=== PATIENT | female | born 1935 | race Caucasian/White ===

== ENCOUNTER 2016-10-04 10:51 | Inpatient (IN) | payer MEDICARE, OTHER ==
--- NOTE | 2016-10-04 11:23 | ED ---
General Adult HPI - General Chief complaint: Abdominal Pain Stated complaint: Abdominal pain Time Seen by Provider: 10/04/16 11:10 Source: patient, RN/MD, EMS, RN notes reviewed Mode of arrival: EMS Limitations: no limitations - History of Present Illness Initial comments: Patient is a pleasant 81-year-old female presenting from [facility] transfer with concern for abdominal free air on computed tomography scan. Patient states she did have hip replacement done just over a week ago. Patient has chronic abdominal pain which has been worse the past 3 days. Patient admits also to having some chest pain and shortness of breath which she also believes may be somewhat chronic. Patient states discomfort is severe at this time. Patient is a poor historian. Patient relates her abdominal discomfort to irritable bowel syndrome however states nobody will tell her why she has this. - Related Data Home Medications Medication Instructions Recorded Confirmed Carvedilol [Coreg] 6.25 mg PO BID 04/11/14 05/17/14 Hydrochlorothiazide [Hydrodiuril] 12.5 mg PO DAILY 04/11/14 05/17/14 Losartan Potassium [Cozaar] 50 mg PO DAILY 04/11/14 05/17/14 Pioglitazone HCl [Actos] 45 mg PO DAILY 04/11/14 05/17/14 glipiZIDE [Glucotrol] 5 mg PO DAILY 04/11/14 05/17/14 metFORMIN HCL [metFORMIN HCL ER] 1,000 mg PO BID 04/11/14 05/17/14 Previous Rx's Medication Instructions Recorded Cephalexin [Keflex] 500 mg PO Q8HR #30 cap 04/11/14 traMADol HCl [Ultram] 50 mg PO Q6H PRN #20 tab 04/11/14 Dicyclomine [Bentyl] 20 mg PO QID #30 tablet 05/17/14 Hydrocodone/Acetaminophen [[place] 1 - 2 each PO Q6HR PRN #5 tab 05/17/14 5-325] Allergies Allergy/AdvReac Type Severity Reaction Status Date / Time ciprofloxacin [From Cipro] AdvReac Nausea & Verified 10/04/16 12:05 Vomiting & Diarrhea levofloxacin [From Levaquin] AdvReac Nausea & Verified 10/04/16 12:05 Vomiting & Diarrhea Review of Systems ROS Statement: Those systems with pertinent positive or pertinent negative responses have been documented in the HPI. ROS Other: All systems not noted in ROS Statement are negative. Constitutional: Denies: fever Eyes: Denies: eye pain ENT: Denies: ear pain Respiratory: Reports: dyspnea. Denies: cough Cardiovascular: Reports: chest pain Endocrine: Reports: fatigue Gastrointestinal: Reports: abdominal pain, nausea Genitourinary: Denies: dysuria Musculoskeletal: Denies: back pain Skin: Denies: rash Neurological: Denies: weakness Past Medical History Past Medical History: Coronary Artery Disease (CAD), Diabetes Mellitus, Hypertension History of Any Multi-Drug Resistant Organisms: None Reported Past Surgical History: Coronary Bypass/CABG, Heart Catheterization With Stent, Orthopedic Surgery Past Psychological History: No Psychological Hx Reported Smoking Status: Never smoker Past Alcohol Use History: None Reported Past Drug Use History: None Reported General Exam Limitations: no limitations General appearance: alert, in no apparent distress, other (Patient is resting comfortably in bed and does not appear in any distress.) Head exam: Present: atraumatic Eye exam: Present: normal appearance, PERRL ENT exam: Present: normal oropharynx Neck exam: Present: normal inspection Respiratory exam: Present: normal lung sounds bilaterally. Absent: chest wall tenderness Cardiovascular Exam: Present: regular rate, normal rhythm Expanded Peripheral pulses: 2+: Dorsalis Pedis (R), Dorsalis Pedis (L) GI/Abdominal exam: Present: soft, tenderness (Mild tenderness lower abdomen), normal bowel sounds. Absent: distended, guarding, rebound, rigid Extremities exam: Present: normal inspection Neurological exam: Present: alert Psychiatric exam: Present: normal affect, normal mood Skin exam: Present: normal color Course Vital Signs 10/04/16 11:09 Temperature 97.8 F Pulse Rate 97 Respiratory 18 Rate Blood Pressure 138/117 O2 Sat by Pulse 99 Oximetry - Reevaluation(s) Reevaluation #1: 10/04/16 11:23 Surgeon has been paged 10/04/16 11:26 Dr. Ann was notified who is currently in the OR. EKG Findings - EKG Comments: EKG Findings:: Normal sinus rhythm 91. CT 172. QRS 80. QT 362. QTC 445. Normal axis. Normal QRS. Normal ST-T. Medical Decision Making - Medical Decision Making Dr. Ann did come evaluate the patient and will admit to ICU. He will also do a vaginal exam. Consult with medicine and cardiology. Hold Plavix. Consult with Dr. Kaur from pulmonary. Zosyn alone. - Radiology Data Radiology results: report reviewed (Computed tomography scan of the abdomen pelvis does show intraperitoneal free air. Concern for colonic vaginal fistula. ) Disposition Clinical Impression: Free intraperitoneal air Disposition: ADMITTED IP TO THIS HOSP Referrals: Dewayne Spears MD [Primary Care Provider] - 1-2 days Time of Disposition: 13:08
[2016-10-04] MEDS ORDERED: SODIUM CHLORIDE 0.9% 1,000 ML IV STA (11:26)
--- NOTE | 2016-10-04 12:38 | CT ---
EXAMINATION TYPE: CT abdomen pelvis wo con DATE OF EXAM: 10/04/2016 COMPARISON: 04/11/[address] chest same day. HISTORY: 81-year-old female abdominal pain. Free air and UTI CT DLP: 916 mGycm. Automated exposure control for dose reduction was used. TECHNIQUE: Contiguous axial scanning of the abdomen and pelvis without IV contrast. Coronal and sagit clifford reconstructions performed. FINDINGS: Heart is normal size without pericardial effusion. Coronary vessel calcifications are remarkable for coronary artery disease. There is a moderate to large hiatal hernia with a free air seen dissecting up along with the hiatal h ernia. Lung bases clear without pleural effusion. There is mild free intraperitoneal air nondependently located collecting under the hemidiaphragms and hepatorenal recess and a small focus in the juan hepatis as well. 1.8 cm cyst left hepatic lobe. Noncontrast appearance of the liver, adrenal glands, spleen with exten sive splenic artery calcifications, and atrophic pancreas show no gross abnormality by noncontrast te chnique. Large 4.1 cm cyst upper pole right kidney and a couple hypodense lesions on both sides measuring up t o 1.4 cm on the right too small for accurate CT characterization, probable cysts. Moderate apical scarring calcifications throughout the abdominal aorta and iliac arteries. No dilated small bowel, free fluid, or free air. No mesenteric or retroperitoneal lymphadenopathy. There is mild presacral edema but no significant free fluid seen in the abdomen. There is left hemicolonic diverticulosis. No pericolonic inflammatory change. IV contrast from the patient's outside CT chest exam collecting within the bladder. There is prominent air distending the uterine cavity. Air within the rectum, axial image 72 closely c ontacts air within the vaginal canal. No abnormal fluid collection in the pelvis. There appears to be relatively recent fixation of a left intertrochanteric fracture which can be everett elated clinically. There is a 4.8 cm focal area of soft tissue density along the left lateral hip lat eral to the greater trochanter that could represent a small postoperative hematoma or seroma. Degener ative changes throughout the lumbar spine. IMPRESSION: 1. Free intraperitoneal air. There is colonic diverticulosis without clear evidence for acute divert iculitis. 2. There is additional prominent air distending the uterine cavity and air within the rectum in clos e apposition to air within the vaginal canal (axial image 72). Correlate to exclude the possibility o f a fistula. Otherwise, no evident source of the free air is identified. 3. Moderate to large hiatal hernia. 4. Clinical correlation is recommended. There are inflammatory changes associated with intertrochant alison fracture of the left hip with fixation hardware present. Findings suggest recent internal fixati on. There is a 4.8 cm adjacent soft tissue hematoma or seroma.
[2016-10-04] MEDS ORDERED: NALOXONE 0.4 MG/ML 1 ML VIAL IV PRN (13:09)
[2016-10-04 13:12] LABS: Appearance,Urine Cloudy (Clear); Bilirubin,Urine Negative (Negative); Glucose,Urine (UA) Negative (Negative); Ketones,Urine Negative (Negative); Leukocyte Esterase,Urine Large (Negative); Nitrite,Urine Negative (Negative); Particle Count 9505; Protein,Urine Trace (Negative); RBC,Urine 13 /hpf (0-5); Specific Gravity,Urine 1.021 (1.001-1.035); Squamous Epithelial Cell,Urine 1 /hpf (0-4); UA Billing (MACRO vs. MICRO) MICRO; Urobilinogen,Urine <2.0 mg/dL (<2.0); WBC,Urine >182 /hpf (0-5)
[2016-10-04] MEDS ORDERED: PIPERACILLIN-TAZOBACTAM 3.375 GM in DEXTROSE/WATER 1 50ML.BAG IVPB ONE (13:30)
[2016-10-04] MEDS: ONDANSETRON 4 MG/2 ML VIAL IVP PRN ×2 (13:55→21:00)
[2016-10-04] MEDS: MORPHINE SULFATE 4 MG/ML SYRINGE IV PRN ×2 (13:57→19:54)
[2016-10-04 13:58] LABS: Basophils # (A) 0.1 k/uL (0-0.2); Basophils % (A) 1 %; CH 26.4; CHCM 29.4; Eosinophils # (A) 1.6 k/uL (0-0.7); Eosinophils % (A) 16 %; HCT 39.5 % (34.0-46.0); HDW 2.56; Hypochromasia Marked; Luc # (Auto) 0.29; Luc % (Auto) 3; Lymphocytes # (A) 3.8 k/uL (1.0-4.8); Lymphocytes % (A) 37 %; MCH 27.3 pg (25.0-35.0); MCHC 30.3 g/dL (31.0-37.0); Mean Platelet Volume 6.7; Monocytes # (A) 0.8 k/uL (0-1.0); Monocytes % (A) 8 %; Neutrophils # (A) 3.6 k/uL (1.3-7.7); Neutrophils % (A) 36 %; RDW 15.5 % (11.5-15.5); WBC 10.2 k/uL (3.8-10.6); WBC (Perox) 10.48
[2016-10-04 14:14] LABS: INR 1.1 (<1.1); Partial Thromboplastin Time 24.1 sec (22.0-30.0); Prothrombin Time 11.1 sec (9.0-12.0)
[2016-10-04 14:16] LABS: Glucose,Whole Blood 122 mg/dL (75-99)
[2016-10-04 14:30] LABS: ALT 32 U/L (9-52); AST 48 U/L (14-36); Alkaline Phosphatase 109 U/L (38-126); Amylase 51 U/L (30-110); Anion Gap 12 mmol/L; Blood Urea Nitrogen 11 mg/dL (7-17); Calcium 9.8 mg/dL (8.4-10.2); Carbon Dioxide 21 mmol/L (22-30); Chloride 103 mmol/L (98-107); Glucose 131 mg/dL (74-99); Non-African American GFR(MDRD) >60 (>60 ml/min/1.73 sqM); Sodium 136 mmol/L (137-145); Total Bilirubin 0.8 mg/dL (0.2-1.3); Total Protein 7.7 g/dL (6.3-8.2)
[2016-10-04 14:32] LABS: Potassium 5.2 mmol/L (3.5-5.1)
--- NOTE | 2016-10-04 15:17 | P.GSHP ---
History of Present Illness H&P Date: 10/04/16 Chief Complaint: Lower abdominal pain The patient is a very pleasant 81-year-old lady who has a known history of irritable bowel syndrome. She presents with 2-4 weeks of abdominal pain primarily localized in the lower abdomen which is progressively gotten worse. The patient had her hip replaced on August [address] Scanlon at [facility] and was then sent to rehab. Over the rehab she had initially significant problems with constipation and bowel movements and was given MiraLAX and had started moving bowels. Over this pain has worsened becoming an 8-9 out of 10. The pain is well localized in the lower part of the abdomen seems to radiate up towards the epigastrium there is no associated nausea and vomiting she's tolerating liquid diet does have bowel movements is not aware whether she is passing any stool from her vagina. She is not aware if she is passing any flatus from her vagina. She is not able to urinate properly and therefore has a Cole catheter in place she is having regular bowel movements and sometimes has some incontinence. She is unable to say with the stool comes from. There is no history of fever or chills there's some history of weight loss is some limitation of ambulation. She is overall has a complex medical history with significant cardiac problems including last cardiac bypass, couple of stents, diabetes mellitus. She is not complaining of any distention or bloating. She's not complaining of any bleeding per rectum. - Constitutional Constitutional: Reports anorexia, Reports chills, Denies chronic headaches, Denies chronic pain, Denies daytime sleepiness, Denies fatigue, Denies fever - EENT Eyes: denies blurred vision, denies pain Ears, nose, mouth and throat: Denies headache, Denies sore throat - Cardiovascular Cardiovascular: Reports dyspnea on exertion, Denies chest pain - Respiratory Respiratory: Denies cough, Denies 7 - Gastrointestinal Gastrointestinal: Reports as per HPI, Reports abdominal pain - Genitourinary (Female) Comment: indwelling cole Genitourinary: Denies dysuria, Denies hematuria - Musculoskeletal Musculoskeletal: Denies myalgias Past Medical History Past Medical History: Coronary Artery Disease (CAD), Chest Pain / Angina, Diabetes Mellitus, Hyperlipidemia, Hypertension, Myocardial Infarction (AK), Renal Disease Additional Past Medical History / Comment(s): Abdominal pain chronic for past 3 yrs, IBS, diverticular dx, colon spasms, [place] 05/04/16, "leaky heart valve", NIDDM type II, peripheral neuropathy bilateral feet and alittle in bilateral hands, nephrolithiasis, insomnia, UTIs, arthritis R knee, bilateral cataracts with L eye worse. Last Myocardial Infarction Date:: 05/04/16 History of Any Multi-Drug Resistant Organisms: None Reported Past Surgical History: Coronary Bypass/CABG, Heart Catheterization With Stent, Orthopedic Surgery Additional Past Surgical History / Comment(s): 1999 CABG 3 vessel, PCI with stent 2012 and PCI with stent 05/04/16 at [facility], colonoscopies/egd's Past Anesthesia/Blood Transfusion Reactions: No Reported Reaction Date of Last Stent Placement:: 05/04/16 Past Psychological History: Anxiety Additional Psychological History / Comment(s): Pt currently resides at [facility] where she is undergoing rehab. She is mostly still in a wheelchair but has walked with walker a couple times. Smoking Status: Never smoker Past Alcohol Use History: None Reported Past Drug Use History: None Reported - Past Family History Father Family Medical History: Cancer Additional Family Medical History / Comment(s): Father of lung cancer at the age of 68yrs. He was a smoker. Mother Family Medical History: No Reported History Additional Family Medical History / Comment(s): Mother was healthy and at the age of 87yrs. Medications and Allergies Home Medications Medication Instructions Recorded Confirmed Type Carvedilol [Coreg] 6.25 mg PO BID 04/11/14 05/17/14 History Hydrochlorothiazide [Hydrodiuril] 12.5 mg PO DAILY 04/11/14 05/17/14 History Losartan Potassium [Cozaar] 50 mg PO DAILY 04/11/14 05/17/14 History Pioglitazone HCl [Actos] 45 mg PO DAILY 04/11/14 05/17/14 History glipiZIDE [Glucotrol] 5 mg PO DAILY 04/11/14 05/17/14 History metFORMIN HCL [metFORMIN HCL ER] 1,000 mg PO BID 04/11/14 05/17/14 History Allergies Allergy/AdvReac Type Severity Reaction Status Date / Time ciprofloxacin [From Cipro] AdvReac Nausea & Verified 10/04/16 12:05 Vomiting & Diarrhea levofloxacin [From Levaquin] AdvReac Nausea & Verified 10/04/16 12:05 Vomiting & Diarrhea Surgical - Exam Vital Signs Temp Pulse Resp BP Pulse Ox 97.8 F 97 18 138/117 99 10/04/16 11:09 10/04/16 11:09 10/04/16 11:09 10/04/16 11:10/04/16 11:09 - General well developed, well nourished, moderate distress - Eyes PERRL, normal ocular movement, no pale, no icteric, no deviation - ENT normal pinna, normal nares, normal mucosa, no no hearing loss - Neck no masses, trachea midline - Respiratory normal expansion, normal respiratory effort - Cardiovascular Rhythm: regular - Abdomen Patient has a absolutely scaphoid soft abdomen without any peritoneal signs or distention. Abdomen: soft, tender, no organomegaly, no masses, no guarding, no rebound, no distended - Genitourinary Vaginal exam was performed and was normal - Rectum Rectal examination was performed with normal tone no him appreciated hemorrhoids questionable induration anteriorly 6 cm from the anal verge. There was no stool in the rectal vault. The mucosa was otherwise normal - Integumentary Left hip scar no rash, no growths - Neurologic no disoriented, no combative - Musculoskeletal normal posture - Psychiatric oriented to time, oriented to person, oriented to place, speech is normal, memory intact Results - Labs 10/04/16 13:33 10/04/16 13:33 Abnormal Lab Results - Last 24 Hours (Table) 10/04/16 10/04/16 10/04/16 Range/Units 12:30 13:33 13:33 MCHC 30.3 L (31.0-37.0) g/dL Eosinophils # 1.6 H (0-0.7) k/uL Sodium 136 L (137-145) mmol/L Potassium 5.2 H (3.5-5.1) mmol/L Carbon Dioxide 21 L (22-30) mmol/L Creatinine 0.41 L (0.52-1.04) mg/dL Glucose 131 H (74-99) mg/dL POC Glucose (mg/dL) (75-99) mg/dL AST 48 H (14-36) U/L Urine Appearance Cloudy H (Clear) Urine Protein Trace H (Negative) Urine Blood Trace H (Negative) Ur Leukocyte Esterase Large H (Negative) Urine RBC 13 H (0-5) /hpf Urine WBC >182 H (0-5) /hpf Urine WBC Clumps Few H (None) /hpf 10/04/16 Range/Units 14:14 MCHC (31.0-37.0) g/dL Eosinophils # (0-0.7) k/uL Sodium (137-145) mmol/L Potassium (3.5-5.1) mmol/L Carbon Dioxide (22-30) mmol/L Creatinine (0.52-1.04) mg/dL Glucose (74-99) mg/dL POC Glucose (mg/dL) 122 H (75-99) mg/dL AST (14-36) U/L Urine Appearance (Clear) Urine Protein (Negative) Urine Blood (Negative) Ur Leukocyte Esterase (Negative) Urine RBC (0-5) /hpf Urine WBC (0-5) /hpf Urine WBC Clumps (None) /hpf Diabetes panel 10/04/16 Range/Units 13:33 Sodium 136 L (137-145) mmol/L Potassium 5.2 H (3.5-5.1) mmol/L Chloride 103 (98-107) mmol/L Carbon Dioxide 21 L (22-30) mmol/L BUN 11 (7-17) mg/dL Creatinine 0.41 L (0.52-1.04) mg/dL Glucose 131 H (74-99) mg/dL Calcium 9.8 (8.4-10.2) mg/dL AST 48 H (14-36) U/L ALT 32 (9-52) U/L Alkaline Phosphatase 109 (38-126) U/L Total Protein 7.7 (6.3-8.2) g/dL Albumin 3.6 (3.5-5.0) g/dL Calcium panel 10/04/16 Range/Units 13:33 Calcium 9.8 (8.4-10.2) mg/dL Albumin 3.6 (3.5-5.0) g/dL Pituitary panel 10/04/16 Range/Units 13:33 Sodium 136 L (137-145) mmol/L Potassium 5.2 H (3.5-5.1) mmol/L Chloride 103 (98-107) mmol/L Carbon Dioxide 21 L (22-30) mmol/L BUN 11 (7-17) mg/dL Creatinine 0.41 L (0.52-1.04) mg/dL Glucose 131 H (74-99) mg/dL Calcium 9.8 (8.4-10.2) mg/dL Adrenal panel 10/04/16 Range/Units 13:33 Sodium 136 L (137-145) mmol/L Potassium 5.2 H (3.5-5.1) mmol/L Chloride 103 (98-107) mmol/L Carbon Dioxide 21 L (22-30) mmol/L BUN 11 (7-17) mg/dL Creatinine 0.41 L (0.52-1.04) mg/dL Glucose 131 H (74-99) mg/dL Calcium 9.8 (8.4-10.2) mg/dL Total Bilirubin 0.8 (0.2-1.3) mg/dL AST 48 H (14-36) U/L ALT 32 (9-52) U/L Alkaline Phosphatase 109 (38-126) U/L Total Protein 7.7 (6.3-8.2) g/dL Albumin 3.6 (3.5-5.0) g/dL Assessment and Plan (1) Diabetes mellitus Status: Acute (2) History of coronary artery stent placement Status: Acute (3) Free intraperitoneal air Status: Acute Plan: Patient is an 81-year-old female who had chronic constipation status post hip replacement. She is a previous history of diverticulosis and irritable bowel syndrome with irregular bowel movements. There is no history of fever or chills. She was taking significant amount of narcotic status post a hip replacement. She was on MiraLAX for bowel movements which started the bowel movements and she has been known to have significant constipation. On exam the abdomen and subcutis E soft without any guarding or rebound. Computed tomography scan of the abdomen pelvis reveals some air with air within the uterus. There is an area of inflammation between the rectum and the uterus. There is suspected to be a fistula there. The patient does not give any history of stool from her vagina. On exam there was no stool in her vagina. On her exam abdomen is absolutely soft. Her white count is to 10.3 without any left shift. At this time although there is a finding of free air in the abdomen due to the above-mentioned features have elected to observe this patient in the ICU. This is because the patient is high risk from the cardiac standpoint. She is currently on Plavix and is also at high risk for bleeding if surgery were to be done. Because of her age and multiple comorbidities prognosis remains guarded and she is in serious condition. I have recommended using Zosyn every 6 hours, she will be evaluated again at intervals and only if she continues to worsen or her exam changes then we will attempt possible Ronel's procedure. Other detailed discussion with the family that this is a major abdominal surgery with possible complications they understand and agree with the current conservative treatment with the possibility of needing to go to the operating room emergently.
--- NOTE | 2016-10-04 18:10 | P.CNPUL ---
History of Present Illness Consult date: 10/04/16 Requesting physician: Jose Ann Reason for consult: other (Critical care management) Chief complaint: Abdominal pain History of present illness: This is a very pleasant 81-year-old female patient who follows with Dr. Spears as her primary care physician. She has a history of diabetes mellitus, hypertension, coronary artery disease with previous coronary artery bypass grafting. Most recently she had some cardiac stent placements in April 2016 at [facility]. She had been in inpatient rehabilitation where she fell and broke her hip a few weeks ago and remained in an extended care facility in [place]. 2-3 days ago she developed abdominal discomfort and presented to [facility] today for the same. A computed tomography scan revealed abdominal free air and she was transferred here to our emergency room. 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 She had been seen and evaluated by Dr. Ann for possible surgical repair however after his discussion with the patient and family who continue with conservative treatment. The patient remains on Plavix for her stent placement in April 2016. Computed tomography scan of the abdomen here does reveal free intraperitoneal air with colonic diverticulosis without clear evidence of acute diverticulitis. There is additional prominent air distending the uterine cavity and air within the rectum and close apposition to air within the vaginal canal. Suspect fistula. There is moderate to large hiatal hernia. She is seen currently in the intensive care unit. She is awake and alert in no acute distress. She does continue with abdominal discomfort but is not guarding or complaining of significant pain. No other complaints. No chest pain, no shortness of breath. No fever chills or night sweats. She does have fatigue. She has no leukocytosis. Hemoglobin stable at 12.0. Sodium 136 potassium 5.2 carbon dioxide 21 creatinine 0.41. Urinalysis has large amount of leukocytes, greater than 182 WBCs. She is maintaining good O2 saturations in the high 90s on 2 L/m per nasal cannula. She's been afebrile. Hemodynamically stable. Review of Systems 14 point review of system was conducted. All negative other than as mentioned in the HPI. Past Medical History Past Medical History: Coronary Artery Disease (CAD), Chest Pain / Angina, Diabetes Mellitus, Hyperlipidemia, Hypertension, Myocardial Infarction (ME), Renal Disease Additional Past Medical History / Comment(s): Abdominal pain chronic for past 3 yrs, IBS, diverticular dx, colon spasms, ME 05/04/16, "leaky heart valve", NIDDM type II, peripheral neuropathy bilateral feet and alittle in bilateral hands, nephrolithiasis, insomnia, UTIs, arthritis R knee, bilateral cataracts with L eye worse. Last Myocardial Infarction Date:: 05/04/16 History of Any Multi-Drug Resistant Organisms: None Reported Past Surgical History: Coronary Bypass/CABG, Heart Catheterization With Stent, Orthopedic Surgery Additional Past Surgical History / Comment(s): 1999 CABG 3 vessel, PCI with stent 2012 and PCI with stent 05/04/16 at [facility], colonoscopies/egd's Past Anesthesia/Blood Transfusion Reactions: No Reported Reaction Date of Last Stent Placement:: 05/04/16 Past Psychological History: Anxiety Additional Psychological History / Comment(s): Pt currently resides at [facility] where she is undergoing rehab. She is mostly still in a wheelchair but has walked with walker a couple times. Smoking Status: Never smoker Past Alcohol Use History: None Reported Past Drug Use History: None Reported - Past Family History Father Family Medical History: Cancer Additional Family Medical History / Comment(s): Father of lung cancer at the age of 68yrs. He was a smoker. Mother Family Medical History: No Reported History Additional Family Medical History / Comment(s): Mother was healthy and at the age of 87yrs. Medications and Allergies Home Medications Medication Instructions Recorded Confirmed Type Hydrochlorothiazide [Hydrodiuril] 12.5 mg PO DAILY 04/11/14 10/04/16 History glipiZIDE [Glucotrol] 5 mg PO DAILY 04/11/14 10/04/16 History metFORMIN HCL [metFORMIN HCL ER] 1,000 mg PO BID 04/11/14 10/04/16 History Acetaminophen [Tylenol] 1,000 mg PO Q6HR PRN 10/04/16 10/04/16 History Amitriptyline HCl 50 mg PO HS 10/04/16 10/04/16 History Aspirin [Adult Low Dose Aspirin EC] 81 mg PO DAILY 10/04/16 10/04/16 History Atorvastatin [Lipitor] 40 mg PO HS 10/04/16 10/04/16 History Carvedilol [Coreg] 3.125 mg PO BID 10/04/16 10/04/16 History Cetirizine HCl [Zyrtec] 10 mg PO DAILY 10/04/16 10/04/16 History Cholecalciferol (Vitamin D3) 2,000 unit PO DAILY 10/04/16 10/04/16 History [Vitamin D3] Citalopram Hydrobromide [CeleXA] 20 mg PO DAILY 10/04/16 10/04/16 History Clopidogrel Bisulfate [Plavix] 75 mg PO DAILY 10/04/16 10/04/16 History Esomeprazole Magnesium [NexIUM] 40 mg PO DAILY 10/04/16 10/04/16 History Isosorbide Mononitrate ER [Imdur] 30 mg PO DAILY 10/04/16 10/04/16 History LORazepam [Ativan] 1 mg PO HS PRN 10/04/16 10/04/16 History Losartan Potassium [Cozaar] 25 mg PO DAILY 10/04/16 10/04/16 History Multivit-Min/Iron/Folic/Lutein 1 tab PO DAILY 10/04/16 10/04/16 History [Centrum Silver Women Tablet] Nitroglycerin Sl Tabs [Nitrostat] 0.4 mg SUBLINGUAL Q5M PRN 10/04/16 10/04/16 History Triamcinolone 0.1% Cream [Kenalog] 1 applicatio TOPICAL BID 10/04/16 10/04/16 History Allergies Allergy/AdvReac Type Severity Reaction Status Date / Time ciprofloxacin [From Cipro] AdvReac Nausea & Verified 10/04/16 15:11 Vomiting & Diarrhea levofloxacin [From Levaquin] AdvReac Nausea & Verified 10/04/16 15:11 Vomiting & Diarrhea Physical Exam Vitals: Vital Signs Temp Pulse Resp BP Pulse Ox 10/04/16 17:15 79 28 H 145/77 94 L 10/04/16 17:00 78 15 145/77 100 10/04/16 16:45 79 12 170/79 99 10/04/16 16:30 98 21 170/79 91 L 10/04/16 16:15 90 12 170/76 98 10/04/16 16:00 72 11 L 170/76 100 10/04/16 15:45 75 16 150/68 98 10/04/16 15:30 72 16 150/68 97 10/04/16 15:15 84 16 158/78 100 10/04/16 15:00 86 20 158/78 99 10/04/16 14:45 79 20 181/83 90 L 10/04/16 14:30 97.8 F 77 18 181/83 100 10/04/16 14:14 77 13 10/04/16 13:52 97.7 F 68 18 160/81 100 10/04/16 11:09 97.8 F 97 18 138/117 99 Intake and Output 10/04/16 10/04/16 10/04/16 06:59 14:59 22:59 Intake Total 400 Balance 400 Intake: IV 350 Piperacillin-Tazobactam 3 50 .375 gm In Dextrose/Water 1 50ml.bag @ 12.5 mls/hr IVPB ONCE ONE Rx#: [id number] Sodium Chloride 0.9% 1, 300 000 ml @ 100 mls/hr IV . Q10H STA Rx#:[id number] Intake, IV Titration 50 Amount Piperacillin-Tazobactam 3 50 .375 gm In Dextrose/Water 1 50ml.bag @ 12.5 mls/hr IVPB ONCE ONE Rx#: [id number] Other: # Voids 1 Weight 69.4 kg Patient Weight 10/05/16 06:59 Weight 69.4 kg GENERAL EXAM: Alert, fairly comfortable in no apparent distress. HEAD: Normocephalic. EYES: Normal reaction of pupils, equal size. NOSE: Clear with pink turbinates. THROAT: No erythema or exudates. NECK: No masses, no JVD. CHEST: No chest wall deformity. LUNGS: Equal air entry with no crackles, wheeze, rhonchi or dullness. CVS: S1 and S2 normal with no audible murmurs, regular rhythm. ABDOMEN: Soft, tender to palpation, normal bowel sounds, no guarding or rigidity. SPINE: No scoliosis or deformity SKIN: No rashes CENTRAL NERVOUS SYSTEM: No focal deficits, tone is normal in all 4 extremities. Extremities: There is no significant peripheral edema. No clubbing, no cyanosis. Peripheral pulses are intact. Results - Laboratory Findings CBC and BMP: 10/04/16 13:33 10/04/16 13:33 PT/INR, D-dimer PT 11.1 sec (9.0-12.0) 10/04/16 13:33 INR 1.1 (<1.1) 10/04/16 13:33 Abnormal lab findings: Abnormal Labs 10/04/16 10/04/16 10/04/16 12:30 13:33 13:33 MCHC 30.3 L Eosinophils # 1.6 H Sodium 136 L Potassium 5.2 H Carbon Dioxide 21 L Creatinine 0.41 L Glucose 131 H POC Glucose (mg/dL) AST 48 H Urine Appearance Cloudy H Urine Protein Trace H Urine Blood Trace H Ur Leukocyte Esterase Large H Urine RBC 13 H Urine WBC >182 H Urine WBC Clumps Few H 10/04/16 14:14 MCHC Eosinophils # Sodium Potassium Carbon Dioxide Creatinine Glucose POC Glucose (mg/dL) 122 H AST Urine Appearance Urine Protein Urine Blood Ur Leukocyte Esterase Urine RBC Urine WBC Urine WBC Clumps Assessment and Plan Plan: Impression: #1 Abdominal pain secondary to free air in the abdomen and pelvis. There is colonic diverticulosis without clear evidence of acute diverticulitis. The ears descending into the uterine cavity and within the rectum and close apposition to air within the vaginal canal. 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 Based on the patient's cardiac history and currently on Plavix for recent stent placement and her age and other comorbidities there is no plans for surgical intervention at this time. If her condition worsens surgical services plans to attempt possible Wang's procedure. #2 Recent fall with left intracranial canter hip fracture status post repair recovering in extended care facility. #3 Coronary artery disease with previous coronary artery bypass grafting and most recently stent placement in April 2016 at [facility]. Currently on Plavix and aspirin. #4 Hypertension. #5 Diabetes mellitus #6 History of irritable bowel syndrome along with history of chronic constipation following hip repair. Plan: The patient was seen and evaluated by Dr. Kaur. She is currently stable from the pulmonary and critical care standpoint. We will observe her here closely in the intensive care unit another 24 hours. Again, the plan is for observation and no plans for surgical correction unless the patient's condition deteriorates. She remains on IV Zosyn. We'll continue with her home medications. She'll be on Lovenox for DVT prophylaxis, Protonix for GI prophylaxis. We will continue to follow and make further recommendations based on her clinical status. Time with Patient: Greater than 30
[2016-10-04] MEDS ORDERED: NITROGLYCERIN SL TABS 0.4 MG TAB SUBLINGUAL PRN (20:19)
[2016-10-04] MEDS ORDERED: LORazepam 1 MG TAB PO PRN (20:19)
[2016-10-04] MEDS: AMITRIPTYLINE HCL 50 MG TAB PO SCH (21:00)
[2016-10-04] MEDS: ASPIRIN 81 MG CHEW PO SCH (21:00)
[2016-10-04] MEDS: TRIAMCINOLONE 0.1% CREAM 80 GM TUBE TOPICAL SCH (21:00)
[2016-10-04] MEDS: CARVEDILOL 3.125 MG TAB PO SCH (21:00)
[2016-10-04] MEDS: ATORVASTATIN 40 MG TAB PO SCH (21:00)
[2016-10-04] MEDS: SODIUM CHLORIDE 0.9% 1,000 ML IV SCH (21:02)
[2016-10-05] MEDS: PIPERACILLIN-TAZOBACTAM 3.375 GM in DEXTROSE/WATER 1 50ML.BAG IVPB SCH ×4 (00:16→23:20)
[2016-10-05] MEDS: SODIUM CHLORIDE 0.9% 1,000 ML IV SCH ×3 (00:16→18:20)
[2016-10-05 04:44] LABS: CH 26.5; CHCM 29.6; HCT 37.7 % (34.0-46.0); HDW 2.52; HGB 11.3 gm/dL (11.4-16.0); Hypochromasia Marked; MCH 26.9 pg (25.0-35.0); MCHC 29.9 g/dL (31.0-37.0); MCV 89.8 fL (80.0-100.0); Mean Platelet Volume 6.8; RDW 15.5 % (11.5-15.5); WBC (Perox) 8.36
[2016-10-05 04:56] LABS: Anion Gap 7 mmol/L; Blood Urea Nitrogen 10 mg/dL (7-17); Calcium 9.2 mg/dL (8.4-10.2); Carbon Dioxide 25 mmol/L (22-30); Chloride 104 mmol/L (98-107); Glucose 132 mg/dL (74-99); Magnesium 1.6 mg/dL (1.6-2.3); Non-African American GFR(MDRD) >60 (>60 ml/min/1.73 sqM); Phosphorous 3.9 mg/dL (2.5-4.5); Potassium 4.2 mmol/L (3.5-5.1); Sodium 136 mmol/L (137-145)
[2016-10-05 05:15] LABS: Add Differential Manual Differential
[2016-10-05 05:17] LABS: Manual Review Performed; Nucleated Red Blood Cells 0 /100 WBC (0-0); Total Cells Counted 100
[2016-10-05] MEDS ORDERED: Magnesium Replacement Protocol 1 EACH MISC MISCELLANE PRN (05:25)
[2016-10-05] MEDS: MAGNESIUM SULFATE-D5W PMX 1 GM in DEXTROSE/WATER 1 100ML.BAG IVPB SCH ×2 (05:50→09:01)
[2016-10-05] MEDS ORDERED: CLOPIDOGREL 75 MG TAB PO SCH (09:00)
[2016-10-05] MEDS: PANTOPRAZOLE 40 MG/10 ML VIAL IV SCH (09:01)
[2016-10-05] MEDS: ISOSORBIDE MONONITRATE ER 30 MG TAB.ER.24H PO SCH (09:06)
[2016-10-05] MEDS: CARVEDILOL 3.125 MG TAB PO SCH ×2 (09:07→17:39)
[2016-10-05] MEDS: ENOXAPARIN 40 MG/0.4 ML SYRINGE SQ SCH (09:07)
[2016-10-05] MEDS: LOSARTAN 25 MG TAB PO SCH (09:07)
[2016-10-05] MEDS: ASPIRIN 81 MG CHEW PO SCH (09:07)
[2016-10-05] MEDS: CITALOPRAM HYDROBROMIDE 20 MG TAB PO SCH (09:07)
[2016-10-05] MEDS: TRIAMCINOLONE 0.1% CREAM 80 GM TUBE TOPICAL SCH ×2 (09:08→19:47)
[2016-10-05] MEDS: ONDANSETRON 4 MG/2 ML VIAL IVP PRN (09:19)
[2016-10-05] MEDS: MORPHINE SULFATE 4 MG/ML SYRINGE IV PRN ×3 (09:19→19:41)
--- NOTE | 2016-10-05 10:22 | CONS ---
DATE OF CONSULTATION: 10/04/2016 REASON FOR CONSULTATION: Medical management requested by Dr. Ann. CONSULTATION: This is a pleasant 81-year-old patient with rather extensive medical history. Patient is a resident of [facility], recently had a hip done at [facility] by Dr. Scanlon. Post procedure, patient had a catheter for some time. Patient's chronic stable medical conditions include coronary artery disease, diabetes, hypertension, hyperlipidemia, chronic kidney disease, irritable bowel syndrome, diverticulosis, peripheral neuropathy, kidney stones, insomnia, osteoarthritis. The patient states that she has had abdominal pain on and off for about 3 years. For last 3 or 4 days, the pain became more severe, lower abdomen, going to the center of the abdomen. No nausea. Patient's appetite has gone down. Patient did have a CT scan done at [facility], showed some free air and patient was transferred down here. Repeat CT scan did confirm a free air and possibly a colovaginal fistula. The patient denies any stool or flatus being passed through the vagina. Patient is not a very detailed historian. Currently lying in bed, made n.p.o. except for ice chips. Patient's pain is rather significant. REVIEW OF SYSTEMS: CONSTITUTIONAL: Decreased appetite, weak, tired. HEENT: Decreased hearing. RESPIRATORY: None. CARDIOVASCULAR: None. GASTROINTESTINAL: As above. GENITOURINARY: Urinary incontinence. MUSCULOSKELETAL: Arthritic pain in multiple joints. DERMATOLOGICAL: None. HEMATOLOGICAL: None. LYMPHATICS: None. PSYCHIATRY: Slightly forgetful. NEUROLOGICAL: None. Past history of coronary artery disease with CABG, diabetes, hyperlipidemia, hypertension, chronic kidney disease, irritable bowel syndrome, diverticulosis, peripheral neuropathy, kidney stones, insomnia, osteoarthritis. PAST SURGICAL HISTORY: Coronary artery bypass, cardiac cath with stent, 3-vessel bypass in 1999, stent in 2012 and PTCA with stent at [facility] in April of this year. SOCIAL HISTORY: Resident of [facility]. No smoking or alcohol. Patient is pretty much using a wheelchair, but has used a walker a couple of times. Father had lung cancer, at the age of 68. HOME MEDICATIONS: 1. Multivitamin 1 tablet p.o. daily. 2. Cozaar 25 mg p.o. daily. 3. Plavix 75 mg p.o. daily. 4. Coreg 3.125 p.o. b.i.d. 5. Nitrostat 0.4 sublingual q.5 p.r.n. 6. Nexium 40 mg p.o. daily. 7. Imdur ER 30 mg p.o. daily. 8. Lipitor 40 mg p.o. q.h.s. 9. Tylenol 1000 mg every 6 hours p.r.n. 10. Kenalog topical b.i.d. 11. Zyrtec 10 mg p.o. daily. 12. Aspirin 81 mg p.o. daily. 13. Ativan 1 mg p.o. q.h.s. p.r.n. 14. Celexa 20 mg p.o. daily. 15. Vitamin D3, 2000 units p.o. daily. 16. Amitriptyline 50 mg p.o. q.h.s. 17. Metformin 1000 mg p.o. b.i.d. 18. Glucotrol 5 mg p.o. daily. 19. Hydrochlorothiazide 12.5 p.o. daily. ALLERGIES: CIPRO AND LEVAQUIN. On examination, temperature 97.8, pulse 77, respiration 18, blood pressure 118/83, pulse 100% on 2L. GENERAL APPEARANCE: Average build, lying in bed, not in distress. EYES: Pupils equal. Conjunctivae normal. HEENT: Oral cavity normal. NECK: JVD not raised. Mass not palpable. RESPIRATORY: Effort normal. Lungs are clear. CARDIOVASCULAR: First and second sounds normal. No edema. ABDOMEN: Some lower abdominal tenderness. No guarding or rigidity. Liver and spleen not palpable. LYMPHATIC: No lymph node palpable in neck or axillae. PSYCHIATRY: Able to answer simple questions. Mood and affect normal. MUSCULOSKELETAL: Evidence of osteoarthritis, especially in the hands and knees. INVESTIGATIONS: White count 10.2, hemoglobin 12.0. Potassium 5.2, BUN 11, creatinine 0.41. UA positive for leuko esterase and WBC. CT scan of the abdomen shows free intraperitoneal air and colonic diverticulosis noted. There is some suggestion of a colovaginal fistula, moderate to large hiatal hernia. ASSESSMENT: 1. The patient presented with acute abdomen for the last 3 to 4 days and central abdominal pain present chronically. CT scan of the abdomen is showing some free air with colovaginal fascia. 2. Colonic diverticulosis. 3. Moderate to large hiatal hernia. 4. Primary osteoarthritis of multiple joints, bilateral. 5. Coronary artery disease with history of coronary artery bypass grafting and last stent on 05/04/2016 at [facility]. 6. Diabetes mellitus type 2 on oral hypoglycemics. 7. Hyperlipidemia. 8. Hypertensive urgency, present on admission. 9. Irritable bowel syndrome. 10. Peripheral neuropathy from diabetes. 11. Kidney stones, asymptomatic. 12. Chronic insomnia. 13. Medical debility. Patient uses a wheelchair and a walker currently. PLAN: Patient is being made n.p.o. except for ice chips. Patient is on IV Zosyn. If patient has to have surgery, in that case, Plavix may have to be held, but given that patient has a stent 6 months ago, that is somewhat borderline for dual-antiplatelet agents for a stent. Will have Cardiology decide the same or Dr. Ann about if he can put the patient back on aspirin and Plavix. Patient on Lovenox for DVT prophylaxis. Will keep an eye on patient's blood pressure medications. Patient is currently in the ICU for close monitoring. Thank you, Dr. Ann. Care was discussed in detail with the patient.
[2016-10-05 11:05] VITALS: BMI 24.1
--- NOTE | 2016-10-05 12:01 | CONS ---
CHIEF COMPLAINT: Preop cardiac evaluation. Yane is an 81-year-old lady with history of coronary artery disease, status post CABG, status post angioplasty who is admitted to hospital with free air in the abdomen thought to be secondary to a rectovesical fistula. Cardiology had been consulted for preop cardiac evaluation. She is currently free of chest pain, difficulty in breathing, palpitations or syncope. She has some abdominal discomfort. Her abdominal pain had been going on for the last 2 to 4 weeks. PAST MEDICAL HISTORY : Significant for coronary artery disease, status post CABG, status post prior angioplasty, hypertension, dyslipidemia, [id number] diabetes. Medications include: 1. Cozaar 25 daily. 2. Plavix 75 mg daily. 3. Coreg 3.125 b.i.d. 4. Nexium 40 daily. 5. Imdur 30 daily. 6. Lipitor 40 daily. 7. Kenalog. 8. Zyrtec. 9. Aspirin. 10. Ativan. 11. Celexa. 12. Vitamin D. 13. Metformin. 14. Glucotrol and 15. HydroDIURIL. ALLERGIC TO CIPRO AND LEVAQUIN. FAMILY HISTORY: Negative for premature coronary artery disease. SOCIAL HISTORY: Negative for current smoking, EtOH abuse or drug abuse. REVIEW OF SYSTEMS: HEENT: Unremarkable. CARDIAC: As described above. RESPIRATORY: Negative. GENITOURINARY: Negative. ALLERGY/IMMUNOLOGY: Negative. MUSCULOSKELETAL: Negative. DERMATOLOGY: Negative. CONSTITUTIONAL: Negative. ONCOLOGICAL: Negative. MARKETING SERVICES REP: Negative. GI: Significant for abdominal pain. Rest of the system review is not relevant. On exam, comfortable at rest. Vital signs are stable. There is jugular venous distention. Carotid upstroke is normal. There is no bruit. Chest reveals good air entry bilaterally. Heart reveals first and second heart sounds, has a systolic murmur at the apex. Abdomen is soft. Extremities did not reveal edema. Peripheral pulses are felt. MARKETING SERVICES REP did not reveal focal neurological deficits. Labs show hemoglobin of 11.9, platelet count is 319. Creatinine is 0.5. Potassium is 4.2. ASSESSMENT: Preoperative cardiac evaluation. 1. 2. Coronary artery disease, status post coronary artery bypass grafting , status post angioplasty within the last 6 months. 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 3. Hypertension. 4. 5. [id number] diabetes. PLAN: From cardiac standpoint, there are no contraindications for surgery under anesthesia as patient is chest pain free and is currently not in overt heart failure. She is on Plavix. We can stop the Plavix prior to surgery, understanding that there is a risk of stent thrombosis, but if surgery needs to be done, it needs to be done. I explained these issues at length to the patient. She understands and is in agreement with the plans.
--- NOTE | 2016-10-05 12:48 | P.PN ---
Subjective This is a very pleasant 81-year-old female patient who follows with Dr. Spears as her primary care physician. She has a history of diabetes mellitus, hypertension, coronary artery disease with previous coronary artery bypass grafting. Most recently she had some cardiac stent placements in April 2016 at [facility]. She had been in inpatient rehabilitation where she fell and broke her hip a few weeks ago and remained in an extended care facility in [place]. 2-3 days ago she developed abdominal discomfort and presented to [facility] today for the same. A computed tomography scan revealed abdominal free air and she was transferred here to our emergency room. 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 She had been seen and evaluated by Dr. Ann for possible surgical repair however after his discussion with the patient and family who continue with conservative treatment. The patient remains on Plavix for her stent placement in April 2016. Computed tomography scan of the abdomen here does reveal free intraperitoneal air with colonic diverticulosis without clear evidence of acute diverticulitis. There is additional prominent air distending the uterine cavity and air within the rectum and close apposition to air within the vaginal canal. Suspect fistula. There is moderate to large hiatal hernia. She is seen currently in the intensive care unit. She is awake and alert in no acute distress. She does continue with abdominal discomfort but is not guarding or complaining of significant pain. No other complaints. No chest pain, no shortness of breath. No fever chills or night sweats. She does have fatigue. She has no leukocytosis. Hemoglobin stable at 12.0. Sodium 136 potassium 5.2 carbon dioxide 21 creatinine 0.41. Urinalysis has large amount of leukocytes, greater than 182 WBCs. She is maintaining good O2 saturations in the high 90s on 2 L/m per nasal cannula. She's been afebrile. Hemodynamically stable. The patient is seen again today 10/05/2016 in follow-up in the intensive care unit. She remains awake and alert in no acute distress. She does have ongoing complaints of abdominal discomfort. She remains afebrile. No leukocytosis. She is maintaining good O2 saturations in the 90s on 2 L/m per nasal cannula. She denies any shortness of breath, cough or congestion. Hemoglobin stable. Hemodynamically stable. Objective - Vital Signs Vital signs: Vital Signs Temp 98 F 10/05/16 08:00 Pulse 89 10/05/16 10:00 Resp 16 10/05/16 10:00 BP 144/72 10/05/16 10:00 Pulse Ox 100 10/05/16 10:00 Intake & Output 10/04/16 10/05/16 10/05/16 18:59 06:59 18:59 Intake Total 500 1400.0 330 Output Total 600 1125 390 Balance -100 275.0 -60 Weight 69.4 kg 70 kg 70 kg Intake: IV 450 1400.0 330 Piperacillin-Tazobactam 3 50 50.0 .375 gm In Dextrose/Water 1 50ml.bag @ 12.5 mls/hr IVPB ONCE ONE Rx#: [id number] Sodium Chloride 0.9% 1, 400 400 000 ml @ 100 mls/hr IV . Q10H STA Rx#:[id number] Sodium Chloride 0.9% 1, 950 330 000 ml @ 110 mls/hr IV . Q9H6M GEE Rx#:[id number] Intake, IV Titration 50 Amount Piperacillin-Tazobactam 3 50 .375 gm In Dextrose/Water 1 50ml.bag @ 12.5 mls/hr IVPB ONCE ONE Rx#: [id number] Output: Urine 600 1125 390 Other: Voiding Method Diaper Indwelling Catheter Indwelling Catheter Indwelling Catheter # Voids 1 1 - Exam GENERAL EXAM: Alert, fairly comfortable in no apparent distress. HEAD: Normocephalic. EYES: Normal reaction of pupils, equal size. NOSE: Clear with pink turbinates. THROAT: No erythema or exudates. NECK: No masses, no JVD. CHEST: No chest wall deformity. LUNGS: Equal air entry with no crackles, wheeze, rhonchi or dullness. CVS: S1 and S2 normal with no audible murmurs, regular rhythm. ABDOMEN: No hepatosplenomegaly, normal bowel sounds, no guarding or rigidity. SPINE: No scoliosis or deformity SKIN: No rashes CENTRAL NERVOUS SYSTEM: No focal deficits, tone is normal in all 4 extremities. Extremities: There is no significant peripheral edema. No clubbing, no cyanosis. Peripheral pulses are intact. - Labs CBC & Chem 7: 10/05/16 04:23 10/05/16 04:23 Labs: Abnormal Lab Results - Last 24 Hours (Table) 10/04/16 10/04/1610/04/17 Range/Units 12:30 13:33 13:33 Hgb (11.4-16.0) gm/dL MCHC 30.3 L (31.0-37.0) g/dL Eosinophils # 1.6 H (0-0.7) k/uL Eosinophils # (Manual) (0-0.7) k/uL Sodium 136 L (137-145) mmol/L Potassium 5.2 H (3.5-5.1) mmol/L Carbon Dioxide 21 L (22-30) mmol/L Creatinine 0.41 L (0.52-1.04) mg/dL Glucose 131 H (74-99) mg/dL POC Glucose (mg/dL) (75-99) mg/dL AST 48 H (14-36) U/L Urine Appearance Cloudy H (Clear) Urine Protein Trace H (Negative) Urine Blood Trace H (Negative) Ur Leukocyte Esterase Large H (Negative) Urine RBC 13 H (0-5) /hpf Urine WBC >182 H (0-5) /hpf Urine WBC Clumps Few H (None) /hpf 10/04/16 10/05/16 10/05/16 Range/Units 14:14 04:23 04:23 Hgb 11.3 L (11.4-16.0) gm/dL MCHC 29.9 L (31.0-37.0) g/dL Eosinophils # (0-0.7) k/uL Eosinophils # (Manual) 1.6 H (0-0.7) k/uL Sodium 136 L (137-145) mmol/L Potassium (3.5-5.1) mmol/L Carbon Dioxide (22-30) mmol/L Creatinine 0.50 L (0.52-1.04) mg/dL Glucose 132 H (74-99) mg/dL POC Glucose (mg/dL) 122 H (75-99) mg/dL AST (14-36) U/L Urine Appearance (Clear) Urine Protein (Negative) Urine Blood (Negative) Ur Leukocyte Esterase (Negative) Urine RBC (0-5) /hpf Urine WBC (0-5) /hpf Urine WBC Clumps (None) /hpf Microbiology - Last 24 Hours (Table) 10/04/16 18:50 Urine Culture - Preliminary Urine,Catheterized Assessment and Plan Plan: Impression: #1 Abdominal pain secondary to free air in the abdomen and pelvis. There is colonic diverticulosis without clear evidence of acute diverticulitis. The ears descending into the uterine cavity and within the rectum and close apposition to air within the vaginal canal. 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 Based on the patient's cardiac history and currently on Plavix for recent stent placement and her age and other comorbidities there is no plans for surgical intervention at this time. If her condition worsens surgical services plans to attempt possible Wang's procedure. #2 Recent fall with left intracranial canter hip fracture status post repair recovering in extended care facility. #3 Coronary artery disease with previous coronary artery bypass grafting and most recently stent placement in April 2016 at [facility]. Currently on Plavix and aspirin. #4 Hypertension. #5 Diabetes mellitus #6 History of irritable bowel syndrome along with history of chronic constipation following hip repair. Plan: The patient was seen and evaluated by Dr. Kaur. She is currently stable from the pulmonary and critical care standpoint. She could be transferred out of the intensive care unit later today. The plan is for observation and no plans for surgical correction unless the patient's condition deteriorates. She remains on IV Zosyn. We'll continue with her home medications. She'll be on Lovenox for DVT prophylaxis, Protonix for GI prophylaxis. We will continue to follow and make further recommendations based on her clinical status.
--- NOTE | 2016-10-05 14:09 | P.PN ---
<Alysha Moran Radha - Last Filed: 10/05/16 13:53> Subjective 81-year-old female being seen in the intensive care unit sitting up in bed. Currently is taking ice chips tolerating. Daughter at bedside. Questions answered. Patient stating "hungry " continues to report having abdominal discomfort. Patient has not had a stool is not passing gas rectally. Patient currently is on a nasal cannula 2 L keeping a sat greater than 90. Patient currently is denying any nausea or vomiting patient is denying any shortness of breath denying any chest pain when questioning Patient's being followed by surgical service after patient was transferred from [facility] on October 04 for abdominal pain. CAT scan showed abdominal free air at [facility]. Was a concern about a colon Vaginal fistula. Patient has a known history of coronary artery disease with coronary stent placed in April 2016 has been on Plavix. Patient did have a CAT scan of the abdomen on the at [facility] which did show free intraperitoneal air with: Diverticulosis with no evidence of diverticulitis. Objective - Vital Signs Vital signs: Vital Signs Temp 98.5 F 10/05/16 12:00 Pulse 76 10/05/16 12:30 Resp 11 L 10/05/16 12:30 BP 112/59 10/05/16 12:30 Pulse Ox 95 10/05/16 12:30 Intake & Output 10/04/16 10/05/16 10/05/16 18:59 06:59 18:59 Intake Total 500 1400.0 660 Output Total 600 1125 550 Balance -100 275.0 110 Weight 69.4 kg 70 kg 70 kg Intake: IV 450 1400.0 660 Piperacillin-Tazobactam 3 50 50.0 .375 gm In Dextrose/Water 1 50ml.bag @ 12.5 mls/hr IVPB ONCE ONE Rx#: [id number] Sodium Chloride 0.9% 1, 400 400 000 ml @ 100 mls/hr IV . Q10H STA Rx#:[id number] Sodium Chloride 0.9% 1, 950 660 000 ml @ 110 mls/hr IV . Q9H6M EGE Rx#:[id number] Intake, IV Titration 50 Amount Piperacillin-Tazobactam 3 50 .375 gm In Dextrose/Water 1 50ml.bag @ 12.5 mls/hr IVPB ONCE ONE Rx#: [id number] Output: Urine 600 1125 550 Other: Voiding Method Diaper Indwelling Catheter Indwelling Catheter Indwelling Catheter # Voids 1 1 - Exam Physical exam 81-year-old female sitting up in bed pleasant cooperative oriented 3 states still has abdominal discomfort Lungs essentially clear with adequate air movement no wheezing rail rhonchi no crackles no cough noted Heart S1-S2 audible and regular monitor sinus denying chest pain Abdomen soft no palpable organomegaly. Bowel tones present no stool indwelling Millan catheter in place tolerating ice chips adequate urine output Extremities no edema noted - Labs CBC & Chem 7: 10/05/16 04:23 10/05/16 04:23 Labs: Abnormal Lab Results - Last 24 Hours (Table) 10/04/16 10/04/16 10/04/16 Range/Units 13:33 13:33 14:14 Hgb (11.4-16.0) gm/dL MCHC 30.3 L (31.0-37.0) g/dL Eosinophils # 1.6 H (0-0.7) k/uL Eosinophils # (Manual) (0-0.7) k/uL Sodium 136 L (137-145) mmol/L Potassium 5.2 H (3.5-5.1) mmol/L Carbon Dioxide 21 L (22-30) mmol/L Creatinine 0.41 L (0.52-1.04) mg/dL Glucose 131 H (74-99) mg/dL POC Glucose (mg/dL) 122 H (75-99) mg/dL AST 48 H (14-36) U/L 10/05/16 10/05/16 Range/Units 04:23 04:23 Hgb 11.3 L (11.4-16.0) gm/dL MCHC 29.9 L (31.0-37.0) g/dL Eosinophils # (0-0.7) k/uL Eosinophils # (Manual) 1.6 H (0-0.7) k/uL Sodium 136 L (137-145) mmol/L Potassium (3.5-5.1) mmol/L Carbon Dioxide (22-30) mmol/L Creatinine 0.50 L (0.52-1.04) mg/dL Glucose 132 H (74-99) mg/dL POC Glucose (mg/dL) (75-99) mg/dL AST (14-36) U/L Microbiology - Last 24 Hours (Table) 10/04/16 18:50 Urine Culture - Preliminary Urine,Catheterized Assessment and Plan Plan: Impression Present on admission persistent abdominal pain due to free air in the abdomen and pelvis CAT scan of the abdomen and pelvis this admission shows: Diverticulosis without evidence of acute diverticulitis with air within the uterus suspect fistula A recent fall resulting in the left hip fracture status post repair recuperating in an extended care facility History of coronary artery disease with prior coronary artery bypass grafting with a recent coronary stent placed in April 2016 at [facility] History of irritable bowel syndrome History of chronic constipation Hypertension Plan Pain control Continue with the IV antibiotics Zosyn as ordered IV fluids as ordered DVT and GI prophylaxis Continue with the ICU management per the recycling worker Patient continues to be at a high risk for bleeding if surgery were needed patient has been on Plavix Will continue conservative treatment and monitor's closely The above dictated assessment and findings were discussed with dr sexton Impression and the plan of care have been dictated as directed. Alysha Moran nurse practitioner acting as a scribe for dr sexton <Jose Sexton W - Last Filed: 10/05/16 17:27> Objective - Vital Signs Vital signs: Vital Signs Temp 98.5 F 10/05/16 16:00 Pulse 77 10/05/16 16:00 Resp 17 10/05/16 16:00 BP 143/70 10/05/16 16:00 Pulse Ox 94 L 10/05/16 16:00 Intake & Output 10/04/16 10/05/16 10/05/16 18:59 06:59 18:59 Intake Total 500 1400.0 770 Output Total 600 1125 700 Balance -100 275.0 70 Weight 69.4 kg 70 kg 70 kg Intake: IV 450 1400.0 770 Piperacillin-Tazobactam 3 50 50.0 .375 gm In Dextrose/Water 1 50ml.bag @ 12.5 mls/hr IVPB ONCE ONE Rx#: [id number] Sodium Chloride 0.9% 1, 400 400 000 ml @ 100 mls/hr IV . Q10H STA Rx#:[id number] Sodium Chloride 0.9% 1, 950 770 000 ml @ 110 mls/hr IV . Q9H6M GEE Rx#:[id number] Intake, IV Titration 50 Amount Piperacillin-Tazobactam 3 50 .375 gm In Dextrose/Water 1 50ml.bag @ 12.5 mls/hr IVPB ONCE ONE Rx#: [id number] Output: Urine 600 1125 700 Other: Voiding Method Diaper Indwelling Catheter Indwelling Catheter Indwelling Catheter # Voids 1 1 - Labs CBC & Chem 7: 10/05/16 04:23 10/05/16 04:23 Labs: Abnormal Lab Results - Last 24 Hours (Table) 10/05/16 10/05/16 Range/Units 04:23 04:23 Hgb 11.3 L (11.4-16.0) gm/dL MCHC 29.9 L (31.0-37.0) g/dL Eosinophils # (Manual) 1.6 H (0-0.7) k/uL Sodium 136 L (137-145) mmol/L Creatinine 0.50 L (0.52-1.04) mg/dL Glucose 132 H (74-99) mg/dL Microbiology - Last 24 Hours (Table) 10/04/16 18:50 Urine Culture - Preliminary Urine,Catheterized Assessment and Plan (1) Diabetes mellitus Status: Acute (2) History of coronary artery stent placement Status: Acute (3) Free intraperitoneal air Status: Acute Plan: Patient is clinically stable abdomen remained soft. White count remains normal. Abdominal x-ray that was repeated did not show any free air. At this time I will continue to treat this patient conservatively. Will start diet in 24 - 48 hours . Ok to transfer out of the ICU. LAURA
--- NOTE | 2016-10-05 14:58 | XR ---
EXAMINATION TYPE: XR abdomen acute w cxr DATE OF EXAM ORDERED: 10/05/2016 HISTORY: free intraperitoneal air. COMPARISON: None. FINDINGS: There has been a midline sternotomy. The heart is mildly prominent. There is scarring or a telectasis in the left midlung. Pleural spaces are clear. Within the abdomen, there is extensive calcification of the splenic artery. There are phleboliths in the pelvis. There is mild gaseous distention of the small bowel and to a lesser extent the large lisa l. There is no evidence of free air. There is evidence of a dynamic hip pinning in the left femur. IMPRESSION: 1. MILD CARDIOMEGALY. 2. NONSPECIFIC ABDOMINAL PICTURE. FOLLOW UP CLINICALLY INDICATED WOULD BE SUGGESTED. 3. POSTSURGICAL CHANGE.
--- NOTE | 2016-10-05 17:18 | P.PN ---
Progress Note - Text DATE OF SERVICE: 10/05/2016 PRESENTING COMPLAINT: Acute abdominal pain INTERVAL HISTORY: Presented with acute abdominal pain concerns for possible perforation/free air. Today, has complaints of abdominal pain however not as intense as previously. Patient remains nothing by mouth family at the bedside, patient appears ill. REVIEW OF SYSTEMS: Done for constitutional ,cardiovascular, GI, pulmonary with relevant findings as above. CURRENT MEDICATIONS , aspirin, Lipitor, Coreg, Lovenox PHYSICAL EXAM: VITAL SIGNS: Temperature 98.0, pulse 77 respiratory rate 16 blood pressure 158/ 72 oxygen 100% 2 L GENERAL APPEARANCE: Lying in bed, not in distress. EYES: Pupils equal. Conjunctiva normal. NECK: JVD not raised. Mass not palpable. RESPIRATORY: Respiratory effort normal. Lungs clear to auscultation. CARDIOVASCULAR: First and second sounds normal. No edema. ABDOMEN: Soft. tender to palpation Liver and spleen not palpable. No mass palpable. PSYCHIATRY: Alert and oriented x3. Mood and affect anxious appearing. INVESTIGATIONS: Acute abdominal series: Nonspecific abdomen Hemoglobin 11.3, sodium 136, BUN 10 creatinine 0.50 ASSESSMENT: 1.Acute abdominal pain, computed tomography scan shows some free air., Colovaginal physical fistula 2.Colonic diverticulosis 3.Moderate large hiatal hernia 4.Primary osteo-arthritis of multiple joints bilateral 5.Coronary artery disease with history of coronary artery bypass grafting last stent on 05/04/2016 at [facility] 6.Diabetes mellitus type 2 on oral hypoglycemics. 7.Hyperlipidemia. 8.Hypertensive urgency present on admission. 9.Irritable bowel syndrome 10.Peripheral neuropathy from diabetes 11.Kidney stones asymptomatic 12.Chronic insomnia 13.Medical debility patient uses a wheelchair and walker currently PLAN: Patient remains nothing by mouth except for ice chips. IV Zosyn continues, currently no plans for surgical intervention unless patient becomes acutely decompensated. We'll continue to follow closely. [employer] statement: Patient was seen and examined by nurse practitioner Letty Culver in all elements of the case discussed with attending is Dr. Wong
[2016-10-05] MEDS: ATORVASTATIN 40 MG TAB PO SCH (19:47)
[2016-10-05] MEDS: AMITRIPTYLINE HCL 50 MG TAB PO SCH (19:47)
[2016-10-06] MEDS: SODIUM CHLORIDE 0.9% 1,000 ML IV SCH ×3 (06:47→17:08)
[2016-10-06 07:35] LABS: Anion Gap 9 mmol/L; Blood Urea Nitrogen 11 mg/dL (7-17); Carbon Dioxide 24 mmol/L (22-30); Chloride 105 mmol/L (98-107); Glucose 80 mg/dL (74-99); Magnesium 1.7 mg/dL (1.6-2.3); Non-African American GFR(MDRD) >60 (>60 ml/min/1.73 sqM); Phosphorous 3.4 mg/dL (2.5-4.5); Potassium 3.6 mmol/L (3.5-5.1); Sodium 138 mmol/L (137-145)
--- NOTE | 2016-10-06 07:35 | ECHOF ---
Referral Reason:chf MEASUREMENTS -------- HEIGHT: 170.2 cm WEIGHT: 69.9 kg BP: 140/66 RVIDd: 3.0 cm (< 3.3) IVSd: 1.3 cm (0.6 - 1.1) LVIDd: 3.9 cm (3.9 - 5.3) LVPWd: 1.2 cm (0.6 - 1.1) IVSs: 1.9 cm LVIDs: 3.5 cm LVPWs: 1.6 cm LA Diam: 3.5 cm (2.7 - 3.8) LAESV Index (A-L): 32.12 ml/m Ao Diam: 3.2 cm (2.0 - 3.7) AV Cusp: 2.1 cm (1.5 - 2.6) MV EXCURSION: 13.015 mm (> 18.000) MV EF SLOPE: 55 mm/s (70 - 150) EPSS: 0.7 cm MV E Romario: 0.51 m/s MV DecT: 430 ms MV A Romario: 0.79 m/s MV E/A Ratio: 0.64 AR PHT: 552 ms RAP: 5.00 mmHg RVSP: 21.01 mmHg FINDINGS -------- Sinus rhythm. This was a technically adequate study. The left ventricular size is normal. There is borderline concentric left ventricular hypertrophy. Overall left ventricular systolic function is low-normal with, an EF between 50 - 55 %. The right ventricle is normal in size and function. LA is midly dilated 29-33ml/m2. The right atrium is normal in size. Mobile interatrial septum. There is mild aortic valve sclerosis. There is mild aortic regurgitation. Mild mitral annular calcification present. Mild mitral regurgitation is present. Mild tricuspid regurgitation present. Right ventricular systolic pressure is normal at < 35 mmHg. Trace/mild (physiologic) pulmonic regurgitation. The aortic root size is normal. IVC Not well visulized. The pericardium is normal. CONCLUSIONS -------- 1. Sinus rhythm. 2. There is mild aortic valve sclerosis. 3. There is mild aortic regurgitation. 4. Mild mitral annular calcification present. 5. Mild mitral regurgitation is present. 6. Mild tricuspid regurgitation present. 7. Right ventricular systolic pressure is normal at < 35 mmHg. 8. Trace/mild (physiologic) pulmonic regurgitation. 9. The aortic root size is normal. 10. IVC Not well visulized. 11. The pericardium is normal. 12. This was a technically adequate study. 13. The left ventricular size is normal. 14. There is borderline concentric left ventricular hypertrophy. 15. Overall left ventricular systolic function is low-normal with, an EF between 50 - 55 %. 16. The right ventricle is normal in size and function. 17. LA is midly dilated 29-33ml/m2. 18. The right atrium is normal in size. 19. Mobile interatrial septum. ROTARY CUTTER OPERATOR: Mayra Preciado RDCS
[2016-10-06] MEDS: ENOXAPARIN 40 MG/0.4 ML SYRINGE SQ SCH (07:54)
[2016-10-06] MEDS: TRIAMCINOLONE 0.1% CREAM 80 GM TUBE TOPICAL SCH ×2 (07:55→20:44)
[2016-10-06] MEDS: PANTOPRAZOLE 40 MG/10 ML VIAL IV SCH (07:55)
[2016-10-06] MEDS: ONDANSETRON 4 MG/2 ML VIAL IVP PRN (07:55)
[2016-10-06] MEDS: ASPIRIN 81 MG CHEW PO SCH ×2 (07:56→12:26)
[2016-10-06] MEDS: CARVEDILOL 3.125 MG TAB PO SCH ×2 (07:56→17:18)
[2016-10-06] MEDS: ISOSORBIDE MONONITRATE ER 30 MG TAB.ER.24H PO SCH (07:56)
[2016-10-06] MEDS: CITALOPRAM HYDROBROMIDE 20 MG TAB PO SCH (07:56)
[2016-10-06] MEDS: LOSARTAN 25 MG TAB PO SCH (07:57)
[2016-10-06] MEDS: PIPERACILLIN-TAZOBACTAM 3.375 GM in DEXTROSE/WATER 1 50ML.BAG IVPB SCH ×2 (08:38→17:09)
[2016-10-06 08:47] LABS: Basophils # (A) 0.1 k/uL (0-0.2); Basophils % (A) 1 %; CH 26.5; CHCM 30.2; Eosinophils # (A) 2.6 k/uL (0-0.7); Eosinophils % (A) 28 %; HCT 34.6 % (34.0-46.0); HDW 2.74; HGB 10.9 gm/dL (11.4-16.0); Hypochromasia Marked; Luc % (Auto) 2; Lymphocytes # (A) 3.3 k/uL (1.0-4.8); Lymphocytes % (A) 36 %; MCH 27.7 pg (25.0-35.0); MCHC 31.6 g/dL (31.0-37.0); MCV 87.7 fL (80.0-100.0); Monocytes # (A) 0.6 k/uL (0-1.0); Monocytes % (A) 6 %; Neutrophils # (A) 2.5 k/uL (1.3-7.7); Neutrophils % (A) 27 %; RBC 3.94 m/uL (3.80-5.40); RDW 15.3 % (11.5-15.5); WBC 9.2 k/uL (3.8-10.6); WBC (Perox) 8.61
--- NOTE | 2016-10-06 09:11 | XR ---
EXAMINATION TYPE: XR abdomen acute w cxr DATE OF EXAM: 10/06/2016 CLINICAL HISTORY: Abdominal pain, history of irritable bowel syndrome. TECHNIQUE: Single frontal view of chest is obtained. Supine and upright views of the abdomen are acq uired. COMPARISON: Chest x-ray with acute abdominal series from yesterday. Outside CT from 2 days earlier. FINDINGS: There is chronic parenchymal change without suspicious focal airspace opacity, pleural effu hayden, or pneumothorax seen bilaterally. Sternal wires are redemonstrated. Cardiac silhouette size re pelon within normal limits with ectatic and atherosclerotic thoracic aorta. High riding right humeral head suggests chronic rotator cuff tear. Slightly elevated left hemidiaphragm is redemonstrated. Gas is noted in nondistended small bowel loops. Gas and fecal material is seen in nondistended colon . Vascular calcification and phleboliths overlie the pelvis. Additional bulge vascular calcification of the aortobiiliac branches is present in the lower abdomen. Multilevel spurring in the spine. There is disc space narrowing and vacuum disc phenomenon in lower lumbar levels. Cholecystectomy clips are present. There is partial visualization of surgical change left proximal femur. IMPRESSION: 1. No acute pulmonary process. 2. Overall nonspecific but likely nonobstructive bowel gas pattern. No significant change from prior study.
[2016-10-06 09:51] LABS: Polychromasia Present
--- NOTE | 2016-10-06 10:55 | P.PN ---
Subjective Principal diagnosis: Free air under the diaphragm Overall the patient is feeling well she is complaining of minimal amount of pelvic pain. There is no nausea no vomiting. The patient is feeling hungry. She's not had a bowel movement and is not sure about passing gas. Her pain is improved since her admission. Objective - Vital Signs Vital signs: Vital Signs Temp 97.8 F 10/05/16 20:40 Pulse 78 10/06/16 00:00 Resp 16 10/06/16 00:00 BP 140/69 10/05/16 20:40 Pulse Ox 97 10/05/16 20:40 Intake & Output 10/05/16 10/06/16 10/06/16 18:59 06:59 18:59 Intake Total 770 400 Output Total 700 Balance 70 400 Weight 70 kg Intake: IV 770 400 Sodium Chloride 0.9% 1, 770 400 000 ml @ 110 mls/hr IV . Q9H6M [facility] Rx#:[id number] Output: Urine 700 Other: Voiding Method Indwelling Catheter # Voids 1 - Constitutional General appearance: Present: average body habitus, cooperative - EENT Eyes: Present: PERRLA - Gastrointestinal Gastrointestinal Comment(s): Patient's abdomen is completely soft nontender nondistended without any peritoneal signs or guarding. On distraction deep palpation is not painful General gastrointestinal: Present: scaphoid, soft - Labs CBC & Chem 7: 10/06/16 07:02 10/06/16 07:02 Labs: Abnormal Lab Results - Last 24 Hours (Table) 10/06/16 10/06/16 Range/Units 07:02 07:02 Hgb 10.9 L (11.4-16.0) gm/dL Eosinophils # 2.6 H (0-0.7) k/uL Creatinine 0.49 L (0.52-1.04) mg/dL Assessment and Plan (1) Diabetes mellitus Status: Acute (2) History of coronary artery stent placement Status: Acute (3) Free intraperitoneal air Status: Acute Plan: From my standpoint the patient is doing very well and will continue to be may manage the patient conservatively. I will treat as like a microperforation which has sealed off by itself. We'll continue IV antibiotics. I will start her off on clear liquids today. Further recommendations to follow no x-rays will be done tomorrow unless the patient's symptoms change no labs she'll be repeated since the patient has been stable for the past 48 hours.
[2016-10-06] MEDS: MORPHINE SULFATE 4 MG/ML SYRINGE IV PRN ×2 (12:27→20:53)
--- NOTE | 2016-10-06 13:18 | P.PN ---
Subjective This is a very pleasant 81-year-old female patient who follows with Dr. Spears as her primary care physician. She has a history of diabetes mellitus, hypertension, coronary artery disease with previous coronary artery bypass grafting. Most recently she had some cardiac stent placements in April 2016 at [facility]. She had been in inpatient rehabilitation where she fell and broke her hip a few weeks ago and remained in an extended care facility in [place]. 2-3 days ago she developed abdominal discomfort and presented to [facility] today for the same. A computed tomography scan revealed abdominal free air and she was transferred here to our emergency room. 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 She had been seen and evaluated by Dr. Ann for possible surgical repair however after his discussion with the patient and family who continue with conservative treatment. The patient remains on Plavix for her stent placement in April 2016. Computed tomography scan of the abdomen here does reveal free intraperitoneal air with colonic diverticulosis without clear evidence of acute diverticulitis. There is additional prominent air distending the uterine cavity and air within the rectum and close apposition to air within the vaginal canal. Suspect fistula. There is moderate to large hiatal hernia. She is seen currently in the intensive care unit. She is awake and alert in no acute distress. She does continue with abdominal discomfort but is not guarding or complaining of significant pain. No other complaints. No chest pain, no shortness of breath. No fever chills or night sweats. She does have fatigue. She has no leukocytosis. Hemoglobin stable at 12.0. Sodium 136 potassium 5.2 carbon dioxide 21 creatinine 0.41. Urinalysis has large amount of leukocytes, greater than 182 WBCs. She is maintaining good O2 saturations in the high 90s on 2 L/m per nasal cannula. She's been afebrile. Hemodynamically stable. The patient is seen again today 10/05/2016 in follow-up in the intensive care unit. She remains awake and alert in no acute distress. She does have ongoing complaints of abdominal discomfort. She remains afebrile. No leukocytosis. She is maintaining good O2 saturations in the 90s on 2 L/m per nasal cannula. She denies any shortness of breath, cough or congestion. Hemoglobin stable. Hemodynamically stable. The patient is seen again today 10/06/2016 on the regular medical floor. She remains awake and alert in no acute distress. She is not having many complaints of abdominal discomfort. She is seen by surgical services who feels there was a micro-perforation that has self sealed and there are no plans for intervention at this time. She remains on Zosyn. She is maintaining good O2 saturations in the 90s on room air. She somewhat hypertensive. Afebrile. Objective - Vital Signs Vital signs: Vital Signs Temp 97.6 F 10/06/16 07:00 Pulse 84 10/06/16 07:00 Resp 16 10/06/16 07:00 BP 176/79 10/06/16 07:00 Pulse Ox 93 L 10/06/16 07:00 Intake & Output 10/05/16 10/06/16 10/06/16 18:59 06:59 18:59 Intake Total 770 400 Output Total 700 Balance 70 400 Weight 70 kg Intake: IV 770 400 Sodium Chloride 0.9% 1, 770 400 000 ml @ 110 mls/hr IV . Q9H6M [facility] Rx#:[id number] Output: Urine 700 Other: Voiding Method Indwelling Catheter # Voids 1 - Exam GENERAL EXAM: Alert, fairly comfortable in no apparent distress. HEAD: Normocephalic. EYES: Normal reaction of pupils, equal size. NOSE: Clear with pink turbinates. THROAT: No erythema or exudates. NECK: No masses, no JVD. CHEST: No chest wall deformity. LUNGS: Equal air entry with no crackles, wheeze, rhonchi or dullness. CVS: S1 and S2 normal with no audible murmurs, regular rhythm. ABDOMEN: No hepatosplenomegaly, normal bowel sounds, no guarding or rigidity. SPINE: No scoliosis or deformity SKIN: No rashes CENTRAL NERVOUS SYSTEM: No focal deficits, tone is normal in all 4 extremities. Extremities: There is no significant peripheral edema. No clubbing, no cyanosis. Peripheral pulses are intact. - Labs CBC & Chem 7: 10/06/16 07:02 10/06/16 07:02 Labs: Abnormal Lab Results - Last 24 Hours (Table) 10/06/16 10/06/16 Range/Units 07:02 07:02 Hgb 10.9 L (11.4-16.0) gm/dL Eosinophils # 2.6 H (0-0.7) k/uL Creatinine 0.49 L (0.52-1.04) mg/dL Assessment and Plan Plan: Impression: #1 Abdominal pain secondary to free air in the abdomen and pelvis. There is colonic diverticulosis without clear evidence of acute diverticulitis. The ears descending into the uterine cavity and within the rectum and close apposition to air within the vaginal canal. 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 Based on the patient's cardiac history and currently on Plavix for recent stent placement and her age and other comorbidities there is no plans for surgical intervention at this time. If her condition worsens surgical services plans to attempt possible Wang's procedure. #2 Recent fall with left hip fracture status post repair recovering in extended care facility. #3 Coronary artery disease with previous coronary artery bypass grafting and most recently stent placement in April 2016 at [facility]. Currently on Plavix and aspirin. #4 Hypertension. #5 Diabetes mellitus #6 History of irritable bowel syndrome along with history of chronic constipation following hip repair. Plan: The patient was seen and evaluated by Dr. Kaur. There are no plans for surgical intervention. Surgical services feels this is a microperforation that has self sealed. She remains stable. She'll be on Lovenox for DVT prophylaxis, Protonix for GI prophylaxis. We will continue to follow and make further recommendations based on her clinical status.
--- NOTE | 2016-10-06 17:42 | PN ---
DATE OF SERVICE: 10/05/2016 ATTENDING NOTE: This patient was seen and examined by me on 10/05/16. I reviewed the note of my nurse practitioner, Ms. Culver. Discussed. Additional findings below. This is a patient who presents with what appears to be a colovaginal fistula, per Surgery to be managed conservatively. Occasionally getting abdominal pain. Patient is on ice chips. Daughter is at the bedside. Otherwise patient appears to be comfortable. On examination, lying in bed. ABDOMEN: Soft. Minimal tenderness. Bowel sounds are present. PSYCH: Awake. Answering simple questions. CARDIOVASCULAR: First and second sounds normal. ASSESSMENT: Possible colovaginal fistula, currently being managed conservatively with antibiotics per Surgery. PLAN: Care was discussed with the daughter and the patient. Did say they will follow with Surgery. Prognosis guarded.
--- NOTE | 2016-10-06 18:55 | P.PN ---
Progress Note - Text DATE OF SERVICE: 10/06/2016 PRESENTING COMPLAINT: Acute abdominal pain INTERVAL HISTORY: Presented with acute abdominal pain concerns for possible perforation/free air. Today, has complaints of abdominal pain however not as intense as previously. Diet advanced to liquids, patient tolerates this well. No nausea, vomiting. Looks better today. REVIEW OF SYSTEMS: Done for constitutional ,cardiovascular, GI, pulmonary with relevant findings as above. CURRENT MEDICATIONS Ativan, aspirin, Lipitor, Coreg, Lovenox, Zosyn PHYSICAL EXAM: VITAL SIGNS: Temperature 97.6, pulse 84, respirations 18, blood pressure 176/79, oxygen saturation 93% on room air. GENERAL APPEARANCE: Sitting in bed, comfortable. EYES: Pupils equal. Conjunctiva normal. NECK: JVD unable to assess. Mass not palpable. RESPIRATORY: Respiratory effort normal. Lungs clear to auscultation. CARDIOVASCULAR: First and second sounds normal. No edema. ABDOMEN: Soft. minimally tender to palpation Liver and spleen not palpable. No mass palpable. PSYCHIATRY: Alert and oriented x3. Mood and affect anxious appearing. INVESTIGATIONS: Hemoglobin 10.9, sodium 138 potassium 3.6 creatinine 0.49 Acute abdominal series: Nonspecific abdomen. ASSESSMENT: 1.Acute abdominal pain, computed tomography scan shows some free air, possible colovaginal fistula versus microperforation. 2.Colonic diverticulosis without evidence for acute diverticulitis 3.Moderate large hiatal hernia, stable. 4.Primary osteo-arthritis of multiple joints bilateral 5.Coronary artery disease with history of coronary artery bypass grafting [facility] stent on 05/04/[facility] 6.Diabetes mellitus type 2 on oral hypoglycemics, chronically. 7.Hyperlipidemia. 8.Hypertensive urgency present on admission, uncontrolled 9.Irritable bowel syndrome, controlled 10.Peripheral neuropathy from diabetes 11.Kidney stones asymptomatic 12.Chronic insomnia 13.Medical debility patient uses a wheelchair and walker currently 14. Depression/anxiety not otherwise specified. PLAN: Diet advanced by surgery today, continue IV Zosyn. Dr. Ann we'll treat this as a microperforation which is sealed off by itself, and continue with conservative surgical management. We'll continue to follow closely. EGG SMELLER statement: Patient was seen and examined by nurse practitioner Letty Culver in all elements of the case discussed with attending is Dr. Wong
[2016-10-06] MEDS: AMITRIPTYLINE HCL 50 MG TAB PO SCH (20:44)
[2016-10-06] MEDS: ATORVASTATIN 40 MG TAB PO SCH (20:44)
[2016-10-07] MEDS: PIPERACILLIN-TAZOBACTAM 3.375 GM in DEXTROSE/WATER 1 50ML.BAG IVPB SCH ×2 (01:09→07:36)
[2016-10-07] MEDS: MORPHINE SULFATE 4 MG/ML SYRINGE IV PRN ×2 (05:19→20:17)
[2016-10-07] MEDS: SODIUM CHLORIDE 0.9% 1,000 ML IV SCH ×4 (07:32→22:19)
[2016-10-07] MEDS: ENOXAPARIN 40 MG/0.4 ML SYRINGE SQ SCH (07:41)
[2016-10-07] MEDS: CITALOPRAM HYDROBROMIDE 20 MG TAB PO SCH (07:41)
[2016-10-07] MEDS: LOSARTAN 25 MG TAB PO SCH (07:41)
[2016-10-07] MEDS: CARVEDILOL 3.125 MG TAB PO SCH ×2 (07:41→17:41)
[2016-10-07] MEDS: ISOSORBIDE MONONITRATE ER 30 MG TAB.ER.24H PO SCH (07:41)
[2016-10-07] MEDS: ASPIRIN 81 MG CHEW PO SCH (07:42)
[2016-10-07] MEDS: PANTOPRAZOLE 40 MG/10 ML VIAL IV SCH (07:42)
[2016-10-07] MEDS: TRIAMCINOLONE 0.1% CREAM 80 GM TUBE TOPICAL SCH ×2 (07:52→20:18)
[2016-10-07 08:12] LABS: Anion Gap 6 mmol/L; Blood Urea Nitrogen 6 mg/dL (7-17); Calcium 8.7 mg/dL (8.4-10.2); Carbon Dioxide 26 mmol/L (22-30); Chloride 106 mmol/L (98-107); Glucose 139 mg/dL (74-99); Magnesium 1.4 mg/dL (1.6-2.3); Non-African American GFR(MDRD) >60 (>60 ml/min/1.73 sqM); Phosphorous 2.6 mg/dL (2.5-4.5); Potassium 3.1 mmol/L (3.5-5.1); Sodium 138 mmol/L (137-145)
[2016-10-07] MEDS: DAPTOmycin 500 MG in SODIUM CHLORIDE 0.9% 50 ML IV SCH (11:08)
--- NOTE | 2016-10-07 11:32 | PN ---
DATE OF SERVICE: 10/06/2016 ATTENDING NOTE: This patient was seen and examined by me earlier today. Reviewed the note of my nurse practitioner, Ms. Culver. Additional findings below. This patient with abdominal pain. Reddick to have either a colovaginal fistula or a localized perforation as per Dr. Ann. Abdominal pain is better. IV pain medication has been taken out. Patient diet has been advanced. Patient did get up to the chair. As per the nursing, did take a few steps. On examination: ABDOMEN: Minimal tenderness. Soft. CARDIOVASCULAR: First and second sounds normal. ASSESSMENT: Acute abdominal pain on presentation, likely from colovaginal fistula versus microperforation per surgery. PLAN: I told the nurse to get the patient out more. Continue the IV antibiotics. Diet will be advanced per surgery. Care was discussed with the patient.
[2016-10-07] MEDS ORDERED: POTASSIUM CHLORIDE ER 20 MEQ TAB.ER PO STA (13:00)
--- NOTE | 2016-10-07 13:20 | P.PN ---
Subjective Principal diagnosis: Free air under the diaphragm Overall the patient is feeling well she is complaining of minimal amount of pelvic pain. There is no nausea no vomiting. The patient is feeling hungry. She's not had a bowel movement and has started passing gas. Objective - Vital Signs Vital signs: Vital Signs Temp 98 F 10/07/16 07:00 Pulse 77 10/07/16 07:00 Resp 16 10/07/16 07:00 BP 156/73 10/07/16 07:00 Pulse Ox 97 10/07/16 09:28 Intake & Output 10/06/16 10/07/16 10/07/16 18:59 06:59 18:59 Intake Total 890 930 Balance 890 930 Intake: IV 840 880 Sodium Chloride 0.9% 1, 840 880 000 ml @ 110 mls/hr IV . Q9H6M [facility] Rx#:[id number] Intake, IV Titration 50 50 Amount Piperacillin-Tazobactam 3 50 50 .375 gm In Dextrose/Water 1 50ml.bag @ 12.5 mls/hr IVPB Q8HR [facility] Rx#: [id number] Other: Voiding Method Bedside Commode Bedside Commode Toilet # Voids 4 1 - Constitutional General appearance: Present: cooperative - EENT Eyes: Present: PERRLA - Gastrointestinal Gastrointestinal Comment(s): Abdomen remained soft and nontender without any peritoneal signs. There is minimal amount of tenderness on very deep palpation - Labs CBC & Chem 7: 10/06/16 07:02 10/07/16 06:59 Labs: Abnormal Lab Results - Last 24 Hours (Table) 10/07/16 Range/Units 06:59 Potassium 3.1 L (3.5-5.1) mmol/L BUN 6 L (7-17) mg/dL Creatinine 0.40 L (0.52-1.04) mg/dL Glucose 139 H (74-99) mg/dL Magnesium 1.4 L (1.6-2.3) mg/dL Microbiology - Last 24 Hours (Table) 10/04/16 18:50 Urine Culture - Final Urine,Catheterized Enterococcus faecium VRE Assessment and Plan (1) Diabetes mellitus Status: Acute (2) History of coronary artery stent placement Status: Acute (3) Free intraperitoneal air Status: Acute Plan: From my standpoint the patient is doing very well and will continue to be may manage the patient conservatively. Patient that he be advanced today. As long as she tolerates a diet she will be discharged within the next 24-48 hours to follow-up as an outpatient for colonoscopy
--- NOTE | 2016-10-07 16:35 | P.PN ---
Progress Note - Text DATE OF SERVICE: 10/07/2016 PRESENTING COMPLAINT: Acute abdominal pain INTERVAL HISTORY: Presented with acute abdominal pain concerns for possible perforation/free air. Today, has fewer complaints of abdominal pain however not as intense as before. Diet advanced to liquids, patient tolerates this well. No nausea, vomiting. Had a BM today. Looks better today. States "I just want to feel better." REVIEW OF SYSTEMS: Done for constitutional ,cardiovascular, GI, pulmonary with relevant findings as above. CURRENT MEDICATIONS Ativan, aspirin, Lipitor, Coreg, Lovenox, Zosyn PHYSICAL EXAM: VITAL SIGNS: Temperature 98.0, pulse 77, respiratory rate 18, blood pressure 156/73, oxygen saturation 97% on room air GENERAL APPEARANCE: Sitting in bed, anxious appearing. EYES: Pupils equal. Conjunctiva normal. NECK: JVD unable to assess. Mass not palpable. RESPIRATORY: Respiratory effort normal. Lungs clear to auscultation. CARDIOVASCULAR: First and second sounds normal. No edema. ABDOMEN: Soft. minimally tender to palpation Liver and spleen not palpable. No mass palpable. PSYCHIATRY: Alert and oriented x3. Mood and affect anxious appearing. INVESTIGATIONS: Potassium 3.1 BUN 6, creatinine 0.40. Urine culture positive for enterococcus faecium VRE, ASSESSMENT: 1.Acute abdominal pain, computed tomography scan shows some free air, possible colovaginal fistula versus microperforation. 2.Colonic diverticulosis without evidence for acute diverticulitis 3.Moderate large hiatal hernia, stable. 4.Primary osteo-arthritis of multiple joints bilateral 5.Coronary artery disease with history of coronary artery bypass grafting last stent on 05/04/2016 at [facility] 6.Diabetes mellitus type 2 on oral hypoglycemics, chronically. 7.Hyperlipidemia. 8.Hypertensive urgency present on admission, uncontrolled 9.Irritable bowel syndrome, controlled 10.Peripheral neuropathy from diabetes 11.Kidney stones asymptomatic 12.Chronic insomnia 13.Medical debility patient uses a wheelchair and walker currently 14. Depression/anxiety not otherwise specified. 15. Acute Urinary tract infection, organism enterococcus faecium VRE, started on daptomycin. PLAN: Diet advanced to soft by surgery today, continue IV Zosyn and daptomycin for UTI. Dr. Ann is treating this as a microperforation which is sealed off by itself, and continue with conservative surgical management. We'll continue to follow closely. SEBD TEACHER statement: Patient was seen and examined by nurse practitioner Letty Culver in all elements of the case discussed with attending is Dr. Wong
[2016-10-07] MEDS: ATORVASTATIN 40 MG TAB PO SCH (20:17)
[2016-10-07] MEDS: AMITRIPTYLINE HCL 50 MG TAB PO SCH (20:17)
[2016-10-08] MEDS: SODIUM CHLORIDE 0.9% 1,000 ML IV SCH ×2 (06:52→18:00)
[2016-10-08 08:00] LABS: Basophils # (A) 0.1 k/uL (0-0.2); Basophils % (A) 1 %; CH 26.8; CHCM 29.9; Eosinophils # (A) 2.2 k/uL (0-0.7); Eosinophils % (A) 23 %; HCT 38.7 % (34.0-46.0); HDW 2.69; HGB 11.7 gm/dL (11.4-16.0); Hypochromasia Marked; Luc # (Auto) 0.14; Luc % (Auto) 2; Lymphocytes # (A) 3.2 k/uL (1.0-4.8); Lymphocytes % (A) 34 %; MCH 27.2 pg (25.0-35.0); MCHC 30.3 g/dL (31.0-37.0); MCV 89.6 fL (80.0-100.0); Mean Platelet Volume 6.6; Monocytes # (A) 0.5 k/uL (0-1.0); Monocytes % (A) 6 %; Neutrophils # (A) 3.3 k/uL (1.3-7.7); Neutrophils % (A) 35 %; RBC 4.32 m/uL (3.80-5.40); RDW 15.4 % (11.5-15.5); WBC 9.3 k/uL (3.8-10.6); WBC (Perox) 9.93
[2016-10-08 08:17] LABS: Anion Gap 8 mmol/L; Blood Urea Nitrogen <2 mg/dL (7-17); Calcium 8.7 mg/dL (8.4-10.2); Carbon Dioxide 25 mmol/L (22-30); Chloride 106 mmol/L (98-107); Glucose 156 mg/dL (74-99); Non-African American GFR(MDRD) >60 (>60 ml/min/1.73 sqM); Potassium 3.1 mmol/L (3.5-5.1); Sodium 139 mmol/L (137-145)
[2016-10-08] MEDS: CARVEDILOL 3.125 MG TAB PO SCH ×2 (08:32→17:47)
[2016-10-08] MEDS: ASPIRIN 81 MG CHEW PO SCH (08:33)
[2016-10-08] MEDS: CITALOPRAM HYDROBROMIDE 20 MG TAB PO SCH (08:33)
[2016-10-08] MEDS: ENOXAPARIN 40 MG/0.4 ML SYRINGE SQ SCH (08:33)
[2016-10-08] MEDS: LOSARTAN 25 MG TAB PO SCH (08:35)
[2016-10-08] MEDS: PANTOPRAZOLE 40 MG/10 ML VIAL IV SCH (08:35)
[2016-10-08] MEDS: TRIAMCINOLONE 0.1% CREAM 80 GM TUBE TOPICAL SCH ×2 (08:36→20:19)
[2016-10-08] MEDS: MORPHINE SULFATE 4 MG/ML SYRINGE IV PRN ×2 (08:36→21:27)
[2016-10-08] MEDS ORDERED: RX INFO: IV CONTRAST WAS GIVEN 1 EACH MISC MISCELLANE PRN (09:02)
[2016-10-08 09:06] LABS: Manual Review Performed
[2016-10-08] MEDS: IOHEXOL 350 MG/ML 25 ML BOTTLE (ORAL USE) PO PRN ×2 (09:26→10:19)
[2016-10-08] MEDS: ISOSORBIDE MONONITRATE ER 30 MG TAB.ER.24H PO SCH (09:27)
[2016-10-08] MEDS: POTASSIUM CHLORIDE ER 20 MEQ TAB.ER PO SCH ×2 (09:28→11:34)
--- NOTE | 2016-10-08 11:19 | PN ---
DATE OF SERVICE: 10/07/2016 ATTENDING NOTE: This patient was seen and examined by me. Admitted with possibly microperforation. Not for surgery per surgeon. Tolerating some diet. Had a bowel movement. On examination, afebrile. ABDOMEN: Minimal tenderness. Soft, positive bowel sounds. PSYCH: Awake, answering questions. ASSESSMENT: 1. Acute abdominal pain from microperforation on antibiotics. 2. Acute urinary tract infection with vancomycin-resistant enterococcus on daptomycin. PLAN: Continue current medication and treatment plan. Diet has been advanced per Surgery. Antibiotics to continue. Care was discussed with the patient.
[2016-10-08] MEDS ORDERED: POTASSIUM CHLORIDE ORAL LIQUID 40 MEQ/30 ML CUP PO ONE (11:30)
--- NOTE | 2016-10-08 11:35 | P.PN ---
Subjective 81-year-old female seen and examined reportedly experiencing abdominal pain which according to the patient has persist there's been no change "" patient states that she has had a bowel movement. Patient reports of nausea no vomiting patients being followed by surgical service for free intra-peritoneal air noted on a CAT scan of the abdomen and pelvis. Patient currently is resting in bed does not appear in any acute distress. Nursing reports this been no document stooling Objective - Vital Signs Vital signs: Vital Signs Temp 98.4 F 10/08/16 07:00 Pulse 97 10/08/16 08:00 Resp 18 10/08/16 08:00 BP 164/84 10/08/16 07:00 Pulse Ox 97 10/08/16 07:00 Intake & Output 10/07/16 10/08/16 10/08/16 18:59 06:59 18:59 Intake Total 1005 1600 Balance 1005 1600 Intake: IV 880 1240 Sodium Chloride 0.9% 1, 880 1240 000 ml @ 110 mls/hr IV . Q9H6M [facility] Rx#:[id number] Intake, IV Titration 125 Amount DAPTOmycin 500 mg In 100 Sodium Chloride 0.9% 50 ml @ 100 mls/hr IV Q24H [facility] Rx#:[id number] Piperacillin-Tazobactam 3 25 .375 gm In Dextrose/Water 1 50ml.bag @ 12.5 mls/hr IVPB Q8HR [facility] Rx#: [id number] Oral 360 Other: Voiding Method Toilet Toilet Toilet # Voids 3 1 - Exam Physical exam 81-year-old female resting in bed does not appear in any acute distress oriented 3 Lungs essentially clear adequate air movement no cough noted no shortness of breath at rest or conversation Heart S1-S2 audible regular no murmur Abdomen soft not able to elicit any facial grimacing with palpitation to the abdominal wall bowel tones present no palpable organomegaly patient states had a bowel movement this morning patient states tolerating a diet the patient continues to report "the abdominal pain feels the same as it did when he came into the hospital no improvement Extremities no edema noted - Labs CBC & Chem 7: 10/08/16 07:45 10/08/16 07:45 Labs: Abnormal Lab Results - Last 24 Hours (Table) 10/08/16 10/08/16 Range/Units 07:45 07:45 MCHC 30.3 L (31.0-37.0) g/dL Eosinophils # 2.2 H (0-0.7) k/uL Potassium 3.1 L (3.5-5.1) mmol/L BUN <2 L (7-17) mg/dL Creatinine 0.34 L (0.52-1.04) mg/dL Glucose 156 H (74-99) mg/dL Assessment and Plan Plan: Impression Present on admission persistent abdominal pain due to free air in the abdomen and pelvis CAT scan of the abdomen and pelvis this admission shows: Diverticulosis without evidence of acute diverticulitis with air within the uterus suspect fistula A recent fall resulting in the left hip fracture status post repair recuperating in an extended care facility History of coronary artery disease with prior coronary artery bypass grafting with a recent coronary stent placed in April 2016 at [facility] History of irritable bowel syndrome History of chronic constipation Hypertension Type 2 diabetes on oral hypoglycemic controlled Chronic diverticulosis as evident on a CAT scan of the abdomen pelvis with no evidence of acute diverticulitis Hyperlipidemia History of irritable bowel syndrome controlled Depressive anxiety disorder nonspecified Present on admission a urinary tract infection urine culture VRE, enteroccus Plan Pain control Continue with the IV antibiotics daptomycin IV fluids as ordered DVT and GI prophylaxis Repeat CAT scan abdomen and pelvis with contrast follow up on results Patient continues to be at a high risk for bleeding if surgery were needed patient has been on Plavix Will continue conservative treatment and monitor's closely The above dictated assessment and findings were discussed with dr sexton Impression and the plan of care have been dictated as directed. Alysha Moran nurse practitioner acting as a scribe for dr sexton
[2016-10-08] MEDS: DAPTOmycin 500 MG in SODIUM CHLORIDE 0.9% 50 ML IV SCH (12:02)
--- NOTE | 2016-10-08 12:11 | CT ---
EXAMINATION TYPE: CT abdomen pelvis wo/w con DATE OF EXAM: 10/08/2016 COMPARISON: 10/04/2016 INDICATION: Patient complains of generalized abdominal pain, nausea, and constipation. DLP: 2199 mGycm, Automated exposure control for dose reduction was used. CONTRAST: 100 mL of Omnipaque 300. Study performed with Oral Contrast TECHNIQUE: Axial images were obtained from above the diaphragm to the pubic rami in the axial plane a t 5 mm thick sections. Reconstructed images are reviewed on the computer in the coronal plane. FINDINGS: Limited CT sections are obtained the lung bases. Small right and minimal left pleural effusions are present. A moderate size hiatal hernia is present.. CT ABDOMEN: Free air is within the abdomen. This was present on the 10/04/2016 exam. This is probably w ithin the epigastric region adjacent to the liver. This may be slightly increasing from comparison. Liver: Normal Spleen: Calcified granuloma are present. Splenic artery aneurysms at the splenic hilum may be present . Pancreas: Normal Adrenal glands: The adrenal glands are normal. Gallbladder: Surgically absent Kidneys: No masses are evident. No hydronephrosis is present. There is an exophytic cyst measuring 3.2 cm and 3 Hounsfield units on the posterior superior pole right kidney calcification may be within the posterior lateral mid right kidney. This was present previously Aorta: Vascular calcification is within the aorta. Inferior vena cava: Normal. CT PELVIS: Loops of bowel within the abdomen and pelvis are normal. There are loops of bowel which are incom pletely distended or lack oral contrast limiting their evaluation. Oral contrast extends to the dista l small bowel loops in the left lower quadrant. Appendix: Not clearly identified. No suspicious inflammatory changes are evident. Urinary bladder: Normal. Genitourinary structures: Uterus appears to contain a large air-filled endometrial canal. Perirectal air is not identified on the current exam. Osseous structures: There appear to be changes of the fracture at the left intertrochanteric region. Hip pin and medullary kristy are evident. Facet changes are within the lower lumbar spine. Spondylosis i s present. IMPRESSIONS: 1. Intra-abdominal free air within the upper abdomen may be slightly increasing in volume over the i nterval 10/04/2016. 2. Hiatal hernia. 3. Small bilateral pleural effusions. 4. Right renal cysts and calcification. 5. Appears to be air within the endometrial canal of the uterus.
[2016-10-08] MEDS ORDERED: POLYETHYLENE GLYCOL 3350 17 GM POWD.PACK PO STA (13:07)
--- NOTE | 2016-10-08 19:03 | P.PN ---
Progress Note - Text DATE OF SERVICE: 10/08/2016 PRESENTING COMPLAINT: Acute abdominal pain INTERVAL HISTORY: Presented with acute abdominal pain concerns for possible perforation/free air. Today, has more complaints of abdominal pain surgery in order a computed tomography scan Diet changed to nothing by mouth, l. No nausea, vomiting. Had a BM today. Looks anxious today. REVIEW OF SYSTEMS: Done for constitutional ,cardiovascular, GI, pulmonary with relevant findings as above. CURRENT MEDICATIONS Ativan, aspirin, Lipitor, Coreg, Lovenox, Zosyn PHYSICAL EXAM: VITAL SIGNS: Temperature 98.4 pulse 97 respiratory rate 18 blood pressure 164/84 oxygen saturation 97% on room air GENERAL APPEARANCE: Sitting in bed, anxious appearing. EYES: Pupils equal. Conjunctiva normal. NECK: JVD unable to assess. Mass not palpable. RESPIRATORY: Respiratory effort normal. Lungs clear to auscultation. CARDIOVASCULAR: First and second sounds normal. No edema. ABDOMEN: Soft. tender to palpation Liver and spleen not palpable. No mass palpable. PSYCHIATRY: Alert and oriented x3. Mood and affect anxious appearing. INVESTIGATIONS: White blood cell count 9.3, hemoglobin 11.7, platelet count 338, potassium 3.1 Computed tomography scan of abdomen: Slight increase in volume of intra- abdominal free air in the upper abdomen when compared with 10/04/2016, appears to be within the endometrial canal the uterus ASSESSMENT: 1.Acute abdominal pain, computed tomography scan shows some free air, possible colovaginal fistula versus microperforation. 2.Colonic diverticulosis without evidence for acute diverticulitis 3.Moderate large hiatal hernia, stable. 4.Primary osteo-arthritis of multiple joints bilateral 5.Coronary artery disease with history of coronary artery bypass grafting last stent on 05/04/2016 at [facility] 6.Diabetes mellitus type 2 on oral hypoglycemics, chronically. 7.Hyperlipidemia. 8.Hypertensive urgency present on admission, uncontrolled 9.Irritable bowel syndrome, controlled 10.Peripheral neuropathy from diabetes 11.Kidney stones asymptomatic 12.Chronic insomnia 13.Medical debility patient uses a wheelchair and walker currently 14. Depression/anxiety not otherwise specified. 15. Acute Urinary tract infection, organism enterococcus faecium VRE, started on daptomycin. 16. Hypokalemia likely due to poor nutritional intake, supplemented PLAN: Diet nothing by mouth by surgery today, await further recommendations. Continue current medication and treatment plan We'll continue to follow closely. INSPECTOR FLOOR [employer]SEMBLY statement: Patient was seen and examined by nurse practitioner Letty Culver in all elements of the case discussed with attending is Dr. Wong
[2016-10-08] MEDS: AMITRIPTYLINE HCL 50 MG TAB PO SCH (20:18)
[2016-10-08] MEDS: ATORVASTATIN 40 MG TAB PO SCH (20:18)
[2016-10-09] MEDS: SODIUM CHLORIDE 0.9% 1,000 ML IV SCH ×2 (01:07→14:27)
[2016-10-09] MEDS: MORPHINE SULFATE 4 MG/ML SYRINGE IV PRN ×2 (06:13→09:59)
[2016-10-09 07:54] LABS: ALT 28 U/L (9-52); AST 24 U/L (14-36); Alkaline Phosphatase 87 U/L (38-126); Anion Gap 9 mmol/L; Blood Urea Nitrogen 3 mg/dL (7-17); Calcium 8.7 mg/dL (8.4-10.2); Carbon Dioxide 24 mmol/L (22-30); Chloride 106 mmol/L (98-107); Glucose 202 mg/dL (74-99); Non-African American GFR(MDRD) >60 (>60 ml/min/1.73 sqM); Potassium 3.5 mmol/L (3.5-5.1); Sodium 139 mmol/L (137-145); Total Bilirubin 0.5 mg/dL (0.2-1.3); Total Protein 6.5 g/dL (6.3-8.2)
--- NOTE | 2016-10-09 07:57 | PN ---
DATE OF SERVICE: 10/08/2016 ATTENDING NOTE: This patient was seen and examined by me earlier today. I reviewed the note of my nurse practitioner, Ms. Culver. Discussed additional findings below. This is a patient who presented with what is suspected to be colovaginal fistula or microperforation. Patient complaining of more bloating and abdominal pain. The CT scan was done that is showing ( ) increase in air. On examination, lower abdominal tenderness. No guarding or rigidity. PSYCH: Answering some more questions. ASSESSMENT: Possibly colovaginal fistula or a microperforation with slight increase in free air. Patient's white count otherwise normal. PLAN: At this point, follow with Surgery. Antibiotics to continue. Patient is on IV daptomycin.
[2016-10-09 08:04] LABS: Basophils % (A) 1 %; CH 26.8; CHCM 31.2; Eosinophils # (A) 1.8 k/uL (0-0.7); Eosinophils % (A) 22 %; HCT 36.2 % (34.0-46.0); HDW 2.82; HGB 11.4 gm/dL (11.4-16.0); Hypochromasia Slight; Luc # (Auto) 0.13; Luc % (Auto) 2; Lymphocytes # (A) 2.6 k/uL (1.0-4.8); Lymphocytes % (A) 31 %; MCHC 31.4 g/dL (31.0-37.0); MCV 86.2 fL (80.0-100.0); Mean Platelet Volume 6.6; Monocytes # (A) 0.5 k/uL (0-1.0); Monocytes % (A) 6 %; Neutrophils # (A) 3.2 k/uL (1.3-7.7); Neutrophils % (A) 39 %; RDW 15.4 % (11.5-15.5); WBC 8.2 k/uL (3.8-10.6); WBC (Perox) 8.34
[2016-10-09] MEDS: DAPTOmycin 500 MG in SODIUM CHLORIDE 0.9% 50 ML IV SCH (09:24)
[2016-10-09] MEDS: ASPIRIN 81 MG CHEW PO SCH (09:25)
[2016-10-09] MEDS: CARVEDILOL 3.125 MG TAB PO SCH ×2 (09:25→17:57)
[2016-10-09] MEDS: ENOXAPARIN 40 MG/0.4 ML SYRINGE SQ SCH (09:25)
[2016-10-09] MEDS: LOSARTAN 25 MG TAB PO SCH (09:26)
[2016-10-09] MEDS: CITALOPRAM HYDROBROMIDE 20 MG TAB PO SCH (09:26)
[2016-10-09] MEDS: ISOSORBIDE MONONITRATE ER 30 MG TAB.ER.24H PO SCH (09:26)
[2016-10-09] MEDS: PANTOPRAZOLE 40 MG TABLET PO SCH (09:26)
[2016-10-09] MEDS: TRIAMCINOLONE 0.1% CREAM 80 GM TUBE TOPICAL SCH ×2 (09:27→21:41)
--- NOTE | 2016-10-09 13:24 | P.PN ---
Subjective 81-year-old female seen and evaluated this morning currently sitting up in bed. Nursing reports patient was incontinent of stool last evening. Dr. Sexton did discuss with the patient and the patient's son at the bedside plan of care. If There are no new medical issues within the next 24 hours anticipate the patient to be able to transferred back to the [facility] facility in [place] with the plan the patient will return in the next 3-[address] Sexton for possible colonoscopy which will be arranged in the outpatient setting at this time there is no surgical intervention indicated at this time. Patient states her abdomen is less tender and clinically patient has improved remained afebrile with a white count down to 8.2 Objective - Vital Signs Vital signs: Vital Signs Temp 98.4 F 10/09/16 07:00 Pulse 83 10/09/16 07:00 Resp 18 10/09/16 07:00 BP 158/79 10/09/16 07:00 Pulse Ox 96 10/09/16 07:00 Intake & Output 10/08/16 10/09/16 10/09/16 18:59 06:59 18:59 Intake Total 2120 Balance 2120 Weight 70 kg Intake: IV 880 Sodium Chloride 0.9% 1, 880 000 ml @ 110 mls/hr IV . Q9H6M [facility] Rx#:[id number] Oral 1240 Other: Voiding Method Toilet Toilet Toilet Bedside Commode # Voids 1 2 1 # Bowel Movements 1 1 - Exam Physical exam 81-year-old female resting in bed does not appear in any acute distress oriented 3 talkative tolerating a soft diet Lungs essentially clear adequate air movement no cough noted no shortness of breath at rest or conversation Heart S1-S2 audible regular no murmur denying chest Abdomen soft not distended nontender bowel tones present urinating no difficulty Extremities no edema noted - Labs CBC & Chem 7: 10/09/16 07:20 10/09/16 07:20 Labs: Abnormal Lab Results - Last 24 Hours (Table) 10/09/16 10/09/16 Range/Units 07:20 07:20 Eosinophils # 1.8 H (0-0.7) k/uL BUN 3 L (7-17) mg/dL Creatinine 0.40 L (0.52-1.04) mg/dL Glucose 202 H (74-99) mg/dL Albumin 2.9 L (3.5-5.0) g/dL Assessment and Plan Plan: Impression Present on admission persistent abdominal pain due to free air in the abdomen and pelvis CAT scan of the abdomen and pelvis this admission shows: Diverticulosis without evidence of acute diverticulitis with air within the uterus suspect fistula A recent fall resulting in the left hip fracture status post repair recuperating in an extended care facility History of coronary artery disease with prior coronary artery bypass grafting with a recent coronary stent placed in April 2016 at [facility] History of irritable bowel syndrome History of chronic constipation Hypertension Type 2 diabetes on oral hypoglycemic controlled Chronic diverticulosis as evident on a CAT scan of the abdomen pelvis with no evidence of acute diverticulitis Hyperlipidemia History of irritable bowel syndrome controlled Depressive anxiety disorder nonspecified Present on admission a urinary tract infection urine culture VRE, enteroccus Plan Pain control Stop the IV antibiotics daptomycin IV fluids as ordered DVT and GI prophylaxis Increase activity Start Zyvox 600 mg by mouth twice a day for 2 weeks for treatment of the UTI with urine culture positive for VRE Plan on discharging to the [facility] facility tomorrow if no new medical issues Will continue conservative treatment and monitor's closely Patient will be followed in the next 3-4 weeks for an outpatient colonoscopy with Dr. Sexton this will be set up an outpatient setting The above dictated assessment and findings were discussed with dr sexton Impression and the plan of care have been dictated as directed. Alysha Moran nurse practitioner acting as a scribe for dr sexton
[2016-10-09] MEDS ORDERED: POTASSIUM CHLORIDE ER 20 MEQ TAB.ER PO STA (13:27)
[2016-10-09] MEDS: LINEZOLID 600 MG TAB PO SCH ×2 (14:17→21:41)
--- NOTE | 2016-10-09 17:32 | P.PN ---
Progress Note - Text DATE OF SERVICE: 10/09/2016 PRESENTING COMPLAINT: Acute abdominal pain INTERVAL HISTORY: Presented with acute abdominal pain concerns for possible perforation/free air. Today, has continued complaints of abdominal pain. Diet changed soft advance as tolerated l. No nausea, vomiting. Had a BM today. Patient has not been out of bed today. Looks anxious. REVIEW OF SYSTEMS: Done for constitutional ,cardiovascular, GI, pulmonary with relevant findings as above. CURRENT MEDICATIONS Ativan, aspirin, Lipitor, Coreg, Lovenox, Zyvox, Bentyl PHYSICAL EXAM: VITAL SIGNS: Temperature 98.4, pulse 97 respirations 18, blood pressure 164/84, oxygen saturation 97% on room air. GENERAL APPEARANCE: Lying in bed, anxious appearing. EYES: Pupils equal. Conjunctiva normal. NECK: JVD unable to assess. Mass not palpable. RESPIRATORY: Respiratory effort normal. Lungs clear to auscultation. CARDIOVASCULAR: First and second sounds normal. No edema. ABDOMEN: Soft. tender to palpation Liver and spleen not palpable. No mass palpable. PSYCHIATRY: Alert and oriented x3. Mood and affect anxious appearing. INVESTIGATIONS: Labs within normal limits. Computed tomography scan of abdomen: Slight increase in volume of intra- abdominal free air in the upper abdomen when compared with 10/04/2016, appears to be within the endometrial canal the uterus ASSESSMENT: 1.Acute abdominal pain, computed tomography scan shows some free air, possible colovaginal fistula versus microperforation, slow to respond. 2.Colonic diverticulosis without evidence for acute diverticulitis 3.Moderate large hiatal hernia, stable. 4.Primary osteo-arthritis of multiple joints bilateral 5.Coronary artery disease with history of coronary artery bypass grafting last stent on 05/04/2016 at [facility] 6.Diabetes mellitus type 2 on oral hypoglycemics, chronically. 7.Hyperlipidemia. 8.Hypertensive urgency present on admission, uncontrolled 9.Irritable bowel syndrome, uncontrolled 10.Peripheral neuropathy from diabetes 11.Kidney stones asymptomatic 12.Chronic insomnia 13.Medical debility patient uses a wheelchair and walker currently 14. Depression/anxiety not otherwise specified. 15. Acute Urinary tract infection, organism enterococcus faecium VRE, change by surgery to Zyvox. 16. Hypokalemia likely due to poor nutritional intake, resolved PLAN: No plans for surgery at this time. Discussion had with patient and to family members regarding her current pain, has had chronic abdominal pain for at least 3 years per family. Added Bentyl to the current medication and treatment plan We'll continue to follow closely. TEST PULLER statement: Patient was seen and examined by nurse practitioner Letty Culver in all elements of the case discussed with attending is Dr. Wong
[2016-10-09] MEDS: DICYCLOMINE 10 MG CAP PO PRN (17:56)
[2016-10-09] MEDS: ATORVASTATIN 40 MG TAB PO SCH (21:41)
[2016-10-09] MEDS: AMITRIPTYLINE HCL 50 MG TAB PO SCH (21:41)
[2016-10-09] MEDS: HYDROcodone/APAP 5-325MG 1 EACH TAB PO PRN (21:41)
--- NOTE | 2016-10-09 22:16 | PN ---
DATE OF SERVICE: 10/09/2016 ATTENDING NOTE: This patient was seen and examined by me earlier today. I reviewed the note of my nurse practitioner, Ms. Culver; reviewed, discussed initial findings below. This patient presented with abdominal pain felt to be possible perforation and free air localized. Per Surgery, no further intervention to be done. Continue with antibiotics. Patient's diet has been advanced. Patient still complains of some pain. Patient's family is at the bedside. On examination, mild lower abdominal tenderness. No guarding or rigidity. Patient is afebrile. ASSESSMENT: Acute on chronic abdominal pain, possible colovaginal fistula versus microperforation. Patient's family did state that patient has had pain for about 3 years, so some of this could be irritable bowel syndrome that she been told. PLAN: At this point, will go ahead and add Bentyl. Antibiotics are to continue. Follow.
[2016-10-10 07:58] VITALS: BP 147/70; PULSE 82; RESP 16; TEMP 98.1
[2016-10-10] MEDS: ONDANSETRON 4 MG/2 ML VIAL IVP PRN (07:58)
[2016-10-10 08:02] LABS: Basophils # (A) 0.1 k/uL (0-0.2); Basophils % (A) 1 %; CH 26.7; CHCM 31.2; Eosinophils # (A) 2.1 k/uL (0-0.7); Eosinophils % (A) 24 %; HDW 2.77; HGB 11.1 gm/dL (11.4-16.0); Hypochromasia Slight; Luc # (Auto) 0.19; Luc % (Auto) 2; Lymphocytes # (A) 3.2 k/uL (1.0-4.8); Lymphocytes % (A) 36 %; MCH 26.4 pg (25.0-35.0); MCHC 30.8 g/dL (31.0-37.0); MCV 85.8 fL (80.0-100.0); Monocytes # (A) 0.5 k/uL (0-1.0); Monocytes % (A) 6 %; Neutrophils # (A) 2.9 k/uL (1.3-7.7); Neutrophils % (A) 32 %; RBC 4.19 m/uL (3.80-5.40); RDW 15.5 % (11.5-15.5); WBC (Perox) 8.96
[2016-10-10 08:16] LABS: ALT 27 U/L (9-52); AST 21 U/L (14-36); Alkaline Phosphatase 86 U/L (38-126); Anion Gap 7 mmol/L; Blood Urea Nitrogen 4 mg/dL (7-17); Calcium 9.1 mg/dL (8.4-10.2); Carbon Dioxide 26 mmol/L (22-30); Chloride 102 mmol/L (98-107); Glucose 198 mg/dL (74-99); Non-African American GFR(MDRD) >60 (>60 ml/min/1.73 sqM); Sodium 135 mmol/L (137-145); Total Bilirubin 0.5 mg/dL (0.2-1.3); Total Protein 6.5 g/dL (6.3-8.2)
[2016-10-10 08:29] LABS: Polychromasia Present
[2016-10-10] MEDS: ENOXAPARIN 40 MG/0.4 ML SYRINGE SQ SCH (08:34)
[2016-10-10] MEDS: LINEZOLID 600 MG TAB PO SCH (08:35)
[2016-10-10] MEDS: CARVEDILOL 3.125 MG TAB PO SCH (08:35)
[2016-10-10] MEDS: ISOSORBIDE MONONITRATE ER 30 MG TAB.ER.24H PO SCH (08:35)
[2016-10-10] MEDS: PANTOPRAZOLE 40 MG TABLET PO SCH (08:35)
[2016-10-10] MEDS: CITALOPRAM HYDROBROMIDE 20 MG TAB PO SCH (08:35)
[2016-10-10] MEDS: LOSARTAN 25 MG TAB PO SCH (08:36)
[2016-10-10] MEDS: ASPIRIN 81 MG CHEW PO SCH (08:36)
[2016-10-10] MEDS: TRIAMCINOLONE 0.1% CREAM 80 GM TUBE TOPICAL SCH (08:37)
[2016-10-10] MEDS: HYDROcodone/APAP 5-325MG 1 EACH TAB PO PRN (08:41)
[2016-10-10] MEDS: DICYCLOMINE 10 MG CAP PO PRN (08:55)
--- NOTE | 2016-10-10 14:12 | P.DS ---
Providers Date of admission: 10/04/16 13:09 Expected date of discharge: 10/10/16 Attending physician: Jose Sexton Consults: 10/04/16 13:09 Consult Physician Stat Consulting Provider: Isela Kaur Consult Reason/Comments: critical care Do you want consulting provider notified?: Already Contacted 10/04/16 13:10 Consult Physician Urgent Consulting Provider: Gm Warner Consult Reason/Comments: cardiac clearance Do you want consulting provider notified?: Yes Consult Physician Urgent Consulting Provider: Jose Alberto Wong Consult Reason/Comments: medical care Do you want consulting provider notified?: Already Contacted Primary care physician: Dewayne Spears [facility] Course: This is a very pleasant 81-year-old female patient who follows with Dr. Spears as her primary care physician. She has a history of diabetes mellitus, hypertension, coronary artery disease with previous coronary artery bypass grafting. Most recently she had some cardiac stent placements in April 2016 at [facility]. She had been in inpatient rehabilitation where she fell and broke her hip a few weeks ago and remained in an extended care facility in [place]. 2-3 days ago she developed abdominal discomfort and presented to [facility] today for the same. A computed tomography scan revealed abdominal free air and she was transferred here to our emergency room. 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 She had been seen and evaluated by Dr. Sexton for possible surgical repair however after his discussion with the patient and family who indicated they wished to continue with conservative treatment. The patient remains on Plavix for her stent placement in April 2016. Computed tomography scan of the abdomen here does reveal free intraperitoneal air with colonic diverticulosis without clear evidence of acute diverticulitis. There is additional prominent air distending the uterine cavity and air within the rectum and close apposition to air within the vaginal canal. Suspect fistula. There is moderate to large hiatal hernia. Initially was admitted to the intensive care unit. Patient was able to be stabilized and transferred out of the intensive care unit to a stepdown unit and monitored closely She does continue with abdominal discomfort but is not guarding or complaining of significant pain. Patient's family indicates the patient has had chronic abdominal pain for at least 3 [address] other complaints. Dr. Sexton felt that patient's abdominal pain and the findings on the CAT scan was from a microperforation that has self sealed felt that there was no acute indication for abdominal surgery No chest pain, no shortness of breath. No fever chills or night sweats. She does have fatigue. She has no leukocytosis. Hemoglobin stable at 12.0. Sodium 136 potassium 5.2 carbon dioxide 21 creatinine 0.41. Patient's urinalysis did come back positive for acute urinary tract infection positive for VRE. Patient was treated with the appropriate antibiotic. At the time of discharge patient abdominal pain was not acute patient was up ambulating with the use of a walker with standby assist to the bathroom and back patient was stooling abdomen was soft not distended patient was felt to be appropriate to transfer [facility] with the plan that the patient would return in one week to see Dr. Sexton in the office to discuss in the office plan for outpatient colonoscopy patient is on Plavix this will need to be discussed with the patient if needed to stop the Plavix if the patient elected to undergo colonoscopy in the outpatient setting Impression discharge diagnosis Present on admission abdominal pain suspect due to microperforation that has self sealed CAT scan of the abdomen pelvis shows Diverticulosis without clear evidence of acute diverticulitis with air within the uterus suspect fistula Present on admission abdominal pain secondary to free air in the abdomen and pelvis suspect due to microperforation that has self sealed Known coronary artery disease with prior coronary artery bypass grafting and a recent coronary stent placed in April 2016 at [facility] CAT scan of the abdomen and pelvis this admission shows: Diverticulosis without evidence of acute diverticulitis with air within the uterus suspect fistula A recent fall resulting in the left hip fracture status post repair recuperating in an extended care facility History of coronary artery disease with prior coronary artery bypass grafting with a recent coronary stent placed in April 2016 at [facility] History of irritable bowel syndrome History of chronic constipation Hypertension Type 2 diabetes on oral hypoglycemic controlled chronic pain Hyperlipidemia History of irritable bowel syndrome controlled Depressive anxiety disorder nonspecified Present on admission a urinary tract infection urine culture VRE, enteroccus Physical debility due to comorbidities and a recent fall The above dictated assessment and findings were discussed with dr sexton Impression and the plan of care have been dictated as directed. Alysha Moran nurse practitioner acting as a scribe for dr sexton Plan - Discharge Summary New Discharge Prescriptions: New Dicyclomine [Bentyl] 10 mg PO TID PRN #90 cap PRN Reason: Dyspepsia Linezolid [Zyvox] 600 mg PO Q12HR #28 tab LORazepam [Ativan] 1 mg PO HS PRN #30 tab PRN Reason: Anxiety HYDROcodone/APAP 5-325MG [[place] 5-325] 1 each PO Q4HR PRN #30 tab PRN Reason: Moderate Pain Continue glipiZIDE [Glucotrol] 5 mg PO DAILY Hydrochlorothiazide [Hydrodiuril] 12.5 mg PO DAILY metFORMIN HCL [metFORMIN HCL ER] 1,000 mg PO BID Multivit-Min/Iron/Folic/Lutein [Centrum Silver Women Tablet] 1 tab PO DAILY Clopidogrel Bisulfate [Plavix] 75 mg PO DAILY Carvedilol [Coreg] 3.125 mg PO BID Nitroglycerin Sl Tabs [Nitrostat] 0.4 mg SUBLINGUAL Q5M PRN PRN Reason: Chest Pain Esomeprazole Magnesium [NexIUM] 40 mg PO DAILY Isosorbide Mononitrate ER [Imdur] 30 mg PO DAILY Atorvastatin [Lipitor] 40 mg PO HS Acetaminophen [Tylenol] 1,000 mg PO Q6HR PRN PRN Reason: Pain Triamcinolone 0.1% Cream [Kenalog] 1 applicatio TOPICAL BID Cetirizine HCl [Zyrtec] 10 mg PO DAILY Aspirin [Adult Low Dose Aspirin EC] 81 mg PO DAILY LORazepam [Ativan] 1 mg PO HS PRN PRN Reason: Anxiety Citalopram Hydrobromide [CeleXA] 20 mg PO DAILY Cholecalciferol (Vitamin D3) [Vitamin D3] 2,000 unit PO DAILY Amitriptyline HCl 50 mg PO HS Losartan Potassium [Cozaar] 25 mg PO DAILY Discharge Medication List Hydrochlorothiazide [Hydrodiuril] 12.5 mg PO DAILY 04/11/14 [History] glipiZIDE [Glucotrol] 5 mg PO DAILY 04/11/14 [History] metFORMIN HCL [metFORMIN HCL ER] 1,000 mg PO BID 04/11/14 [History] Acetaminophen [Tylenol] 1,000 mg PO Q6HR PRN 10/04/16 [History] Amitriptyline HCl 50 mg PO HS 10/04/16 [History] Aspirin [Adult Low Dose Aspirin EC] 81 mg PO DAILY 10/04/16 [History] Atorvastatin [Lipitor] 40 mg PO HS 10/04/16 [History] Carvedilol [Coreg] 3.125 mg PO BID 10/04/16 [History] Cetirizine HCl [Zyrtec] 10 mg PO DAILY 10/04/16 [History] Cholecalciferol (Vitamin D3) [Vitamin D3] 2,000 unit PO DAILY 10/04/16 [History] Citalopram Hydrobromide [CeleXA] 20 mg PO DAILY 10/04/16 [History] Clopidogrel Bisulfate [Plavix] 75 mg PO DAILY 10/04/16 [History] Esomeprazole Magnesium [NexIUM] 40 mg PO DAILY 10/04/16 [History] Isosorbide Mononitrate ER [Imdur] 30 mg PO DAILY 10/04/16 [History] LORazepam [Ativan] 1 mg PO HS PRN 10/04/16 [History] Losartan Potassium [Cozaar] 25 mg PO DAILY 10/04/16 [History] Multivit-Min/Iron/Folic/Lutein [Centrum Silver Women Tablet] 1 tab PO DAILY 12/13 [History] Nitroglycerin Sl Tabs [Nitrostat] 0.4 mg SUBLINGUAL Q5M PRN 10/04/16 [History] Triamcinolone 0.1% Cream [Kenalog] 1 applicatio TOPICAL BID 10/04/16 [History] Dicyclomine [Bentyl] 10 mg PO TID PRN #90 cap 10/10/16 [Rx] HYDROcodone/APAP 5-325MG [[place]view 5-325] 1 each PO Q4HR PRN #30 tab 10/10/16 [Rx] LORazepam [Ativan] 1 mg PO HS PRN #30 tab 10/10/16 [Rx] Linezolid [Zyvox] 600 mg PO Q12HR #28 tab 10/10/16 [Rx] Follow up Appointment(s)/Referral(s): Gm Warner MD [STAFF PHYSICIAN] - 1 Week Dewayne Spears MD [Primary Care Provider] - 1-2 days Isela Kaur MD [STAFF PHYSICIAN] - 1 Week Jose Sexton MD [STAFF PHYSICIAN] - 1 Week Discharge Disposition: TRANSFER TO SNF/ECF
--- NOTE | 2016-10-10 17:10 | P.PN ---
Progress Note - Text DATE OF SERVICE: 10/10/2016 PRESENTING COMPLAINT: Acute abdominal pain INTERVAL HISTORY: Presented with acute abdominal pain concerns for possible perforation/free air. Today, has continued complaints of abdominal pain. Diet changed soft advance as tolerated . No nausea, vomiting. No improvement with Bentyl. Had a BM today. Patient has not been out of bed today. Looks anxious. REVIEW OF SYSTEMS: Done for constitutional ,cardiovascular, GI, pulmonary with relevant findings as above. CURRENT MEDICATIONS Ativan, aspirin, Lipitor, Coreg, Lovenox, Zyvox, PHYSICAL EXAM: VITAL SIGNS: Temperature 98.8, pulse 82 respirations 18 blood pressure 147/70 oxygen saturation 99% on room air. GENERAL APPEARANCE: Lying in bed, anxious appearing. EYES: Pupils equal. Conjunctiva normal. NECK: JVD unable to assess. Mass not palpable. RESPIRATORY: Respiratory effort normal. Lungs clear to auscultation. CARDIOVASCULAR: First and second sounds normal. No edema. ABDOMEN: Soft. tender to palpation Liver and spleen not palpable. No mass palpable. PSYCHIATRY: Alert and oriented x3. Mood and affect anxious appearing. INVESTIGATIONS: Hemoglobin 11.1, sodium 135, BUN 4, creatinine 0.42. Accu-Cheks noted ASSESSMENT: 1.Acute abdominal pain, computed tomography scan shows some free air, possible colovaginal fistula versus microperforation, slow to respond. 2.Colonic diverticulosis without evidence for acute diverticulitis 3.Moderate large hiatal hernia, stable. 4.Primary osteo-arthritis of multiple joints bilateral 5.Coronary artery disease with history of coronary artery bypass grafting last stent on 05/04/2016 at [facility] 6.Diabetes mellitus type 2 on oral hypoglycemics, chronically. 7.Hyperlipidemia. 8.Hypertensive urgency present on admission, uncontrolled 9.Irritable bowel syndrome, uncontrolled 10.Peripheral neuropathy from diabetes 11.Kidney stones asymptomatic 12.Chronic insomnia 13.Medical debility patient uses a wheelchair and walker currently 14. Depression/anxiety not otherwise specified. 15. Acute Urinary tract infection, organism enterococcus faecium VRE, change by surgery to Zyvox. 16. Hypokalemia likely due to poor nutritional intake, resolved PLAN: No plans for surgery at this time. Encouraged patient to eat less acidic foods , continue Zyvox, transfer to [facility]. We'll continue to follow closely. SUPERVISOR INSECTICIDE statement: Patient was seen and examined by nurse practitioner Letty Culver in all elements of the case discussed with attending is Dr. Wong
--- NOTE | 2016-10-10 20:22 | PN ---
DATE OF SERVICE: 10/10/2016 ATTENDING NOTE: Patient was seen and examined by me earlier today. I reviewed the note of my nurse practitioner, Ms. Culver. Discussed additional findings below. Patient admitted with abdominal pain felt to be possible perforation. Antibiotics. Also has got a UTI. Still has abdominal pain. Was given Bentyl. Did not help her much. I decided to stop the Bentyl. On exam: ABDOMEN: Mild tenderness. ABDOMEN: Soft, nontender. The patient answering questions. [facility] Antibiotics are to continue. Patient will get a course of Zyvox. Overall prognosis is guarded.
== END 2016-10-10 15:15 | DRG 392 ==
LOC: EC 10:51 → 6ICU 13:09 → 5MS5E 10-05 17:41
PROVIDERS: ADMIT Surgery; ATTEND Surgery
DX: K57.30 Diverticulosis of large intestine without perforation or abscess without bleeding (principal); E11.22 Type 2 diabetes mellitus with diabetic chronic kidney disease; E11.42 Type 2 diabetes mellitus with diabetic polyneuropathy; N39.0 Urinary tract infection, site not specified; N82.3 Fistula of vagina to large intestine; B95.2 Enterococcus as the cause of diseases classified elsewhere; E78.5 Hyperlipidemia, unspecified; E87.6 Hypokalemia; F32.9 Major depressive disorder, single episode, unspecified; F41.9 Anxiety disorder, unspecified; F51.04 Psychophysiologic insomnia; G89.29 Other chronic pain; I12.9 Hypertensive chronic kidney disease with stage 1 through stage 4 chronic kidney disease, or unspecified chronic kidney disease; I16.0 Hypertensive urgency; I25.10 Atherosclerotic heart disease of native coronary artery without angina pectoris; I25.2 Old myocardial infarction; K44.9 Diaphragmatic hernia without obstruction or gangrene; K58.1 Irritable bowel syndrome with constipation; N18.9 Chronic kidney disease, unspecified; N20.0 Calculus of kidney; R32 Unspecified urinary incontinence; Z16.21 Resistance to vancomycin; Z96.649 Presence of unspecified artificial hip joint; Z79.02 Long term (current) use of antithrombotics/antiplatelets; Z79.82 Long term (current) use of aspirin; Z79.84 Long term (current) use of oral hypoglycemic drugs; Z79.899 Other long term (current) drug therapy; Z95.1 Presence of aortocoronary bypass graft; Z95.5 Presence of coronary angioplasty implant and graft
CPT/HCPCS: 74022; 74176; 74178; 80048; 80053; 81001; 82150; 82550; 82553; 83690; 83735; 84100; 84132; 84484; 85025; 85610; 85730; 87077; 87086; 87186; 93005; 93306; 94760

== ENCOUNTER 2018-05-25 12:31 | Inpatient (IN) | payer MEDICARE, OTHER ==
[2018-05-25] MEDS ORDERED: ACETAMINOPHEN TAB 500 MG TAB PO STA (13:15)
[2018-05-25] MEDS ORDERED: SODIUM CHLORIDE 0.9% 500 ML 500 ML IV SCH (13:15)
[2018-05-25] MEDS ORDERED: HEPARIN SODIUM,PORCINE 5,000 UNIT/ML 1 ML VIAL IV PRN (13:16)
[2018-05-25] MEDS ORDERED: NITROGLYCERIN SL TABS 0.4 MG TAB SUBLINGUAL PRN (13:18)
--- NOTE | 2018-05-25 13:24 | ED ---
General Adult HPI - General Chief complaint: Chest Pain Stated complaint: Chest pain Time Seen by Provider: 05/25/18 12:34 Source: patient, EMS, RN notes reviewed, old records reviewed Mode of arrival: EMS Limitations: no limitations - History of Present Illness Initial comments: Patient is a pleasant 82-year-old female presenting to the emergency Department as a transfer from [facility]. Patient did present there with anterior chest pain or abdominal pain. Patient states she does have chest discomfort frequently however this is worse than normal. Patient did have some associated dyspnea and nausea and sweating. Discomfort is mild at this time. Patient also has had some lower abdominal discomfort. [facility] and [place] patient did have some ST depression EKG with of troponin of 0.09. Patient was started on heparin. Patient was also found to have UTI with white blood cell count of 21, 000 and lactic acid of 3.9. They didn't start antibiotics. They also did computed tomography scan of the abdomen pelvis that was reported as no acute process. They did provide aspirin and nitro glycerin. - Related Data Home Medications Medication Instructions Recorded Confirmed Hydrochlorothiazide [Hydrodiuril] 12.5 mg PO DAILY 04/11/14 10/04/16 glipiZIDE [Glucotrol] 5 mg PO DAILY 04/11/14 10/04/16 metFORMIN HCL [metFORMIN HCL ER] 1,000 mg PO BID 04/11/14 10/04/16 Acetaminophen [Tylenol] 1,000 mg PO Q6HR PRN 10/04/16 10/04/16 Amitriptyline HCl 50 mg PO HS 10/04/16 10/04/16 Aspirin [Adult Low Dose Aspirin EC] 81 mg PO DAILY 10/04/16 10/04/16 Atorvastatin [Lipitor] 40 mg PO HS 10/04/16 10/04/16 Carvedilol [Coreg] 3.125 mg PO BID 10/04/16 10/04/16 Cetirizine HCl [Zyrtec] 10 mg PO DAILY 10/04/16 10/04/16 Cholecalciferol (Vitamin D3) 2,000 unit PO DAILY 10/04/16 10/04/16 [Vitamin D3] Citalopram Hydrobromide [CeleXA] 20 mg PO DAILY 10/04/16 10/04/16 Clopidogrel Bisulfate [Plavix] 75 mg PO DAILY 10/04/16 10/04/16 Esomeprazole Magnesium [NexIUM] 40 mg PO DAILY 10/04/16 10/04/16 Isosorbide Mononitrate ER [Imdur] 30 mg PO DAILY 10/04/16 10/04/16 LORazepam [Ativan] 1 mg PO HS PRN 10/04/16 10/04/16 Losartan Potassium [Cozaar] 25 mg PO DAILY 10/04/16 10/04/16 Multivit-Min/Iron/Folic/Lutein 1 tab PO DAILY 10/04/16 10/04/16 [Centrum Silver Women Tablet] Nitroglycerin Sl Tabs [Nitrostat] 0.4 mg SUBLINGUAL Q5M PRN 10/04/16 10/04/16 Triamcinolone 0.1% Cream [Kenalog 1 applicatio TOPICAL BID 10/04/16 10/04/16 0.1% Cream] Previous Rx's Medication Instructions Recorded Dicyclomine [Bentyl] 10 mg PO TID PRN #90 cap 10/10/16 HYDROcodone/APAP 5-325MG [[place] 1 each PO Q4HR PRN #30 tab 10/10/16 5-325] LORazepam [Ativan] 1 mg PO HS PRN #30 tab 10/10/16 Linezolid [Zyvox] 600 mg PO Q12HR #28 tab 10/10/16 Allergies Allergy/AdvReac Type Severity Reaction Status Date / Time ciprofloxacin [From Cipro] AdvReac Nausea & Verified 10/04/16 15:11 Vomiting & Diarrhea levofloxacin [From Levaquin] AdvReac Nausea & Verified 10/04/16 15:11 Vomiting & Diarrhea Review of Systems ROS Statement: Those systems with pertinent positive or pertinent negative responses have been documented in the HPI. ROS Other: All systems not noted in ROS Statement are negative. Constitutional: Denies: fever Eyes: Denies: eye pain ENT: Denies: ear pain Respiratory: Reports: dyspnea. Denies: cough Cardiovascular: Reports: chest pain Endocrine: Denies: fatigue Gastrointestinal: Reports: abdominal pain, nausea. Denies: vomiting Genitourinary: Reports: dysuria Musculoskeletal: Denies: back pain Skin: Denies: rash Neurological: Denies: headache Past Medical History Past Medical History: Coronary Artery Disease (CAD), Chest Pain / Angina, Diabetes Mellitus, Hyperlipidemia, Hypertension, Myocardial Infarction (PR), Renal Disease Additional Past Medical History / Comment(s): Abdominal pain chronic for past 3 yrs, IBS, diverticular dx, colon spasms, PR 05/04/16, "leaky heart valve", NIDDM type II, peripheral neuropathy bilateral feet and alittle in bilateral hands, nephrolithiasis, insomnia, UTIs, arthritis R knee, bilateral cataracts with L eye worse. Last Myocardial Infarction Date:: 05/04/16 History of Any Multi-Drug Resistant Organisms: VRE Date of last positivie culture/infection: 10/04/16 MDRO Source:: VRE URINE Past Surgical History: Coronary Bypass/CABG, Heart Catheterization With Stent, Orthopedic Surgery Additional Past Surgical History / Comment(s): 1999 CABG 3 vessel, PCI with stent 2012 and PCI with stent 05/04/16 at [facility], colonoscopies/egd's Past Anesthesia/Blood Transfusion Reactions: No Reported Reaction Date of Last Stent Placement:: 05/04/16 Past Psychological History: Anxiety Smoking Status: Never smoker Past Alcohol Use History: None Reported Past Drug Use History: None Reported - Past Family History Father Family Medical History: Cancer Additional Family Medical History / Comment(s): Father of lung cancer at the age of 68yrs. He was a smoker. Mother Family Medical History: No Reported History Additional Family Medical History / Comment(s): Mother was healthy and at the age of 87yrs. General Exam Limitations: no limitations General appearance: alert, in no apparent distress Head exam: Present: atraumatic Eye exam: Present: normal appearance, PERRL ENT exam: Present: normal oropharynx Neck exam: Present: normal inspection Respiratory exam: Present: normal lung sounds bilaterally. Absent: chest wall tenderness Cardiovascular Exam: Present: regular rate, normal rhythm Expanded Peripheral pulses: 2+: Radial (R), Radial (L), Dorsalis Pedis (R), Dorsalis Pedis (L) GI/Abdominal exam: Present: soft, tenderness (Minimal tenderness lower abdomen) . Absent: distended Extremities exam: Present: pedal edema (Patient states chronic). Absent: calf tenderness Neurological exam: Present: alert Psychiatric exam: Present: normal affect, normal mood Skin exam: Present: normal color Course Vital Signs 05/25/18 05/25/18 05/25/18 13:00 13:13 13:30 Temperature 99.2 F Pulse Rate 90 Respiratory 18 18 18 Rate Blood Pressure 149/74 146/72 146/72 O2 Sat by Pulse 99 99 99 Oximetry 05/25/18 05/25/18 05/25/18 14:00 14:30 15:00 Temperature Pulse Rate 99 Respiratory 18 18 18 Rate Blood Pressure 153/77 150/102 157/86 O2 Sat by Pulse 99 99 98 Oximetry - Reevaluation(s) Reevaluation #1: 05/25/18 13:23 Patient family were updated on results and plan. Dr. Wong has been paged for admission for Dr. Phillips. 05/25/18 14:01 Case was discussed with Dr. dodge, who will admit EKG Findings - EKG Comments: EKG Findings:: Normal sinus rhythm 98. WA 196. QRS 90. QT 376. QTc 40. Normal axis. Normal QRS. Nonspecific T waves. Critical Care Time Critical Care Time: Yes Total Critical Care Time: 34 Disposition Clinical Impression: Acute coronary syndrome, Urinary tract infection, Severe sepsis Disposition: ADMITTED IP TO THIS HOSP Condition: Serious
[2018-05-25] MEDS: ASPIRIN 81 MG PO STA ×2 (14:38→14:44)
[2018-05-25] MEDS: HEPARIN SOD,PORK IN 0.45% NACL 25,000 UNIT in 0.45% NACL 1 250ML.BAG IV SCH (14:50)
[2018-05-25] MEDS: SODIUM CHLORIDE 0.9% 1,000 ML IV SCH ×2 (14:50→21:15)
[2018-05-25 16:15] LABS: Glucose,Whole Blood 328 mg/dL (75-99)
[2018-05-25 16:17] LABS: Basophils # (A) 0.1 k/uL (0-0.2); Basophils % (A) 0 %; Eosinophils # (A) 0.1 k/uL (0-0.7); Eosinophils % (A) 1 %; HCT 37.7 % (34.0-46.0); HGB 11.8 gm/dL (11.4-16.0); Lymphocytes # (A) 2.5 k/uL (1.0-4.8); Lymphocytes % (A) 12 %; MCH 30.3 pg (25.0-35.0); MCHC 31.2 g/dL (31.0-37.0); MCV 97.2 fL (80.0-100.0); Monocytes # (A) 0.9 k/uL (0-1.0); Monocytes % (A) 4 %; Neutrophils # (A) 16.8 k/uL (1.3-7.7); Neutrophils % (A) 82 %; Platelet Count 293 k/uL (150-450); RBC 3.88 m/uL (3.80-5.40); RDW 14.3 % (11.5-15.5); WBC 20.7 k/uL (3.8-10.6)
[2018-05-25 16:22] LABS: INR 1.1 (<1.2); Partial Thromboplastin Time 48.7 sec (22.0-30.0); Prothrombin Time 11.2 sec (9.0-12.0)
[2018-05-25 16:30] LABS: ALT 16 U/L (9-52); AST 23 U/L (14-36); Albumin 3.5 g/dL (3.5-5.0); Alkaline Phosphatase 64 U/L (38-126); Anion Gap 8 mmol/L; Blood Urea Nitrogen 13 mg/dL (7-17); Calcium 8.6 mg/dL (8.4-10.2); Carbon Dioxide 25 mmol/L (22-30); Chloride 106 mmol/L (98-107); Glucose 327 mg/dL (74-99); Potassium 3.9 mmol/L (3.5-5.1); Sodium 139 mmol/L (137-145); Total Bilirubin 0.5 mg/dL (0.2-1.3); Total Protein 6.7 g/dL (6.3-8.2)
[2018-05-25 16:33] VITALS: BMI 31.2
[2018-05-25 16:41] LABS: Creatine Kinase MB 0.7 ng/mL (0.0-2.4)
[2018-05-25 17:14] LABS: Troponin I 0.07 ng/mL (0.000-0.034)
[2018-05-25] MEDS ORDERED: BISACODYL 10 MG SUPP RECTAL PRN (19:04)
[2018-05-25] MEDS ORDERED: ONDANSETRON ODT 4 MG TAB PO PRN (19:04)
[2018-05-25] MEDS ORDERED: MAGNESIUM HYDROXIDE 2,400 MG/10 ML CUP PO PRN (19:04)
[2018-05-25 20:48] LABS: Glucose,Whole Blood 353 mg/dL (75-99)
[2018-05-25] MEDS: MIRTAZAPINE 15 MG TAB PO SCH (21:14)
[2018-05-25] MEDS: ACETAMINOPHEN TAB 325 MG TAB PO PRN (21:14)
[2018-05-25] MEDS: INSULIN ASPART 100 UNIT/ML 1 ML 10 ML VIAL SQ SCH (21:15)
[2018-05-25] MEDS: NYSTATIN 100,000 UNIT/GM POWD 15 GM TOPICAL SCH (21:15)
[2018-05-25] MEDS: DICYCLOMINE 10 MG CAP PO SCH (22:06)
[2018-05-25 22:19] LABS: Creatine Kinase MB 1.4 ng/mL (0.0-2.4)
--- NOTE | 2018-05-25 22:37 | HP ---
HISTORY AND PHYSICAL DATE OF ADMISSION: 05/25/2018 DATE OF SERVICE: 05/25/2018 PRESENTING COMPLAINT: Chest pain, abdominal pain. HISTORY OF PRESENTING COMPLAINT: This is a pleasant 82-year-old patient of Dr. Juan Luis Phillips who is a resident of [facility]. Chronic stable medical conditions include diabetes with diabetic peripheral neuropathy, hypertension, hyperlipidemia, irritable bowel syndrome, diverticulosis, colon spasm, chronic insomnia, and nephrolithiasis. The patient has had abdominal pain on and off for a long time of varying severity. Also gets chest pain off and on for quite some time. Today the pain was heavier than usual, precordial. Some shortness of breath. Some perspiration noted. No radiation. The patient's initial troponin did come back at 0.070. Cardiology was consulted. Also put on IV heparin. Also patient is having increasing abdominal pain some spasming. Occasionally gets diarrhea. No nausea, vomiting. stated the patient's abdominal pain also has been chronic. She says sometimes associated with passing urine, more so recently. Hence patient was transferred down here. REVIEW OF SYSTEMS: CONSTITUTIONAL: Tired. HEENT: None. CARDIOVASCULAR: As above. GASTROINTESTINAL: As above. GENITOURINARY as above. MUSCULOSKELETAL: Some pain in the joints. DERMATOLOGICAL, HEMATOLOGIC, LYMPHATICS: none. PSYCHIATRY none. NEUROLOGICAL: None. PAST MEDICAL HISTORY: Coronary artery disease, diabetes, hyperlipidemia, hypertension, chronic kidney disease, irritable bowel syndrome, diverticulosis, colon spasms, peripheral neuropathy, nephrolithiasis, insomnia, arthritis of the right knee and bilateral cataracts. PAST SURGICAL HISTORY: Coronary artery bypass, cardiac cath with stent, three-vessel bypass in 1999, stent in 2012 and 2016 . PSYCH HISTORY: History of anxiety. SOCIAL HISTORY: Currently a resident at [facility]. Mostly uses a wheelchair. Sometimes walks with a walker. No smoking. No alcohol. FAMILY HISTORY: The father of lung cancer at age of 68. HOME MEDICATIONS: 1. Glucotrol 2.5 mg with breakfast. 2. Chlordiazepoxide clidinium 1 capsule p.o. daily. 3. Zantac 150 mg p.o. daily. 4. Lyrica 50 mg p.o. daily. 5. MiraLAX 17 grams p.o. daily. 6. Ditropan XL 5 mg p.o. daily. 7. Zofran 4 mg q.12 p.r.n. 8. Nystatin topical b.i.d. 9. Remeron 22.5 p.o. q.h.s. 10.Milk of magnesia 25 mg p.o. daily p.r.n. 11.Hydrochlorothiazide 12.5 p.o. daily. 12.Plavix 75 mg p.o. daily. 13.Vitamin D3 5000 units units p.o. daily. 14.Coreg 3.125 p.o. daily. 15.Dulcolax 10 mg rectally daily p.r.n. 16.Aspirin 81 mg daily. 17.Allopurinol 100 mg p.o. daily. 18.Tylenol 1000 mg p.o. t.i.d. ALLERGIES: TO CIPRO AND LEVAQUIN. PHYSICAL EXAMINATION: VITAL SIGNS ON PRESENTATION: Temperature 99.2, pulse 98, respiratory 18, blood pressure 146/72, pulse ox 99 percent on 2 L. GENERAL APPEARANCE: Well built. BMI 30.9. Lying in bed. Tired-appearing. EYES: Pupils equal. Conjunctivae normal. HEENT: External appearance of nose and ears normal. Oral cavity normal. NECK: JVD not raised. Mass not palpable. RESPIRATORY: Effort normal. LUNGS: Fair entry. CARDIOVASCULAR: 1st and 2nd sounds normal. No edema. ABDOMEN: Slightly distended. Lower abdominal tenderness. No guarding or rigidity. Liver and spleen not palpable. LYMPHATICS: No lymph nodes palpable in the neck or axilla. PSYCHIATRY: Alert and oriented x3. Mood and affect normal. NEUROLOGICAL: Pupils equal. Cranial nerves grossly intact. Power and sensation grossly intact. INVESTIGATIONS: White count 20.7, hemoglobin 11.8, potassium 3.9. BUN and creatinine is normal. Lactic acid 2.5. Troponin I 0.070. Stool occult blood is positive. C diff is negative. ASSESSMENT: 1. Left precordial pain in a patient with known coronary artery disease, who does get pain off and on, it is more severe now with initial troponin showing 0.70. The patient may be ruling in for acute non-Q-wave myocardial infarction. 2. Urinary tract infection per labs from the other facility for which patient was started on IV ceftriaxone. 3. Coronary artery disease. 4. Diabetes mellitus type 2 on oral hypoglycemics with diabetic peripheral neuropathy. 5. Hyperlipidemia. 6. Essential hypertension. 7. Irritable bowel syndrome. 8. Diverticulosis. 9. Chronic colon spasms. 10.Chronic nephrolithiasis. 11.Chronic insomnia. 12.Obesity; BMI 30.9. PLAN: Patient is put on IV heparin, IV ceftriaxone. Home medications are resumed. IV fluids. Consultation is being made to Gastroenterology and cardiology. We will also add Patel. Prognosis is guarded given her age. Copy to Dr. Juan Luis Phillips. MMPEPPERL / IJN: [id number] /
[2018-05-25 23:05] LABS: Troponin I 0.058 ng/mL (0.000-0.034)
[2018-05-26 04:37] LABS: Basophils # (A) 0.1 k/uL (0-0.2); Basophils % (A) 0 %; Eosinophils # (A) 0.4 k/uL (0-0.7); Eosinophils % (A) 2 %; HCT 35.2 % (34.0-46.0); HGB 10.9 gm/dL (11.4-16.0); Hypochromasia Slight; Lymphocytes # (A) 2.4 k/uL (1.0-4.8); Lymphocytes % (A) 16 %; MCH 30.3 pg (25.0-35.0); MCHC 30.9 g/dL (31.0-37.0); MCV 98.1 fL (80.0-100.0); Mean Platelet Volume 6.7; Monocytes # (A) 0.7 k/uL (0-1.0); Monocytes % (A) 5 %; Neutrophils # (A) 10.9 k/uL (1.3-7.7); Neutrophils % (A) 74 %; Platelet Count 283 k/uL (150-450); RBC 3.59 m/uL (3.80-5.40); RDW 14.6 % (11.5-15.5); WBC 14.7 k/uL (3.8-10.6)
[2018-05-26 04:48] LABS: INR 1.1 (<1.2); Partial Thromboplastin Time 68.4 sec (22.0-30.0); Prothrombin Time 11.8 sec (9.0-12.0)
[2018-05-26 04:50] LABS: Cholesterol 166 mg/dL (<200); HDL Cholesterol 41 mg/dL (40-60); LDL Cholesterol,Calculated 105 mg/dL (0-99); Triglycerides 100 mg/dL (<150)
[2018-05-26 05:57] LABS: Glucose,Whole Blood 217 mg/dL (75-99)
[2018-05-26 06:09] LABS: Troponin I 0.063 ng/mL (0.000-0.034)
[2018-05-26] MEDS: CARVEDILOL 3.125 MG TAB PO SCH (06:19)
[2018-05-26] MEDS: INSULIN ASPART 100 UNIT/ML 1 ML 10 ML VIAL SQ SCH ×4 (06:19→22:46)
[2018-05-26] MEDS: SODIUM CHLORIDE 0.9% 1,000 ML IV SCH ×3 (06:20→20:18)
[2018-05-26 06:27] LABS: Appearance,Urine Cloudy (Clear); Bilirubin,Urine Negative (Negative); Blood,Urine Trace (Negative); Color,Urine Yellow; Glucose,Urine (UA) 1+ (Negative); Ketones,Urine Negative (Negative); Leukocyte Esterase,Urine Large (Negative); Mucus,Urine Rare /hpf; Nitrite,Urine Negative (Negative); PH, Urine 6.5 (5.0-8.0); Protein,Urine Trace (Negative); RBC,Urine 3 /hpf (0-5); Specific Gravity,Urine 1.015 (1.001-1.035); Squamous Epithelial Cell,Urine 2 /hpf (0-4); Urobilinogen,Urine <2.0 mg/dL (<2.0); WBC,Urine >182 /hpf (0-5)
[2018-05-26] MEDS: POLYETHYLENE GLYCOL 3350 17 GM POWD.PACK PO SCH (08:31)
[2018-05-26] MEDS: FAMOTIDINE 20 MG TAB PO SCH (08:57)
[2018-05-26] MEDS: ALLOPURINOL 100 MG TAB PO SCH (08:57)
[2018-05-26] MEDS: CLOPIDOGREL 75 MG TAB PO SCH (08:57)
[2018-05-26] MEDS: PREGABALIN 50 MG CAP PO SCH (08:57)
[2018-05-26] MEDS: DICYCLOMINE 10 MG CAP PO SCH ×4 (08:57→20:19)
[2018-05-26] MEDS: OXYBUTYNIN XL 5 MG TAB.ER.24 PO SCH (08:57)
[2018-05-26] MEDS: ASPIRIN 81 MG PO SCH (08:57)
[2018-05-26] MEDS: CLIDINIUM-chlordiazePOXIDE (2.5-5 MG) CAP PO SCH (08:57)
[2018-05-26] MEDS: NYSTATIN 100,000 UNIT/GM POWD 15 GM TOPICAL SCH ×2 (08:58→20:19)
[2018-05-26] MEDS ORDERED: ASPIRIN 325 MG TAB PO SCH (09:00)
[2018-05-26] MEDS ORDERED: NON-FORMULARY DRUG (Cranberry Fruit Extract [Cranberry] 500 MG) PO SCH (09:00)
--- NOTE | 2018-05-26 09:31 | P.CRDCN ---
History of Present Illness Consult date: 05/26/18 Requesting physician: Jose Alberto Wong Consult reason: chest pain Chief complaint: Abdominal pain, diarrhea, chest pain History of present illness: This is a pleasant 82-year-old female with known history of coronary artery disease and prior bypass surgery, patient also has history of prior PCI, hypertension, diabetes, hyperlipidemia, she states that she used to follow with Dr. Pratt in the office, but has not seen him for several years according to the patient. She does reside in an extended care facility. Most recent hospitalization was in September 2016 her echo at that time showed an ejection fraction of 50-55%. Patient presented to [facility] mainly with symptoms of abdominal pain, she states that she was having episodes of diarrhea at home. Patient was also complaining of some midsternal chest pressure and heaviness. According to the patient she has not off and on almost on a daily basis since her bypass surgery. Patient is also complaining of generalized aches and pains in her lower extremities, she does state that she had a low- grade temperature at home. Complaining also of significant dysuria and urinary frequency. A CT of the abdomen and pelvis was performed at [place] which revealed possible cystitis. UA showed positive UTI. Chest x-ray did not reveal any acute abnormality. White blood cell count at [place] 21.0, hemoglobin 13, platelet count 3:15. Sodium 138, potassium 4.4, BUN 13 creatinine 0.5. Troponin 0.09 BNP level 3300 magnesium 1.4. Because of the abnormality in troponin, patient was transferred here to [facility]. Subsequent labs drawn here, white blood cell count 20.7 and 14.7, hemoglobin 10.9, platelet count 283. Sodium 139, potassium 3.9, BUN 13 and creatinine 0.5. Blood glucose on arrival here 353, plasma lactic acid 3.1. Troponins 0.07 , 0.05, 0.06. Stool for occult blood is positive. At the time of my examination this morning, patient continues to complain of significant abdominal discomfort. She also complains of bilateral leg pain. At present she denies any chest discomfort. EKG shows a normal sinus rhythm with nonspecific ST-T wave changes. Past Medical History Past Medical History: Coronary Artery Disease (CAD), Chest Pain / Angina, Diabetes Mellitus, Hyperlipidemia, Hypertension, Myocardial Infarction (WA), Renal Disease Additional Past Medical History / Comment(s): Abdominal pain chronic for past 3 yrs, IBS, diverticular dx, colon spasms, [place] 05/04/16, "leaky heart valve", NIDDM type II, peripheral neuropathy bilateral feet and alittle in bilateral hands, nephrolithiasis, insomnia, UTIs, arthritis R knee, bilateral cataracts with L eye worse. Last Myocardial Infarction Date:: 05/04/16 History of Any Multi-Drug Resistant Organisms: VRE Date of last positivie culture/infection: 10/04/16 MDRO Source:: VRE URINE Past Surgical History: Coronary Bypass/CABG, Heart Catheterization With Stent, Orthopedic Surgery Additional Past Surgical History / Comment(s): 1999 CABG 3 vessel, PCI with stent 2012 and PCI with stent 05/04/16 at [facility], colonoscopies/egd's Past Anesthesia/Blood Transfusion Reactions: No Reported Reaction Date of Last Stent Placement:: 05/04/16 Past Psychological History: Anxiety Smoking Status: Never smoker Past Alcohol Use History: None Reported Past Drug Use History: None Reported - Past Family History Father Family Medical History: Cancer Additional Family Medical History / Comment(s): Father of lung cancer at the age of 68yrs. He was a smoker. Mother Family Medical History: No Reported History Additional Family Medical History / Comment(s): Mother was healthy and at the age of 87yrs. Medications and Allergies Home Medications Medication Instructions Recorded Confirmed Type Hydrochlorothiazide [Hydrodiuril] 12.5 mg PO DAILY 04/11/14 05/25/18 History Acetaminophen [Tylenol] 1,000 mg PO TID 10/04/16 05/25/18 History Carvedilol [Coreg] 3.125 mg PO DAILY 10/04/16 05/25/18 History Clopidogrel Bisulfate [Plavix] 75 mg PO DAILY 10/04/16 05/25/18 History Allopurinol [Zyloprim] 100 mg PO DAILY 05/25/18 05/25/18 History Aspirin 81 mg PO DAILY 05/25/18 05/25/18 History Bisacodyl 10 mg RECTAL DAILY PRN 05/25/18 05/25/18 History Cholecalciferol [Vitamin D3] 5,000 unit PO DAILY 05/25/18 05/25/18 History Cranberry Fruit Extract [Cranberry] 500 mg PO DAILY 05/25/18 05/25/18 History Magnesium Hydroxide [Milk of 2,400 mg PO DAILY PRN 05/25/18 05/25/18 History Magnesia] Mirtazapine [Remeron] 22.5 mg PO HS 05/25/18 05/25/18 History Nystatin [Nystop] 1 applic TOPICAL BID 05/25/18 05/25/18 History Ondansetron Odt [Zofran Odt] 4 mg PO Q12HR PRN 05/25/18 05/25/18 History Oxybutynin Chloride [Ditropan XL] 5 mg PO DAILY 05/25/18 05/25/18 History Polyethylene Glycol 3350 [Miralax] 17 gm PO DAILY 05/25/18 05/25/18 History Pregabalin [Lyrica] 50 mg PO DAILY 05/25/18 05/25/18 History Ranitidine HCl 150 mg PO DAILY 05/25/18 05/25/18 History chlordiazePOXIDE/CLIDINIUM BR 1 cap PO DAILY 05/25/18 05/25/18 History glipiZIDE [Glucotrol] 2.5 mg PO AC-BRKFST 05/25/18 05/25/18 History Allergies Allergy/AdvReac Type Severity Reaction Status Date / Time ciprofloxacin [From Cipro] AdvReac Nausea & Verified 05/25/18 16:32 Vomiting & Diarrhea levofloxacin [From Levaquin] AdvReac Nausea & Verified 05/25/18 16:32 Vomiting & Diarrhea Physical Exam Vitals: Vital Signs Temp Pulse Pulse Resp BP BP Pulse Ox 05/26/18 07:34 99.1 F 89 16 146/65 94 L 05/26/18 05:09 98.3 F 101 H 15 178/81 93 L 05/26/18 02:05 98.2 F 95 15 137/64 93 L 05/25/18 22:26 98.3 F 05/25/18 20:00 99.1 F 99 15 145/77 95 05/25/18 16:00 99.2 F 88 16 130/60 98 05/25/18 15:00 99 18 157/86 98 05/25/18 14:30 18 150/102 99 05/25/18 14:00 18 153/77 99 05/25/18 13:30 18 146/72 99 05/25/18 13:13 99.2 F 90 18 146/72 99 05/25/18 13:00 18 149/74 99 Intake and Output 05/25/18 05/26/18 05/26/18 22:59 06:59 14:59 Intake Total 315.333 Output Total 1 500 Balance 314.333 -500 Intake: Intake, IV Titration 75.333 Amount Heparin Sod,Pork in 0.45% 75.333 NaCl 25,000 unit In 0.45 % NaCl 1 250ml.bag @ 11. 191 UNITS/KG/HR 10 mls/hr IV .Q24H [facility] Rx#: [id number] Oral 240 Output: Urine 500 Urine/Stool Mix 1 Other: Voiding Method Bedpan Bedpan Bedpan Diaper Diaper Diaper # Voids 3 # Bowel Movements 2 2 Weight 96 kg PHYSICAL EXAMINATION: GENERAL: 82-year-old female in no acute distress at the time of my examination HEENT: Head is atraumatic, normocephalic. Pupils equal, round. Sclera anicteric. Conjunctiva are clear. Mucous membranes of the mouth are moist. Neck is supple. There is no elevated jugular venous pressure. No carotid bruit is heard. HEART EXAMINATION: Heart S1 and S2 with soft systolic murmur is heard. CHEST EXAMINATION: Lungs are clear with diminished air entry to the bases. ABDOMEN: Soft, positive for generalized tenderness. Bowel sounds are heard. No organomegaly noted. EXTREMITIES: 1+ peripheral pulses with no evidence of peripheral edema and no calf tenderness noted. NEUROLOGIC patient is awake, alert and oriented 3 . . Results 05/26/18 03:57 05/25/18 15:45 Cardiac Enzymes 05/25/18 05/25/18 05/25/18 Range/Units 15:45 15:45 21:14 AST 23 (14-36) U/L CK-MB (CK-2) 0.7 1.4 (0.0-2.4) ng/mL Troponin I 0.070 H* 0.058 H* (0.000-0.034) ng/mL 05/26/18 Range/Units 03:57 AST (14-36) U/L CK-MB (CK-2) 2.0 (0.0-2.4) ng/mL Troponin I 0.063 H* (0.000-0.034) ng/mL Coagulation 05/25/18 05/25/18 05/26/18 Range/Units 15:45 21:34 03:57 PT 11.2 11.8 (9.0-12.0) sec APTT 48.7 H 88.8 H 68.4 H (22.0-30.0) sec Lipids 05/26/18 Range/Units 03:57 Triglycerides 100 (<150) mg/dL Cholesterol 166 (<200) mg/dL HDL Cholesterol 41 (40-60) mg/dL CBC 05/25/18 05/26/18 Range/Units 15:45 03:57 WBC 20.7 H 14.7 H (3.8-10.6) k/uL RBC 3.88 3.59 L (3.80-5.40) m/uL Hgb 11.8 10.9 L (11.4-16.0) gm/dL Hct 37.7 35.2 (34.0-46.0) % Plt Count 293 283 (150-450) k/uL Comprehensive Metabolic Panel 05/25/18 Range/Units 15:45 Sodium 139 (137-145) mmol/L Potassium 3.9 (3.5-5.1) mmol/L Chloride 106 (98-107) mmol/L Carbon Dioxide 25 (22-30) mmol/L BUN 13 (7-17) mg/dL Creatinine 0.52 (0.52-1.04) mg/dL Glucose 327 H (74-99) mg/dL Calcium 8.6 (8.4-10.2) mg/dL AST 23 (14-36) U/L ALT 16 (9-52) U/L Alkaline Phosphatase 64 (38-126) U/L Total Protein 6.7 (6.3-8.2) g/dL Albumin 3.5 (3.5-5.0) g/dL Current Medications Generic Name Dose Route Start Last Admin Trade Name Freq PRN Reason Stop Dose Admin Acetaminophen 650 mg 05/25/18 20:26 05/25/18 21:14 Tylenol Tab PO 650 mg Q4HR PRN Administration Fever and/ or Pain Allopurinol 100 mg 05/26/18 09:00 05/26/18 08:57 Zyloprim PO 100 mg DAILY GEE Administration Aspirin 81 mg 05/26/18 09:00 05/26/18 08:57 Aspirin PO 81 mg DAILY GEE Administration Bisacodyl 10 mg 05/25/18 19:04 Dulcolax RECTAL DAILY PRN Constipation Carvedilol 3.125 mg 05/26/18 07:30 05/26/18 06:19 Coreg PO 3.125 mg AC-BRKFST GEE Administration Chlordiazepoxide/Clidinium 1 each 05/26/18 09:00 05/26/18 08:57 Librax PO 1 each DAILY GEE Administration Clopidogrel Bisulfate 75 mg 05/26/18 09:00 05/26/18 08:57 Plavix PO 75 mg DAILY GEE Administration Dicyclomine HCl 10 mg 05/25/18 22:00 05/26/18 08:57 Bentyl PO 10 mg QID GEE Administration Famotidine 20 mg 05/26/18 09:00 05/26/18 08:57 Pepcid PO 20 mg DAILY GEE Administration Glipizide 2.5 mg 05/26/18 07:30 05/26/18 08:58 Glucotrol PO 2.5 mg AC-BRKFST GEE Administration Heparin Sodium (Porcine) 0 unit 05/25/18 13:16 Heparin IV PER PROTOCOL PRN Low PTT Protocol Heparin Sodium/Sodium Chloride 250 mls @ 10 mls/hr 05/25/18 13:30 05/25/18 22 :22 25,000 unit/ Sodium Chloride IV 9.19 units/kg/hr .Q24H GEE 8.21 mls/hr Titration Protocol 11.191 UNITS/KG/HR Sodium Chloride 1,000 mls @ 125 mls/hr 05/25/18 13:30 05/26/18 06:20 Saline 0.9% IV 125 mls/hr .Q8H GEE Administration Ceftriaxone Sodium 1,000 mg/ 50 mls @ 100 mls/hr 05/25/18 21:00 05/26/18 09: 00 Sodium Chloride IVPB 100 mls/hr Q12HR GEE Administration Insulin Aspart 0 unit 05/25/18 21:00 05/26/18 06:19 Novolog SQ 3 unit ACHS GEE Administration Protocol Magnesium Hydroxide 2,400 mg 05/25/18 19:04 Milk Of Magnesia PO DAILY PRN Constipation Mirtazapine 22.5 mg 05/25/18 21:00 05/25/18 21:14 Remeron PO 22.5 mg HS GEE Administration Nitroglycerin 0.4 mg 05/25/18 13:18 Nitrostat SUBLINGUAL Q5M PRN Chest Pain Nystatin 1 applic 05/25/18 21:00 05/26/18 08:58 Mycostatin Powder TOPICAL 1 applic BID GEE Administration Ondansetron HCl 4 mg 05/25/18 19:04 Zofran Odt PO Q12HR PRN Nausea Oxybutynin Chloride 5 mg 05/26/18 09:00 05/26/18 08:57 Ditropan Xl PO 5 mg DAILY GEE Administration Polyethylene Glycol 17 gm 05/26/18 09:00 05/26/18 08:31 Miralax PO Not Given DAILY GEE Pregabalin 50 mg 05/26/18 09:00 05/26/18 08:57 Lyrica PO 50 mg DAILY GEE Administration Intake and Output 05/25/18 05/26/18 05/26/18 22:59 06:59 14:59 Intake Total 315.333 Output Total 1 500 Balance 314.333 -500 Intake: Intake, IV Titration 75.333 Amount Heparin Sod,Pork in 0.45% 75.333 NaCl 25,000 unit In 0.45 % NaCl 1 250ml.bag @ 11. 191 UNITS/KG/HR 10 mls/hr IV .Q24H [facility] Rx#: [id number] Oral 240 Output: Urine 500 Urine/Stool Mix 1 Other: Voiding Method Bedpan Bedpan Bedpan Diaper Diaper Diaper # Voids 3 # Bowel Movements 2 2 Weight 96 kg 05/26/18 03:57 05/25/18 15:45 EKG Interpretations (text) EKG shows a normal sinus rhythm with nonspecific ST-T wave changes Assessment and Plan Plan: Assessment and plan #1 symptoms of midsternal chest pressure and heaviness, EKG shows normal sinus rhythm with no acute changes. Troponins 0.09, 0.07, 0.05, .06. Possible acute coronary syndrome. #2 abdominal pain with associated diarrhea, and evidence of a urinary tract infection, lactic acid level positive, white blood cell count elevated. #3 known history of coronary artery disease with prior bypass surgery and PCI #4 hypertension #5 diabetes #6 hyperlipidemia #7 anemia, stool for occult blood is positive. Hemoglobin at [place] 13, hemoglobin here 10.9 #8 osteoarthritis Plan We will repeat an echocardiogram with Doppler study, most recent echo was performed in September of last year which revealed a normal left ventricular systolic function. Continue antibiotics at this time. Continue maximum medical therapy with baby aspirin, Coreg, Plavix, add a small dose of statin. Further recommendations to follow. DNP note has been reviewed, I agree with a documented findings and plan of care. Patient was seen and examined.
[2018-05-26 11:42] LABS: Glucose,Whole Blood 311 mg/dL (75-99)
[2018-05-26] MEDS: ISOSORBIDE MONONITRATE ER 30 MG TAB.ER.24H PO SCH (12:49)
[2018-05-26] MEDS: HEPARIN SOD,PORK IN 0.45% NACL 25,000 UNIT in 0.45% NACL 1 250ML.BAG IV SCH (15:18)
[2018-05-26 17:03] LABS: Glucose,Whole Blood 143 mg/dL (75-99)
--- NOTE | 2018-05-26 18:49 | ECHOF ---
Referral Reason:chest pain MEASUREMENTS -------- HEIGHT: 170.2 cm WEIGHT: 95.7 kg BP: 146/65 RVIDd: 3.3 cm (< 3.3) IVSd: 1.3 cm (0.6 - 1.1) LVIDd: 4.4 cm (3.9 - 5.3) LVPWd: 1.2 cm (0.6 - 1.1) IVSs: 1.4 cm LVIDs: 4.2 cm LVPWs: 1.2 cm LA Diam: 4.3 cm (2.7 - 3.8) LAESV Index (A-L): 49.02 ml/m Ao Diam: 3.3 cm (2.0 - 3.7) AV Cusp: 1.5 cm (1.5 - 2.6) LA Diam: 4.9 cm (2.7 - 3.8) MV EXCURSION: 18.395 mm (> 18.000) MV EF SLOPE: 74 mm/s (70 - 150) EPSS: 1.4 cm MV E Romario: 0.76 m/s MV DecT: 111 ms MV A Romario: 0.69 m/s MV E/A Ratio: 1.11 AV maxP.54 mmHg AV maxP.54 mmHg AV meanP.26 mmHg AR PHT: 312 ms RAP: 5.00 mmHg RVSP: 47.00 mmHg FINDINGS -------- Sinus rhythm. This was a technically adequate study. The left ventricular size is normal. There is mild concentric left ventricular hypertrophy. Overa ll left ventricular systolic function is low-normal with, an EF between 50 - 55 %. The right ventricle is normal in size. The left atrium is markedly dilated. LA is severely dilated >40 ml/m2 The right atrial size is normal. Trace amount of aortic regurgitation. Peak/mean gradient across the Aortic Valve is 10.54mmHg / 5. 26mmHg. Mild mitral annular calcification present. Mild mitral regurgitation is present. Mild tricuspid regurgitation present. There is mild pulmonary hypertension. The right ventricular systolic pressure, as measured by Doppler, is 47.00mmHg. Trace/mild (physiologic) pulmonic regurgitation. The aortic root size is normal. There is no pericardial effusion. CONCLUSIONS -------- 1. The left ventricular size is normal. 2. There is mild concentric left ventricular hypertrophy. 3. Overall left ventricular systolic function is low-normal with, an EF between 50 - 55 %. 4. The right ventricle is normal in size. 5. The left atrium is markedly dilated. 6. LA is severely dilated >40 ml/m2 7. The right atrial size is normal. 8. Trace amount of aortic regurgitation. 9. Peak/mean gradient across the Aortic Valve is 10.54mmHg / 5.26mmHg. 10. Mild mitral annular calcification present. 11. Mild mitral regurgitation is present. 12. Mild tricuspid regurgitation present. 13. There is mild pulmonary hypertension. 14. The right ventricular systolic pressure, as measured by Doppler, is 47.00mmHg. 15. Trace/mild (physiologic) pulmonic regurgitation. 16. The aortic root size is normal. 17. There is no pericardial effusion. NEPHROLOGY NURSE: Ilda Bloom RDCS
[2018-05-26 19:13] LABS: Hemoglobin A1C 8.3 % (4.0-6.0)
[2018-05-26] MEDS: MIRTAZAPINE 15 MG TAB PO SCH (20:19)
[2018-05-26] MEDS: ACETAMINOPHEN TAB 325 MG TAB PO PRN (20:19)
[2018-05-26 20:54] LABS: Glucose,Whole Blood 231 mg/dL (75-99)
[2018-05-26] MEDS ORDERED: ATORVASTATIN 40 MG TAB PO SCH (21:00)
[2018-05-26 22:19] LABS: Glucose,Whole Blood 201 mg/dL (75-99)
--- NOTE | 2018-05-27 03:20 | PN ---
PROGRESS NOTE DATE OF SERVICE: May 26, 2018. PRESENT COMPLAINT: Chest pain. Abdominal pain. INTERVAL HISTORY: This patient presented with unstable angina with troponin leak and also acute on chronic abdominal pain. Patient is tolerating a diet. No further chest pain. Medications adjusted by Cardiology. Awaiting Gastroenterology input. Sitting up in bed. REVIEW OF SYSTEMS: Done for constitutional, cardiovascular, GI, pulmonary and relevant findings as above. CURRENT MEDICATIONS: Reviewed. PHYSICAL EXAMINATION: VITAL SIGNS: Temperature 98.4, pulse 80, respiration 16, blood pressure 140/76, pulse ox 97% on room air. GENERAL APPEARANCE: Sitting up, more comfortable. EYES: Pupils equal. Conjunctivae normal. NECK: JVD not raised. Mass not palpable. RESPIRATORY: Effort normal. LUNGS: Clear. CARDIOVASCULAR: 1st and 2nd sounds normal. No edema. ABDOMEN: Soft, minimal tenderness. Liver and spleen not palpable. PSYCHIATRY: Alert and oriented times three. Mood and affect normal. INVESTIGATIONS: Accu-Cheks are noted. White count 14.7, hemoglobin 10.9, potassium 8.3. Troponin 0.063. ASSESSMENT: 1. Acute coronary syndrome with positive troponin, possibly unstable angina. 2. Acute urinary tract infection, probably from cystitis. 3. Coronary artery disease. 4. Diabetes mellitus type 2 on oral hypoglycemic, diabetic peripheral neuropathy. 5. Hyperlipidemia. 6. Essential hypertension. 7. Irritable bowel syndrome. 8. Colonic diverticulosis. 9. Chronic lung spasms, now improved. 10.Chronic nephrolithiasis. 11.Chronic insomnia. 12.Obesity; BMI 30.9. PLAN: The patient is doing better on the current medications. Continue current medication and treatment plan. Await input from Gastroenterology. Care was discussed with the patient. The patient tolerating a diet better. MMODL / IJN: [id number] /
[2018-05-27 03:27] VITALS: RESP 16
[2018-05-27] MEDS: SODIUM CHLORIDE 0.9% 1,000 ML IV SCH ×2 (04:48→11:08)
[2018-05-27 06:04] LABS: Glucose,Whole Blood 162 mg/dL (75-99)
[2018-05-27] MEDS: INSULIN ASPART 100 UNIT/ML 1 ML 10 ML VIAL SQ SCH ×2 (06:25→12:56)
[2018-05-27] MEDS: CARVEDILOL 3.125 MG TAB PO SCH (06:26)
[2018-05-27 06:33] LABS: INR 0.9 (<1.2); Partial Thromboplastin Time 49.4 sec (22.0-30.0); Prothrombin Time 10.2 sec (9.0-12.0)
--- NOTE | 2018-05-27 07:26 | P.CONS ---
History of Present Illness - Reason for Consult Consult date: 05/26/18 Abdominal pain Requesting physician: Jose Alberto Wong - Chief Complaint Chest pain - History of Present Illness The patient is an 82-year-old female with multiple medical morbidities including diabetes mellitus, neuropathy, hypertension, hyperlipidemia, irritable bowel syndrome and diverticulosis who presented to the hospital with chest pain. The patient reports new onset of chest pain which she decided needed further evaluation and presented to the emergency department seen by the cardiology service. The patient also reports that she has intermittent abdominal pain. She reports that this is sharp in nature and generally below the belly button. She states that this has been present intermittently over the past 3 years. She reports that intermittently she will have diarrhea in association with the abdominal pain but in general has more constipation. She reports that her last EGD and colonoscopy were approximately 10 years ago. On presentation she was found to have negative testing for C. diff and positive testing for occult blood. She denies any signs or symptoms of GI bleeding at this time. Currently she is seen lying in bed tolerating her diet. Review of Systems REVIEW OF SYSTEMS: CONSTITUTIONAL: Denies any fevers, chills, weight change or fatigue. CARDIOVASCULAR: Denies any chest pain currently but did report chest pain on presentation, palpitations high or low blood pressures RESPIRATORY: Denies any shortness of breath, hemoptysis or cough. GENITOURINARY: No dysuria or hematuria. MUSCULOSKELETAL: No weakness reported. SKIN: Denies any new rashes or lesions, jaundice or pallor. PSYCHIATRIC: No recent depression or anxiety. NEUROLOGY: Denies headache, denies any new focal deficits. EARS/NOSE/THROAT: No recent hearing change, congestion, nasal discharge or sore throat. EYES: No pain in eyes, discharge or change in vision. GASTROINTESTINAL: As per HPI. Past Medical History Past Medical History: Coronary Artery Disease (CAD), Chest Pain / Angina, Diabetes Mellitus, Hyperlipidemia, Hypertension, Myocardial Infarction (OK), Renal Disease Additional Past Medical History / Comment(s): Abdominal pain chronic for past 3 yrs, IBS, diverticular dx, colon spasms, [place] 05/04/16, "leaky heart valve", NIDDM type II, peripheral neuropathy bilateral feet and alittle in bilateral hands, nephrolithiasis, insomnia, UTIs, arthritis R knee, bilateral cataracts with L eye worse. 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 Past Surgical History: Coronary Bypass/CABG, Heart Catheterization With Stent, Orthopedic Surgery Additional Past Surgical History / Comment(s): 1999 CABG 3 vessel, PCI with stent 2012 and PCI with stent 05/04/16 at [facility], colonoscopies/egd's Past Anesthesia/Blood Transfusion Reactions: No Reported Reaction Date of Last Stent Placement:: 05/04/16 Past Psychological History: Anxiety Smoking Status: Never smoker Past Alcohol Use History: None Reported Past Drug Use History: None Reported - Past Family History Father Family Medical History: Cancer Additional Family Medical History / Comment(s): Father of lung cancer at the age of 68yrs. He was a smoker. Mother Family Medical History: No Reported History Additional Family Medical History / Comment(s): Mother was healthy and at the age of 87yrs. Medications and Allergies Home Medications Medication Instructions Recorded Confirmed Type Hydrochlorothiazide [Hydrodiuril] 12.5 mg PO DAILY 04/11/14 05/25/18 History Acetaminophen [Tylenol] 1,000 mg PO TID 10/04/16 05/25/18 History Carvedilol [Coreg] 3.125 mg PO DAILY 10/04/16 05/25/18 History Clopidogrel Bisulfate [Plavix] 75 mg PO DAILY 10/04/16 05/25/18 History Allopurinol [Zyloprim] 100 mg PO DAILY 05/25/18 05/25/18 History Aspirin 81 mg PO DAILY 05/25/18 05/25/18 History Bisacodyl 10 mg RECTAL DAILY PRN 05/25/18 05/25/18 History Cholecalciferol [Vitamin D3] 5,000 unit PO DAILY 05/25/18 05/25/18 History Cranberry Fruit Extract [Cranberry] 500 mg PO DAILY 05/25/18 05/25/18 History Magnesium Hydroxide [Milk of 2,400 mg PO DAILY PRN 05/25/18 05/25/18 History Magnesia] Mirtazapine [Remeron] 22.5 mg PO HS 05/25/18 05/25/18 History Nystatin [Nystop] 1 applic TOPICAL BID 05/25/18 05/25/18 History Ondansetron Odt [Zofran Odt] 4 mg PO Q12HR PRN 05/25/18 05/25/18 History Oxybutynin Chloride [Ditropan XL] 5 mg PO DAILY 05/25/18 05/25/18 History Polyethylene Glycol 3350 [Miralax] 17 gm PO DAILY 05/25/18 05/25/18 History Pregabalin [Lyrica] 50 mg PO DAILY 05/25/18 05/25/18 History Ranitidine HCl 150 mg PO DAILY 05/25/18 05/25/18 History chlordiazePOXIDE/CLIDINIUM BR 1 cap PO DAILY 05/25/18 05/25/18 History glipiZIDE [Glucotrol] 2.5 mg PO AC-BRKFST 05/25/18 05/25/18 History Allergies Allergy/AdvReac Type Severity Reaction Status Date / Time ciprofloxacin [From Cipro] AdvReac Nausea & Verified 05/25/18 16:32 Vomiting & Diarrhea levofloxacin [From Levaquin] AdvReac Nausea & Verified 05/25/18 16:32 Vomiting & Diarrhea Physical Exam Vitals: Vital Signs Temp Pulse Resp BP Pulse Ox 05/26/18 20:22 93 L 05/26/18 15:22 99.4 F 91 16 146/64 96 05/26/18 11:42 98.4 F 88 16 140/76 97 05/26/18 07:34 99.1 F 89 16 146/65 94 L 05/26/18 05:09 98.3 F 101 H 15 178/81 93 L 05/26/18 02:05 98.2 F 95 15 137/64 93 L Intake and Output 05/26/18 05/26/18 05/27/18 14:59 22:59 06:59 Intake Total 240 1604.023 Output Total 700 300 Balance -460 1304.023 Intake: Intake, IV Titration 1364.023 Amount Heparin Sod,Pork in 0.45% 139.023 NaCl 25,000 unit In 0.45 % NaCl 1 250ml.bag @ 11. 191 UNITS/KG/HR 10 mls/hr IV .Q24H [facility] Rx#: [id number] Sodium Chloride 0.9% 1, 1125 000 ml @ 125 mls/hr IV . Q8H [facility] Rx#:[id number] cefTRIAXone 1,000 mg In 100 Sodium Chloride 0.9% 50 ml @ 100 mls/hr IVPB Q12HR [facility] Rx#:[id number] Oral 240 240 Output: Urine 700 300 Other: Voiding Method Bedpan Bedpan Diaper Diaper # Voids 1 # Bowel Movements 1 On physical examination, patient appears comfortable in no apparent distress. HEAD: Normocephalic, atraumatic. EYES: No scleral icterus. No conjunctival injection. MOUTH: No lesions, tongue midline. NECK: Trachea midline, no gross abnormalities. CHEST: Clear to auscultation with no wheezing or rhonchi appreciated. HEART: Regular rate and rhythm. ABDOMEN: Soft, obese. Bowel sounds are positive. No organomegaly. No guarding or rigidity. EXTREMITIES: No pedal edema. SKIN: No rashes, no jaundice. NEUROLOGIC: Alert and oriented x3. No focal deficits. Results CBC & Chem 7: 05/26/18 03:57 05/25/18 15:45 Labs: Abnormal Lab Results - Last 24 Hours (Table) 05/26/18 05/26/18 05/26/18 Range/Units 03:57 03:57 03:57 WBC 14.7 H (3.8-10.6) k/uL RBC 3.59 L (3.80-5.40) m/uL Hgb 10.9 L (11.4-16.0) gm/dL MCHC 30.9 L (31.0-37.0) g/dL Neutrophils # 10.9 H (1.3-7.7) k/uL APTT 68.4 H (22.0-30.0) sec POC Glucose (mg/dL) (75-99) mg/dL Hemoglobin A1c (4.0-6.0) % Total Creatine Kinase 225 H (30-135) U/L Troponin I 0.063 H* (0.000-0.034) ng/mL LDL Cholesterol, Calc (0-99) mg/dL Urine Appearance (Clear) Urine Protein (Negative) Urine Glucose (UA) (Negative) Urine Blood (Negative) Ur Leukocyte Esterase (Negative) Urine WBC (0-5) /hpf Urine Mucus (None) /hpf 05/26/18 05/26/18 05/26/18 Range/Units 03:57 03:57 05:00 WBC (3.8-10.6) k/uL RBC (3.80-5.40) m/uL Hgb (11.4-16.0) gm/dL MCHC (31.0-37.0) g/dL Neutrophils # (1.3-7.7) k/uL APTT (22.0-30.0) sec POC Glucose (mg/dL) (75-99) mg/dL Hemoglobin A1c 8.3 H (4.0-6.0) % Total Creatine Kinase (30-135) U/L Troponin I (0.000-0.034) ng/mL LDL Cholesterol, Calc 105 H (0-99) mg/dL Urine Appearance Cloudy H (Clear) Urine Protein Trace H (Negative) Urine Glucose (UA) 1+ H (Negative) Urine Blood Trace H (Negative) Ur Leukocyte Esterase Large H (Negative) Urine WBC >182 H (0-5) /hpf Urine Mucus Rare H (None) /hpf 05/26/18 05/26/18 05/26/18 Range/Units 05:56 11:08 16:33 WBC (3.8-10.6) k/uL RBC (3.80-5.40) m/uL Hgb (11.4-16.0) gm/dL MCHC (31.0-37.0) g/dL Neutrophils # (1.3-7.7) k/uL APTT (22.0-30.0) sec POC Glucose (mg/dL) 217 H 311 H 143 H (75-99) mg/dL Hemoglobin A1c (4.0-6.0) % Total Creatine Kinase (30-135) U/L Troponin I (0.000-0.034) ng/mL LDL Cholesterol, Calc (0-99) mg/dL Urine Appearance (Clear) Urine Protein (Negative) Urine Glucose (UA) (Negative) Urine Blood (Negative) Ur Leukocyte Esterase (Negative) Urine WBC (0-5) /hpf Urine Mucus (None) /hpf 05/26/18 05/26/18 Range/Units 20:53 22:18 WBC (3.8-10.6) k/uL RBC (3.80-5.40) m/uL Hgb (11.4-16.0) gm/dL MCHC (31.0-37.0) g/dL Neutrophils # (1.3-7.7) k/uL APTT (22.0-30.0) sec POC Glucose (mg/dL) 231 H 201 H (75-99) mg/dL Hemoglobin A1c (4.0-6.0) % Total Creatine Kinase (30-135) U/L Troponin I (0.000-0.034) ng/mL LDL Cholesterol, Calc (0-99) mg/dL Urine Appearance (Clear) Urine Protein (Negative) Urine Glucose (UA) (Negative) Urine Blood (Negative) Ur Leukocyte Esterase (Negative) Urine WBC (0-5) /hpf Urine Mucus (None) /hpf Microbiology - Last 24 Hours (Table) 05/25/18 15:45 Blood Culture - Preliminary Blood No Growth after 24 hours 05/26/18 05:00 Urine Culture - Preliminary Urine,Voided Assessment and Plan (1) Abdominal pain Narrative/Plan: Patient with a known history of irritable bowel syndrome with constipation who presents with multiple complaints including abdominal pain. She reports the pain has been present intermittently over the past 3 years and has been evaluated in the past with EGD and colonoscopy approximately 2 years ago. The pain is intermittent in the lower abdomen and can be made worse with food. No change in the quality of pain, this is likely consistent with her known history of functional bowel disorder. Current Visit: Yes Status: Acute Code(s): R10.9 - UNSPECIFIED ABDOMINAL PAIN SNOMED Code(s): 81354357 Plan: Supportive care Okay for diet Agree with Bentyl, will increase dose to 20 mg 3 times a day Continue bowel regimen with MiraLAX daily, and Dulcolax as needed for constipation Continue to monitor abdominal pain and stool output No plans for endoscopic evaluation at this time Thank you for allowing us to participate in the care of the patient, we will continue to follow
[2018-05-27 08:07] LABS: Basophils % (A) 0 %; Eosinophils # (A) 1.6 k/uL (0-0.7); Eosinophils % (A) 14 %; HCT 33.5 % (34.0-46.0); HGB 10.6 gm/dL (11.4-16.0); Hypochromasia Moderate; Lymphocytes # (A) 2.8 k/uL (1.0-4.8); Lymphocytes % (A) 26 %; MCH 31.4 pg (25.0-35.0); MCHC 31.5 g/dL (31.0-37.0); MCV 99.5 fL (80.0-100.0); Macrocytosis Slight; Mean Platelet Volume 7.6; Monocytes # (A) 0.6 k/uL (0-1.0); Monocytes % (A) 5 %; Neutrophils # (A) 5.6 k/uL (1.3-7.7); Neutrophils % (A) 52 %; Platelet Count 270 k/uL (150-450); RBC 3.37 m/uL (3.80-5.40); RDW 14.3 % (11.5-15.5); WBC 10.8 k/uL (3.8-10.6)
[2018-05-27 08:12] LABS: ALT 22 U/L (9-52); AST 18 U/L (14-36); Albumin 2.8 g/dL (3.5-5.0); Alkaline Phosphatase 54 U/L (38-126); Anion Gap 4 mmol/L; Blood Urea Nitrogen 11 mg/dL (7-17); Calcium 8.7 mg/dL (8.4-10.2); Carbon Dioxide 22 mmol/L (22-30); Chloride 113 mmol/L (98-107); Glucose 163 mg/dL (74-99); Potassium 3.8 mmol/L (3.5-5.1); Sodium 139 mmol/L (137-145); Total Bilirubin 0.4 mg/dL (0.2-1.3)
[2018-05-27] MEDS: POLYETHYLENE GLYCOL 3350 17 GM POWD.PACK PO SCH (08:52)
[2018-05-27] MEDS: ASPIRIN 81 MG PO SCH (08:56)
[2018-05-27] MEDS: CLIDINIUM-chlordiazePOXIDE (2.5-5 MG) CAP PO SCH (08:56)
[2018-05-27] MEDS: CLOPIDOGREL 75 MG TAB PO SCH (08:56)
[2018-05-27] MEDS: DICYCLOMINE 20 MG TAB PO SCH ×2 (08:56→16:00)
[2018-05-27] MEDS: ISOSORBIDE MONONITRATE ER 30 MG TAB.ER.24H PO SCH (08:56)
[2018-05-27] MEDS: PREGABALIN 50 MG CAP PO SCH (08:56)
[2018-05-27] MEDS: ALLOPURINOL 100 MG TAB PO SCH (08:56)
[2018-05-27] MEDS: FAMOTIDINE 20 MG TAB PO SCH (08:56)
[2018-05-27] MEDS: OXYBUTYNIN XL 5 MG TAB.ER.24 PO SCH (08:56)
[2018-05-27] MEDS: NYSTATIN 100,000 UNIT/GM POWD 15 GM TOPICAL SCH (08:57)
[2018-05-27 11:08] LABS: Glucose,Whole Blood 141 mg/dL (75-99)
[2018-05-27 11:30] VITALS: BP 164/84; PULSE 84; TEMP 97.6
[2018-05-27] MEDS ORDERED: traMADol 50 MG TAB PO PRN (14:22)
--- NOTE | 2018-05-27 15:32 | P.DS ---
Providers Date of admission: 05/25/18 13:18 Attending physician: Jose Alberto Wong Consults: 05/25/18 13:18 Consult Physician Urgent Consulting Provider: Alejo Valentin Consult Reason/Comments: acs Do you want consulting provider notified?: Yes 05/25/18 21:16 Consult Physician Routine Consulting Provider: David Solis Consult Reason/Comments: abd pain Do you want consulting provider notified?: Yes Primary care physician: Juan Luis Phillips Hospital Course: 82-year-old pleasant female admitted for urinary tract infection minimally elevated troponins patient was also treated for unstable angina. Cardiologydid not recommend any any further intervention the increase her imdurthe patient does have chronic abdominal pain of the left lower quadrant Abdominal pain. Gastric etiology valid the patient is recommending Bentyl. Patient troponin elevation is probably seconded to sepsis from urinary tract infection so far urine cultures are negative patient will be discharged today to subacute rehabilitation with the tramadol for her abdominal pain which is chronic and follow-up with gas and probably as an outpatient Bentyl for her cramping. Ceftin for her urinary tract infection. PHYSICAL EXAMINATION: GENERAL: The patient is alert and oriented x3, not in any acute distress. Well developed, well nourished. HEENT: Pupils are round and equally reacting to light. EOMI. No scleral icterus. No conjunctival pallor. Normocephalic, atraumatic. No pharyngeal erythema. No thyromegaly. CARDIOVASCULAR: S1 and S2 present. No murmurs, rubs, or gallops. PULMONARY: Chest is clear to auscultation, no wheezing or crackles. ABDOMEN: Soft, nontender, nondistended, normoactive bowel sounds. No palpable organomegaly. MUSCULOSKELETAL: No joint swelling or deformity. EXTREMITIES: No cyanosis, clubbing, or pedal edema. NEUROLOGICAL: Gross neurological examination did not reveal any focal deficits. she does have chronic weakness and and the patient doesn't ambulate mostly bedbound SKIN: No rashes. -sepsis secondary to urinary tract infection -Coronary artery disease with mildly elevated troponins elevated troponin secondary to infection rather than primary medical issue -type 2 diabetes mellitus and -Hypertension -irritable Bowel syndrome and chronic abdominal pain chronic generalized deconditioning -Obesity -Hyperlipidemia Patient Condition at Discharge: Serious Plan - Discharge Summary Discharge Rx Participant: No New Discharge Prescriptions: New Atorvastatin [Lipitor] 40 mg PO HS tab Cefuroxime Axetil [Ceftin] 500 mg PO BID 5 Days #10 tab Dicyclomine [Bentyl] 20 mg PO TID tab Isosorbide Mononitrate ER [Imdur] 30 mg PO DAILY tab.er.24h Nitroglycerin Sl Tabs [Nitrostat] 0.4 mg SUBLINGUAL Q5M PRN tab PRN Reason: Chest Pain traMADol HCL [Ultram] 50 mg PO Q4HR PRN 3 Days #18 tab PRN Reason: Pain Continue Hydrochlorothiazide [Hydrodiuril] 12.5 mg PO DAILY Clopidogrel Bisulfate [Plavix] 75 mg PO DAILY Carvedilol [Coreg] 3.125 mg PO DAILY Acetaminophen [Tylenol] 1,000 mg PO TID Aspirin 81 mg PO DAILY Ondansetron Odt [Zofran ODT] 4 mg PO Q12HR PRN PRN Reason: Nausea Nystatin [Nystop] 1 applic TOPICAL BID Bisacodyl 10 mg RECTAL DAILY PRN PRN Reason: Constipation Magnesium Hydroxide [Milk of Magnesia] 2,400 mg PO DAILY PRN PRN Reason: Constipation Cranberry Fruit Extract [Cranberry] 500 mg PO DAILY Cholecalciferol [Vitamin D3] 5,000 unit PO DAILY Ranitidine HCl 150 mg PO DAILY Pregabalin [Lyrica] 50 mg PO DAILY Polyethylene Glycol 3350 [Miralax] 17 gm PO DAILY Oxybutynin Chloride [Ditropan XL] 5 mg PO DAILY Mirtazapine [Remeron] 22.5 mg PO HS glipiZIDE [Glucotrol] 2.5 mg PO AC-BRKFST chlordiazePOXIDE/CLIDINIUM BR 1 cap PO DAILY Allopurinol [Zyloprim] 100 mg PO DAILY Discharge Medication List Hydrochlorothiazide [Hydrodiuril] 12.5 mg PO DAILY 04/11/14 [History] Acetaminophen [Tylenol] 1,000 mg PO TID 10/04/16 [History] Carvedilol [Coreg] 3.125 mg PO DAILY 10/04/16 [History] Clopidogrel Bisulfate [Plavix] 75 mg PO DAILY 10/04/16 [History] Allopurinol [Zyloprim] 100 mg PO DAILY 05/25/18 [History] Aspirin 81 mg PO DAILY 05/25/18 [History] Bisacodyl 10 mg RECTAL DAILY PRN 05/25/18 [History] Cholecalciferol [Vitamin D3] 5,000 unit PO DAILY 05/25/18 [History] Cranberry Fruit Extract [Cranberry] 500 mg PO DAILY 05/25/18 [History] Magnesium Hydroxide [Milk of Magnesia] 2,400 mg PO DAILY PRN 05/25/18 [History] Mirtazapine [Remeron] 22.5 mg PO HS 05/25/18 [History] Nystatin [Nystop] 1 applic TOPICAL BID 05/25/18 [History] Ondansetron Odt [Zofran ODT] 4 mg PO Q12HR PRN 05/25/18 [History] Oxybutynin Chloride [Ditropan XL] 5 mg PO DAILY 05/25/18 [History] Polyethylene Glycol 3350 [Miralax] 17 gm PO DAILY 05/25/18 [History] Pregabalin [Lyrica] 50 mg PO DAILY 05/25/18 [History] Ranitidine HCl 150 mg PO DAILY 05/25/18 [History] chlordiazePOXIDE/CLIDINIUM BR 1 cap PO DAILY 05/25/18 [History] glipiZIDE [Glucotrol] 2.5 mg PO AC-BRKFST 05/25/18 [History] Atorvastatin [Lipitor] 40 mg PO HS tab 05/27/18 [Rx] Cefuroxime Axetil [Ceftin] 500 mg PO BID 5 Days #10 tab 05/27/18 [Rx] Dicyclomine [Bentyl] 20 mg PO TID tab 05/27/18 [Rx] Isosorbide Mononitrate ER [Imdur] 30 mg PO DAILY tab.er.24h 05/27/18 [Rx] Nitroglycerin Sl Tabs [Nitrostat] 0.4 mg SUBLINGUAL Q5M PRN tab 05/27/18 [Rx] traMADol HCL [Ultram] 50 mg PO Q4HR PRN 3 Days #18 tab 05/27/18 [Rx] Follow up Appointment(s)/Referral(s): Juan Luis Phillips MD [Primary Care Provider] - 1-2 Days Activity/Diet/Wound Care/Special Instructions: [facility] Discharge Disposition: TRANSFER TO [facility]
--- NOTE | 2018-05-27 15:40 | P.PN ---
Subjective Progress Note Date: 05/27/18 This is a pleasant 82-year-old female with known history of coronary artery disease and prior bypass surgery, patient also has history of prior PCI, hypertension, diabetes, hyperlipidemia, she states that she used to follow with Dr. Pratt in the office, but has not seen him for several years according to the patient. She does reside in an extended care facility. Most recent hospitalization was in September 2016 her echo at that time showed an ejection fraction of 50-55%. Patient presented to [facility] mainly with symptoms of abdominal pain, she states that she was having episodes of diarrhea at home. Patient was also complaining of some midsternal chest pressure and heaviness. According to the patient she has not off and on almost on a daily basis since her bypass surgery. Patient is also complaining of generalized aches and pains in her lower extremities, she does state that she had a low- grade temperature at home. Complaining also of significant dysuria and urinary frequency. A CT of the abdomen and pelvis was performed at [place] which revealed possible cystitis. UA showed positive UTI. Chest x-ray did not reveal any acute abnormality. White blood cell count at [place] 21.0, hemoglobin 13, platelet count 3:15. Sodium 138, potassium 4.4, BUN 13 creatinine 0.5. Troponin 0.09 BNP level 3300 magnesium 1.4. Because of the abnormality in troponin, patient was transferred here to [facility]. Subsequent labs drawn here, white blood cell count 20.7 and 14.7, hemoglobin 10.9, platelet count 283. Sodium 139, potassium 3.9, BUN 13 and creatinine 0.5. Blood glucose on arrival here 353, plasma lactic acid 3.1. Troponins 0.07 , 0.05, 0.06. Stool for occult blood is positive. At the time of my examination this morning, patient continues to complain of significant abdominal discomfort. She also complains of bilateral leg pain. At present she denies any chest discomfort. EKG shows a normal sinus rhythm with nonspecific ST-T wave changes. 05/27/2018 Patient was seen and examined this morning, blood pressure 164/80, denies any chest discomfort at present, does complain of some mild abdominal discomfort and generalized aching all over. Echocardiogram with Doppler study was performed which revealed an ejection fraction of 50-55%. She continues to be on IV heparin which we will discontinue at this time. Echocardiogram with Doppler study revealed an ejection fraction of 50-55%. Objective - Vital Signs Vital signs: Vital Signs Temp 97.6 F 05/27/18 11:28 Pulse 84 05/27/18 11:28 Resp 16 05/27/18 11:28 BP 164/84 05/27/18 11:28 Pulse Ox 95 05/27/18 11:28 Intake & Output 05/26/18 05/27/18 05/27/18 18:59 06:59 18:59 Intake Total 1844.023 280 480 Output Total 1000 700 Balance 844.023 280 -220 Weight 94 kg Intake: Intake, IV Titration 1364.023 Amount Heparin Sod,Pork in 0.45% 139.023 NaCl 25,000 unit In 0.45 % NaCl 1 250ml.bag @ 11. 191 UNITS/KG/HR 10 mls/hr IV .Q24H GEE Rx#: [id number] Sodium Chloride 0.9% 1, 1125 000 ml @ 125 mls/hr IV . Q8H GEE Rx#:[id number] cefTRIAXone 1,000 mg In 100 Sodium Chloride 0.9% 50 ml @ 100 mls/hr IVPB Q12HR GEE Rx#:[id number] Oral 480 280 480 Output: Urine 1000 700 Other: Voiding Method Bedpan Bedpan Bedpan Diaper # Voids 1 # Bowel Movements 1 - Exam PHYSICAL EXAMINATION: GENERAL: 82-year-old female in no acute distress at the time of my examination HEENT: Head is atraumatic, normocephalic. Pupils equal, round. Sclera anicteric. Conjunctiva are clear. Mucous membranes of the mouth are moist. Neck is supple. There is no elevated jugular venous pressure. No carotid bruit is heard. HEART EXAMINATION: Heart S1 and S2 with soft systolic murmur is heard. CHEST EXAMINATION: Lungs are clear with diminished air entry to the bases. ABDOMEN: Soft, positive for generalized tenderness. Bowel sounds are heard. No organomegaly noted. EXTREMITIES: 1+ peripheral pulses with no evidence of peripheral edema and no calf tenderness noted. NEUROLOGIC patient is awake, alert and oriented 3 . - Labs CBC & Chem 7: 05/27/18 05:51 05/27/18 05:51 Labs: Abnormal Lab Results - Last 24 Hours (Table) 05/26/18 05/26/18 05/26/18 Range/Units 03:57 16:33 20:53 WBC (3.8-10.6) k/uL RBC (3.80-5.40) m/uL Hgb (11.4-16.0) gm/dL Hct (34.0-46.0) % Eosinophils # (0-0.7) k/uL APTT (22.0-30.0) sec Chloride (98-107) mmol/L Creatinine (0.52-1.04) mg/dL Glucose (74-99) mg/dL POC Glucose (mg/dL) 143 H 231 H (75-99) mg/dL Hemoglobin A1c 8.3 H (4.0-6.0) % Total Protein (6.3-8.2) g/dL Albumin (3.5-5.0) g/dL 05/26/18 05/27/18 05/27/18 Range/Units 22:18 05:51 05:51 WBC 10.8 H (3.8-10.6) k/uL RBC 3.37 L (3.80-5.40) m/uL Hgb 10.6 L (11.4-16.0) gm/dL Hct 33.5 L (34.0-46.0) % Eosinophils # 1.6 H (0-0.7) k/uL APTT 49.4 H (22.0-30.0) sec Chloride (98-107) mmol/L Creatinine (0.52-1.04) mg/dL Glucose (74-99) mg/dL POC Glucose (mg/dL) 201 H (75-99) mg/dL Hemoglobin A1c (4.0-6.0) % Total Protein (6.3-8.2) g/dL Albumin (3.5-5.0) g/dL 05/27/18 05/27/18 05/27/18 Range/Units 05:51 06:02 11:07 WBC (3.8-10.6) k/uL RBC (3.80-5.40) m/uL Hgb (11.4-16.0) gm/dL Hct (34.0-46.0) % Eosinophils # (0-0.7) k/uL APTT (22.0-30.0) sec Chloride 113 H (98-107) mmol/L Creatinine 0.44 L (0.52-1.04) mg/dL Glucose 163 H (74-99) mg/dL POC Glucose (mg/dL) 162 H 141 H (75-99) mg/dL Hemoglobin A1c (4.0-6.0) % Total Protein 6.0 L (6.3-8.2) g/dL Albumin 2.8 L (3.5-5.0) g/dL Microbiology - Last 24 Hours (Table) 05/26/18 05:00 Urine Culture - Final Urine,Voided 05/25/18 15:45 Blood Culture - Preliminary Blood No Growth after 24 hours Assessment and Plan Plan: Assessment and plan #1 symptoms of midsternal chest pressure and heaviness, EKG shows normal sinus rhythm with no acute changes. Troponins 0.09, 0.07, 0.05, .06. Possible acute coronary syndrome. #2 abdominal pain with associated diarrhea, and evidence of a urinary tract infection, lactic acid level positive, white blood cell count elevated. #3 known history of coronary artery disease with prior bypass surgery and PCI #4 hypertension #5 diabetes #6 hyperlipidemia #7 anemia, stool for occult blood is positive. Hemoglobin at [place] 13, hemoglobin here 10.9 #8 osteoarthritis Plan Echocardiogram with Doppler study revealed a normal left ventricular systolic function. We'll discontinue the IV heparin, increase dose of Coreg for more optimal blood pressure control. DNP note has been reviewed, I agree with a documented findings and plan of care. Patient was seen and examined.
[2018-05-28] MEDS ORDERED: CARVEDILOL 6.25 MG TAB PO SCH (07:30)
== END 2018-05-27 18:27 | DRG 872 ==
LOC: EC 12:31 → 3SCARD 13:18
PROVIDERS: ADMIT Hospitalist; ATTEND Hospitalist
DX: A41.9 Sepsis, unspecified organism (principal); I25.110 Atherosclerotic heart disease of native coronary artery with unstable angina pectoris; K92.1 Melena; D64.9 Anemia, unspecified; E11.22 Type 2 diabetes mellitus with diabetic chronic kidney disease; E11.42 Type 2 diabetes mellitus with diabetic polyneuropathy; E66.9 Obesity, unspecified; E78.5 Hyperlipidemia, unspecified; F51.04 Psychophysiologic insomnia; G89.29 Other chronic pain; I12.9 Hypertensive chronic kidney disease with stage 1 through stage 4 chronic kidney disease, or unspecified chronic kidney disease; I25.2 Old myocardial infarction; K57.30 Diverticulosis of large intestine without perforation or abscess without bleeding; K58.2 Mixed irritable bowel syndrome; M17.11 Unilateral primary osteoarthritis, right knee; N18.9 Chronic kidney disease, unspecified; N20.0 Calculus of kidney; N30.90 Cystitis, unspecified without hematuria; Z68.30 Body mass index [BMI] 30.0-30.9, adult; Z79.02 Long term (current) use of antithrombotics/antiplatelets; Z79.82 Long term (current) use of aspirin; Z79.84 Long term (current) use of oral hypoglycemic drugs; Z79.899 Other long term (current) drug therapy; Z80.1 Family history of malignant neoplasm of trachea, bronchus and lung; Z87.442 Personal history of urinary calculi; Z95.1 Presence of aortocoronary bypass graft; Z98.61 Coronary angioplasty status; H26.9 Unspecified cataract; Z88.1 Allergy status to other antibiotic agents; F41.9 Anxiety disorder, unspecified
CPT/HCPCS: 80053; 80061; 81001; 82272; 82550; 82553; 83036; 83605; 84484; 85025; 85610; 85730; 87040; 87086; 87324; 93005; 93306; 96365; 99291